=== PATIENT | female | born 1950 | race Caucasian/White ===

== ENCOUNTER 2023-12-24 12:03 | Outpatient (CLI) | payer MEDICARE, SELFPAY ==
[2023-12-24 13:25] LABS: Hematocrit 38.9 % (37.0-47.0); Hemoglobin 12.2 g/dL (12.0-15.0); Mean Corpuscular HGB Conc 31.4 g/dl (32-36); Mean Platelet Volume 11.1 fl (7.4-10.4); Platelet Count Result 235 k/mm3 (150-375); Red Blood Count 3.93 M/mm3 (4.2-5.4); Red Cell Distribution Width 16.2 % (11.5-14.5); White Blood Count 5.8 K/mm3 (4.5-10.0)
[2023-12-24 13:32] LABS: Alanine Aminotransferase 20 U/L (6-35); Alkaline Phosphatase 50 U/L (38-126); Anion Gap 10 mmol/L (8-16); Aspartate Amino Transferase 31 U/L (14-36); Bilirubin,Total 0.6 mg/dL (0.2-1.3); Blood Urea Nitrogen 25 mg/dL (7-17); Calcium 10.5 mg/dL (8.4-10.2); Carbon Dioxide 23 mmol/L (22-30); Chloride 104 mmol/L (98-107); Cholesterol 134 mg/dL (0-200); Estimated Glomerular Filt Rate 37; Glucose 93 mg/dL (65-110); HDL Direct 68 mg/dL; Potassium 3.9 mmol/L (3.4-5.0); Sodium 137 mmol/L (137-145); Triglycerides 74 mg/dL (<150)
[2023-12-24 13:43] LABS: LDL Cholesterol Direct 54 mg/dL
[2023-12-24 13:49] LABS: Free T4 Free Thyroxine 1.05 ng/mL (0.78-2.19)
== END 2023-12-24 12:04 | disposition home or self-care (01) ==
PROVIDERS: PCP Family Medicine; Visit Provider Physician Assistant
DX: R53.83 Other fatigue (principal); D64.9 Anemia, unspecified; Z13.1 Encounter for screening for diabetes mellitus; E11.9 Type 2 diabetes mellitus without complications; Z13.220 Encounter for screening for lipoid disorders
CPT/HCPCS: 36415; 80053; 80061; 83036; 84439; 84443; 85027

== ENCOUNTER 2024-01-02 12:37 | Outpatient (CLI) | payer MEDICARE, SELFPAY ==
--- NOTE | ~2024-01-02 | CT_ITS ---
EXAMINATION: CT brain wo con DATE: 01/02/2024 13:14 INDICATION: Headache TECHNIQUE: Computed tomography (CT) of the head was performed without intravenous contrast. Sagittal and coronal reconstructions were performed. The mA was adjusted according to patient size. Iterative reconstruction technique was employed. The dose-length product was 599.57 mGy-cm. COMPARISON: None FINDINGS: Small region of encephalomalacia consistent with chronic infarct at the anterosuperior aspect of the right insula and underlying periventricular white matter. No acute intracranial hemorrhage, acute inf arction or abnormal extra axial fluid collection. There is mild scattered white matter hypoattenuatio n consistent with chronic small vessel ischemic disease. Symmetric prominence of the sulci and and bell barachnoid spaces overlying the convexities consistent with mild age-appropriate diffuse cerebral vol ume loss. Ventricles are normal and symmetric. No mass/mass effect. Mild mucosal thickening the righ t maxillary, left sphenoid and bilateral ethmoid sinuses with posterior layering mucus in the left sp henoid sinus. The orbits and mastoid air cells are normal. Intracranial calcified cerebral atheroscle rosis is noted. IMPRESSION: 1. Small old infarct at the right insula and subinsular periventricular white matter. No acute intrac ranial process. 2. Age-related changes including mild diffuse volume loss and mild scattered white matter hypoattenua tion consistent with chronic small vessel ischemic disease. 3. Sinus disease with dependently layering mucus in the left sphenoid sinus. Correlate clinically for acute sinusitis. Reviewed, dictated and finalized at location L. IMPRESSION: 1. Small old infarct at the right insula and subinsular periventricular white m atter. No acute intracranial process. 2. Age-related changes including mild diffuse volume loss and mild scattered wh ite matter hypoattenuation consistent with chronic small vessel ischemic diseas e. 3. Sinus disease with dependently layering mucus in the left sphenoid sinus. Co rrelate clinically for acute sinusitis.
== END 2024-01-02 12:38 ==
PROVIDERS: PCP Physician Assistant; Visit Provider Physician Assistant
DX: R51.9 Headache, unspecified (principal); S09.90XA Unspecified injury of head, initial encounter; X58.XXXA Exposure to other specified factors, initial encounter
CPT/HCPCS: 70450

== ENCOUNTER 2024-07-06 12:23 | Outpatient (CLI) | payer MEDICARE, SELFPAY ==
--- NOTE | ~2024-07-06 | CT_ITS ---
EXAMINATION: CT diagnostic chest wo con DATE: 07/06/2024 14:12 INDICATION: R06.02 - Shortness of breath TECHNIQUE: Computed tomography (CT) of the chest was performed without intravenous contrast. Addition al 3D reconstructions utilizing coronal maximum intensity projection (MIP) were performed. Automated exposure control and iterative reconstruction technique were employed. The dose-length product was 18 9.19 mGy-cm. COMPARISON: None FINDINGS: Mildly decreased lung volumes with mosaic attenuation in both lungs which appears to result from atel ectasis related mild groundglass opacity with scattered subsegmental regions of more lucent air jasmin ing likely related to small airway disease. There is a concave contour to the posterior wall of the t rachea consistent with at least partially expiratory phase of imaging. Discoid atelectasis in the rig ht lower lobe. There are few small calcified right lower lobe nodules along with calcified right michel r and mediastinal lymph nodes and a single small hepatic calcification, all consistent with old granu lomatous disease. No pneumonia, septal line thickening to suggest pulmonary edema or pleural effusion . Cardiomegaly. Atherosclerotic coronary artery calcifications. No pericardial effusion. Thoracic aor ta is normal in caliber. No pathologically enlarged thoracic lymphadenopathy. 2-3 mm nonobstructing r ight renal stone. Cholecystectomy clips at the gallbladder fossa. Moderate thoracic spondylosis with chronic appearing mild anterior wedging of a few mid and lower thoracic vertebral bodies. IMPRESSION: 1. Small lung volumes with mosaic attenuation likely collecting atelectasis related to partially expi ratory phase of imaging with small regions of subsegmental air trapping related to small airway disea se. 2. Cardiomegaly. Reviewed, dictated and finalized at location B. IMPRESSION: 1. Small lung volumes with mosaic attenuation likely collecting atelectasis rel ated to partially expiratory phase of imaging with small regions of subsegmenta l air trapping related to small airway disease. 2. Cardiomegaly.
--- NOTE | 2024-07-07 09:23 | WPDPFTINT ---
PFT Procedure Performed PFT Procedure Performed Spirometry with Pre/Post Bronchodilator Plethysmography (Lung Vol) Diffusing Cap (DLCO) Flow Vol Loop PFT Interpretation Lung volumes were measured with the body plethysmography method. The diminished lung volumes are indicative of restrictive respiratory disease. Spirometry showed diminished expiratory flow rates and a normal FEV1 to FVC ratio 75%, also consistent with restrictive respiratory disease. Following administration of a bronchodilator there was significant increase in the FEV1. This significant improvement in expiratory flow rates after bronchodilators may suggest that there is an underlying obstructive airway disease that is being unmasked. Clinical correlation advised. Lung diffusion capacity is within the normal range at 83% predicted. The flow-volume loop is unremarkable. Impression: Mild restrictive respiratory disease. Significant response to bronchodilators may indicate underlying obstructive airway disease. Lung diffusion capacity within the normal range.
--- NOTE | 2024-07-07 09:29 | WPDSIXMINUTE ---
Six Minute Walk Procedure Procedure Performed Pulmonary Stress Test (6 min walk) Six Minute Walk Six Minute Walk: This 6 minute walk test was conducted with the patient breathing ambient air. The pre walk oxyhemoglobin saturation was 99%. The patient walked 152 m with no stops during testing. During the walk the oxyhemoglobin saturation remained in the range of 95% to 96%. Impression: No evidence of oxyhemoglobin desaturation on this testing.
== END 2024-07-06 12:24 | disposition home or self-care (01) ==
PROVIDERS: PCP Family Medicine; Visit Provider Physician Assistant
DX: R06.02 Shortness of breath (principal); R94.2 Abnormal results of pulmonary function studies; I51.7 Cardiomegaly
CPT/HCPCS: 71250; 94060; 94375; 94618; 94726; 94729

== ENCOUNTER 2024-07-19 12:12 | Outpatient (CLI) | payer MEDICARE, SELFPAY ==
--- NOTE | ~2024-07-19 | MR_ITS ---
MRI of the brain Clinical History: Mild cognitive impairment Technique: Axial and sagittal T1-weighted images were acquired. These were followed by axial T2-weigh geno, diffusion weighted, gradient, and FLAIR images. Findings: No acute infarct, intracranial hemorrhage or mass lesion. There is probable chronic infarct in the right frontal periventricular white matter. Probable small focal chronic infarct in the poste rior left temporal lobe. Ventricles and subarachnoid spaces are dilated. Orbits are unremarkable. Paranasal sinuses and mastoi d air cells are clear. Major flow voids are intact. Sagittal midline structures are intact. Probably empty sella syndrome. IMPRESSION: No definite acute abnormality. Chronic infarcts, as above. Probable empty sella syndrome. Reviewed, dictated and finalized at location .
== END 2024-07-19 12:13 | disposition home or self-care (01) ==
PROVIDERS: PCP Family Medicine; Visit Provider Psychiatry & Neurology Neurology
DX: G31.84 Mild cognitive impairment of uncertain or unknown etiology (principal); E11.9 Type 2 diabetes mellitus without complications; I10 Essential (primary) hypertension; G43.909 Migraine, unspecified, not intractable, without status migrainosus; G62.9 Polyneuropathy, unspecified; I48.0 Paroxysmal atrial fibrillation; Z87.828 Personal history of other (healed) physical injury and trauma
CPT/HCPCS: 70551

== ENCOUNTER 2024-08-18 09:08 | Outpatient (CLI) | payer MEDICARE, SELFPAY ==
--- NOTE | 2024-09-09 09:10 | WPDSLEEPSTUD ---
Sleep Study Date of Study: 08/18/24 Ordering Provider: NISHI Moy Interpreting Physician: Hien Sung DO Sleep Study Type: Polysomnogram Height: 1.57 m Weight: 77.111 kg Body Mass Index: 31.1 Neck Circumference (inches): 14 [place]: 7 Reason for Sleep Study Previously diagnosed DAYANNA but couldn't tolerate CPAP. Has difficulty falling and staying asleep. Sleep History The patient is a 74-year-old female that had a sleep study ordered by the pulmonary group for evaluation of sleep apnea. The patient denies awakening from sleep short of breath. She occasionally awakens at night with heartburn, belching or cough. She occasionally snores but it is never loud enough that others complain. She occasionally has trouble sleeping when she has a cold. She denies waking up gasping for air throughout the night. She denies having breathing problems at night observed by herself or others. She occasionally sweats excessively at night. She denies having heart palpitations or irregular heartbeats during the night. She frequently falls asleep during the day but never while driving. She denies sleep paralysis, cataplexy and hypnagogic / hypnopompic hallucinations. She denies having trouble at school or work due to sleepiness. She occasionally has nightmares. She occasionally remembers her dreams. She frequently has thoughts racing through her mind. She occasionally feels sad, depressed and anxious. She occasionally has muscular tension. She occasionally notices parts of her body jerk. She frequently kicks during the night. She frequently has crawling and aching feelings in her legs and occasionally has leg pain during the night. She denies grinding her teeth during sleep and denies awakening with morning jaw pain. She is frequently bothered by pain during the day and occasionally awakened by pain during the night. She frequently wakes up feeling stiff in the morning. She frequently wakes up with sore or achy muscles. She frequently wakes up with pain in the neck, spine or other joints. She goes to bed at 10:00 p.m. on weekdays and at 11:00 p.m. on the weekends. It takes her several hours to fall asleep. She wakes up twice throughout the night to urinate and is able to fall back asleep within 30 minutes. She wakes up at 10:00 a.m. on weekdays and between 1-2 p.m. on the weekends. She typically gets 8 hours of sleep per night. She will stay in bed for 30 minutes after waking up in the. She currently lives with her daughter and son-in-law. She denies consuming any caffeinated beverages within 2 hours of bedtime. She denies engaging in physical exercise before bedtime. She will read and watch television before falling asleep. She will take naps in the afternoon or the evening but they are not refreshing. She consumes 1 caffeinated beverage per day. She quit smoking cigarettes over 25 years ago. She denies alcohol and recreational drug use. [facility] Past Medical History Medical History Anxiety Arthritis Cerebral infarction Failed total left knee replacement HLD (hyperlipidemia) Hypertension Hypothyroidism Irritable bowel syndrome MCI (mild cognitive impairment) Migraine Mixed connective tissue disease Neuropathy PAF (paroxysmal atrial fibrillation) Polyarteritis nodosa Stroke (~2021) T2DM (type 2 diabetes mellitus) Surgical History Surgical History H/O decompression of ulnar nerve H/O: hysterectomy History of carpal tunnel surgery Hx of cholecystectomy Family History Family History Father Diabetes mellitus Hypertension Anxiety Depression Mother Depression Hypertension Anxiety Diabetes mellitus Sibling Alcoholism Cancer Cerebrovascular accident Daughter Breast cancer Hypertension Diabetes mellitus Social History Social History Smoking status: Former smoker Second hand tobacco smoke exposure: No Smoking end date: 10/21/98 Alcohol intake: never Substance use: never Substance use type: does not use Do You Feel Safe in your Home?: Yes Lack of Transportation: No Lack of Food: Never True Current Housing: I Have Housing Concerned About Future Housing: No Difficulty Paying Gas/Electric Bills: No Difficulty Paying for Meds: No Currently Unemployed: No Education: Bachelor's Degree Difficulty w/ Childcare or Family Care: No Occupation/Education: retired Gender identity (if verbalized by the patient): Female Sexual Orientation (if Verbalized by the Patient): Straight or Heterosexual Spiritual care concerns: No Agree to blood products: No Medications Home Medications Medication Instructions Recorded Confirmed Type atorvastatin 40 mg tablet 40 mg PO DAILY 12/24/23 07/16/24 History hydroxychloroquine 200 mg tablet 200 mg PO DAILY 12/24/23 07/16/24 History pentoxifylline 400 mg 400 mg PO TID 12/24/23 07/16/24 History tablet,extended release rivaroxaban 20 mg tablet (Xarelto) 20 mg PO QPM 12/24/23 07/16/24 History topiramate 25 mg capsule,extended 25 mg PO DAILY 12/24/23 07/16/24 History release 24 hr duloxetine 30 mg capsule,delayed 90 mg PO DAILY #270 caps 04/30/24 07/16/24 Rx release eszopiclone 1 mg tablet (Lunesta) 1 mg PO QHS #1 tablet 06/24/24 07/16/24 Rx krill oil 500 mg capsule mg PO DAILY 06/24/24 07/16/24 History loratadine 10 mg tablet (Allergy 10 mg PO DAILY 06/24/24 07/16/24 History Relief (loratadine)) qfmlwzoq-wgum-suls 8 mg-folic 400 1 tablet PO DAILY 06/24/24 07/16/24 History mcg-K 50 mcg-lutein 300 mcg tablet (Centrum Silver Women) fenofibrate 160 mg tablet 160 mg PO DAILY #90 tabs 06/28/24 07/16/24 Rx metoprolol succinate 50 mg 50 mg PO DAILY #90 tabs 06/28/24 07/16/24 Rx tablet,extended release 24 hr levothyroxine 50 mcg tablet 50 mcg PO DAILY #90 tabs 06/30/24 07/16/24 Rx albuterol sulfate 90 mcg/actuation 1 puff inhalation Q4H PRN 07/09/24 07/16/24 Rx aerosol inhaler shortness of breath or wheezing 90 days #3 device budesonide-formoterol HFA 160 2 puff inhalation Q12H 90 days #3 07/09/24 07/16/24 Rx mcg-4.5 mcg/actuation aerosol device inhaler (Symbicort) dicyclomine 20 mg tablet 20 mg PO BID #180 tabs 07/10/24 07/16/24 Rx ezetimibe 10 mg tablet (Zetia) 10 mg PO DAILY #90 tabs 08/06/24 Rx omeprazole 20 mg capsule,delayed 20 mg PO DAILY #90 caps 08/06/24 Rx release rimegepant 75 mg disintegrating 75 mg PO ONCE PRN migraine 08/11/24 Rx tablet (Nurtec ODT) headache #18 tabs gabapentin 300 mg capsule 300 mg PO TID #270 caps 08/23/24 Rx diltiazem HCl 240 mg 240 mg PO DAILY #90 caps 08/24/24 Rx capsule,extended release 24 hr Sleep Procedure A full night polysomnogram using the [employer]ia multi-channel system recorded the standard physiologic parameters including EEG, EOG, submentalis EMG, anterior tibialis EMG, EKG, body position, nasal and oral airflow using nasal pressure sensor and thermistor.? Respiratory parameters of chest and abdominal movements were recorded with Respiratory Inductance Plethysmography belts. Oxygen saturation was recorded by pulse oximetry. Video monitoring was also performed. Sleep stages, periodic limb movements, and EEG arousals were scored in 30 second epochs according to the criteria of the AASM Scoring Manual. The Apnea-Hypopnea Index was calculated using CMS guidelines for definition of hypopnea with 4% O2 desaturations while scoring respiratory events. Sleep Architecture The total recording time was 433.5 minutes.? The total sleep time was 149.0 minutes. Sleep latency was 61.7 minutes. REM sleep was not achieved during this study. Sleep efficiency was 34.4%. The patient had 25 awakenings for an awakening index of 10.1. Wake after sleep onset time was 223.0 minutes. The patient spent 36.5 minutes, 24.5% of total sleep time in Stage N1. The patient spent 96.0 minutes, 64.4% in Stage N2. The patient spent 16.5 minutes, 11.1% in Stage N3. The patient spent 0.0 minutes, 0.0% in Stage REM sleep. Respiratory Analysis The patient had 2 hypopneas, 17 obstructive apneas for an overall Apnea Hypopnea Index of 7.7. The REM Apnea Hypopnea Index was -. The NREM Apnea Hypopnea Index was 7.7. The patient had a Central Apnea Hypopnea Index of 0. There were 3 Respiratory Effort Related Arousals resulting in a RERA index of 1.2 events per hour. The Respiratory Disturbance Index is 8.9 events per hour. There was no evidence of Terrence-Antonio Respirations. Arousals There were 81 total arousals for an arousal index of 32.6. There were 54 spontaneous arousals for an index of 21.7. There were 5 arousals due to respiratory events for an index of 2.0. There were 16 arousals due to periodic limb movements for an index of 6.4.? There were 6 arousals due to isolated limb movements for an index of 2.4. Periodic Limb Movements The patient had 18 isolated limb movements with an index of 7.2. The patient had 78 periodic limb movements with an index of 31.4, which is elevated (normal < 15). Patient had a total of 96 limb movements with a total limb movement index of 38.7. Oximetry Data The patient had an average oxygen saturation of 97.0% in sleep with a minimum oxygen saturation of 91.0% and a maximum oxygen saturation of 100.0%. The patient had 8 oxygen desaturations that were 4% or greater resulting in an Oxygen Desaturation Index of 3.2.? The patient spent 0 minutes of total sleep time with an oxygen saturation below 88%. Snoring Profile Mild to moderate snoring was present throughout the study. Cardiac Profile The EKG showed atrial fibrillation. The patient had an average pulse rate of 75.8 bpm with a minimum pulse of rate of 55.0 bpm and a maximum pulse rate of 104.0 bpm.? EEG Profile No signs of seizure activity seen. Assessment and Plan Assessment and Plan (1) Obstructive sleep apnea: Code(s): G47.33 - Obstructive sleep apnea (adult) (pediatric) Status: Acute Assessment and Plan: The patient had an overall AHI of 7.7 with desaturation down to 91%. This is consistent with mild sleep apnea. Due to the patient's atrial fibrillation, she qualifies for treatment. I recommend that the patient have a CPAP titration study with the use of a hypnotic (Lunesta 3 mg or Ambien 10 mg) to ensure we obtain enough sleep data and find an optimal pressure. Despite the patient taking Lunesta 2 mg for this study, she took an hour to fall asleep and slept <40% of the night. The patient had a significant number of limb movements during the study with the majority being periodic in nature. The patient's sleep history is highly suggestive of Restless Leg Syndrome. I recommend that the patient have a serum ferritin drawn for evaluation of iron deficiency anemia. If the patient has a serum ferritin less than 75 ng/mL, I recommend starting a daily iron supplement and a Vitamin C supplement for better absorption. If the serum ferritin is greater than 75 ng/mL, I recommend starting a dopamine agonist and titrating the dose until symptoms resolve. There are nonpharmacological methods to treat limb movements including daily exercise, stretching calf muscles before bed, avoiding excessive amounts of caffeine and alcohol, vitamin B supplementation, magnesium lotion massaged into legs before bed, and use of a weighted blanket. Data The data obtained during this sleep study is adequate for interpretation. Certification This sleep study has been reviewed by a board certified sleep medicine physician.
[2024-09-14 14:35] VITALS: BMI 31.1
== END 2024-08-19 06:34 | disposition home or self-care (01) ==
LOC: ANHCSM 09:11
PROVIDERS: PCP Family Medicine; Visit Provider Physician Assistant
DX: G47.33 Obstructive sleep apnea (adult) (pediatric) (principal)
CPT/HCPCS: 95810

== ENCOUNTER 2024-09-26 09:26 | Outpatient (CLI) | payer MEDICARE, SELFPAY ==
--- NOTE | ~2024-09-26 | US_ITS ---
Procedure: Duplex Doppler examination of the bilateral carotids. Indication: Cerebral infarction Technique: Real time, color-flow and pulse wave Doppler examination of the bilateral carotids was performed. Findings: Medrano scale ultrasonography of the right neck demonstrated no significant plaque. There was demonstrat ion of normal color-flow and Doppler waveforms within the right common, internal and external carotid arteries. The peak systolic velocities in the right common, internal and external carotid arteries w ere demonstrated to be 70 cm/sec, 49 cm/sec and 37 cm/sec respectively. The right ICA/CCA ratio was 1 .0.The proximal right internal carotid artery demonstrates 0% stenosis relative to the normal distal artery lumen diameter. Medrano scale sonography of the left neck demonstrated no significant plaque. There was demonstration of normal color-flow and wave forms within the left common, internal and external carotid arteries. The peak systolic velocities in the left common, internal and external carotid arteries were demonstrate d to be 52cm/sec, 95 cm/sec and 81 cm/sec respectively. The left ICA/CCA ratio was 2.0. The proximal left internal carotid artery demonstrates 0% stenosis relative to the normal distal artery lumen diam eter. There was antegrade flow demonstrated in the bilateral vertebral arteries. Impression: No hemodynamically significant stenosis of the bilateral internal carotid arteries. Antegrade flow in the bilateral vertebral arteries. Note: The methodology used is an indirect measurement validated against a direct method (such as the NASCET criteria) that compares diameters at the stenosis to the distal ICA. Reviewed, dictated and finalized at [facility]. MOTOR OPERATOR Impression: No hemodynamically significant stenosis of the bilateral internal carotid arter ies. Antegrade flow in the bilateral vertebral arteries. Note: The methodology used is an indirect measurement validated against a direct meth od (such as the NASCET criteria) that compares diameters at the stenosis to the distal ICA.
== END 2024-09-26 09:27 | disposition home or self-care (01) ==
PROVIDERS: PCP Family Medicine; Visit Provider Psychiatry & Neurology Neurology
DX: I63.9 Cerebral infarction, unspecified (principal)
CPT/HCPCS: 93880

== ENCOUNTER 2024-09-26 09:46 | Observation (INO) | payer MEDICARE, SELFPAY ==
[2024-09-26] VITALS (33 sets, daily range): BP systolic 106–140; BP diastolic 47–89; PULSE 61–88; RESP 13–21; TEMP 36.3–36.9; O2SAT 83–100; BMI 34.9
--- NOTE | ~2024-09-26 | MR_ITS ---
MRI of the lumbar spine Clinical History: Pain, right lower extremity weakness Technique: Axial T2-weighted images, and sagittal T1-weighted, T2-weighted, and T2 fat-sat images wer e acquired. Findings: There is no fracture of the lumbar spine. There is 4 mm anterolisthesis of L4 over L5. No b one marrow signal abnormality seen. At L1-L2, there is no disc bulge or herniation. There is mild facet arthropathy. No central canal eladio nosis or neural foraminal narrowing. At L2-L3, there is no disc bulge or herniation. There is mild to moderate facet arthropathy. No centr al canal stenosis or neural foraminal narrowing. At L3-L4, there is no disc bulge or herniation. There is mild to moderate facet arthropathy. No centr al canal stenosis or neural foraminal narrowing. At L4-L5, there is minimal disc bulge and severe facet arthropathy. No central canal stenosis or neur al foraminal narrowing. At L5-S1, there is no disc bulge or herniation. There is moderate to advanced facet arthropathy. No s felicity canal stenosis or neural foraminal narrowing. Paravertebral soft tissues are unremarkable. There is a probable mild syrinx of the very distal spina l cord, the central spinal canal dilated to 2 mm. Impression: Facet arthropathy and lumbar spine, as above, but no spinal canal stenosis or neural foraminal narrow ing. No disc bulge or herniation. 4 mm anterolisthesis of L4 over L5. Mild syrinx of the distal thoracic spinal cord, as detailed above. Reviewed, dictated and finalized at location . ACCOUNTANT Impression: Facet arthropathy and lumbar spine, as above, but no spinal canal stenosis or n eural foraminal narrowing. No disc bulge or herniation. 4 mm anterolisthesis of L4 over L5. Mild syrinx of the distal thoracic spinal cord, as detailed above.
--- NOTE | ~2024-09-26 | CT_ITS ---
EXAMINATION: CTA brain carotid DATE: 09/26/2024 15:10 INDICATION: Right hemiparesis. TECHNIQUE: Computed tomographic angiography (CTA) of the head was performed with 100 mL Omnipaque-350 intravenous contrast. CTA of the neck was performed with intravenous contrast. Automated exposure co ntrol and iterative reconstruction technique were employed. The dose-length product was 996.03 mGy-cm . Maximum intensity projection and volume rendered 3D-reconstructions were created by the [employer] t on a separate workstation. COMPARISON: Head CT 09/26/2024 FINDINGS: HEAD CTA: There are old infarcts involving the left cerebellum, left occipital lobe, right insula, an d right frontal lobe. There is no intracranial hemorrhage, acute infarction, or abnormal intracranial mass lesion. The ventricles are normal in size. The orbits are normal. There is mucosal thickening i n the paranasal sinuses. There is a small right mastoid effusion. The vertebral arteries are codomina nt. There is associated stenosis of basilar artery or the posterior cerebral arteries. There is no si gnificant stenosis of the intracranial internal carotid arteries or anterior or middle cerebral arter ies. Anterior communicating artery is normal. The posterior communicating arteries are normal. NECK CTA: There are no pathologically enlarged lymph nodes. There is no significant stenosis of the v ertebral arteries. There is plaque in the proximal internal carotid arteries. 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 There is 0% stenosis of the proximal right int ernal carotid artery relative to normal distal artery lumen diameter (NASCET criteria). There is 38% stenosis of the proximal left internal carotid artery relative to normal distal artery lumen diameter . There is moderate cervical spondylosis. There is an old healed fracture of the sternum. There are o ld healed fractures of T1 and T6 vertebral bodies. IMPRESSION: 1. 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 2. No aneurysm or significant intracranial arterial stenosis. 3. 0% stenosis of the proximal right internal carotid artery relative to normal distal artery lumen d iameter (NASCET criteria). 4. 38% stenosis of the proximal left internal carotid artery relative to normal distal artery lumen d iameter. Reviewed, dictated and finalized at location A. LE APPLICATION ARCHITECT IMPRESSION: 1. 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 2. No aneurysm or significant intracranial arterial stenosis. 3. 0% stenosis of the proximal right internal carotid artery relative to normal distal artery lumen diameter (NASCET criteria). 4. 38% stenosis of the proximal left internal carotid artery relative to normal distal artery lumen diameter.
--- NOTE | ~2024-09-26 | XR_ITS ---
3 VIEWS LUMBAR SPINE Ordering provider: Jose Lisa MD History: . Spondylolisthesis . Comparison: None. FINDINGS: VERTEBRAL BODIES:Anterolisthesis at the level of L4-L5. No visible fracture or subluxation. DISK SPACES: Narrowing of the disc L2-L3 and L4-L5. SOFT TISSUES: Atherosclerotic changes of the aorta. IMPRESSION: No acute osseous abnormality lumbar spine. Anterolisthesis at the level of L4-L5. Reviewed, dictated and finalized at location A. T NURSE MANAGER
--- NOTE | ~2024-09-26 | MR_ITS ---
EXAMINATION: MR brain/brain stem wo con DATE: 09/27/2024 09:46 INDICATION: Right lower extremity weakness. TECHNIQUE: Magnetic resonance imaging (MRI) of the brain and brainstem was performed without intraven ous contrast. COMPARISON: Brain MRI 07/19/2024, CT 09/26/2024 FINDINGS: There is an old infarct in left occipital lobe. There is an old infarct involving right fro ntal lobe and right insula. There are small old infarcts in the cerebellum bilaterally There is no in tracranial hemorrhage, acute infarction, or abnormal intracranial mass lesion. The ventricles are nor mal in size. The orbits are normal. There is mild mucosal thickening in the paranasal sinuses. There is a small right mastoid effusion. IMPRESSION: 1. Old infarcts involving the cerebellum, left occipital lobe, right insula, and right frontal lobe. Reviewed, dictated and finalized at location A. LE SCHOOL SPANISH TEACHER IMPRESSION: 1. Old infarcts involving the cerebellum, left occipital lobe, right insula, an d right frontal lobe.
--- NOTE | ~2024-09-26 | CT_ITS ---
EXAMINATION: CT brain wo con DATE: 09/26/2024 10:51 INDICATION: Altered mental status. TECHNIQUE: Computed tomography (CT) of the head was performed without intravenous contrast. The mA wa s adjusted according to patient size. Iterative reconstruction technique was employed. The dose-lengt h product was 605.33 mGy-cm. COMPARISON: Head CT 01/02/2024, brain MRI 07/19/2024 FINDINGS: There is a small old infarct in left cerebellum. There is an old infarct involving the righ t insula and right frontal lobe. There is an old infarct in the left occipital lobe. There is no intr acranial hemorrhage, acute infarction, or abnormal intracranial mass lesion. The ventricles are genaro l in size. The orbits are normal. There is mucosal thickening in the paranasal sinuses. There is a sm all right mastoid effusion. The orbits are normal. IMPRESSION: 1. 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 Reviewed, dictated and finalized at location A. DIRECTOR IMPRESSION: 1. 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
--- NOTE | ~2024-09-26 | XR_ITS ---
EXAMINATION: XR chest 1V portable DATE: 09/26/2024 10:27 INDICATION: Altered mental status. TECHNIQUE: A single frontal view of the chest was obtained. COMPARISON: Chest CT 07/06/2024 FINDINGS: There is no pneumonia, pleural effusion, or pneumothorax. Cardiomegaly is noted. IMPRESSION: 1. Cardiomegaly. Reviewed, dictated and finalized at location A. OR MOBILE WEB DEVELOPER IMPRESSION: 1. Cardiomegaly.
--- NOTE | ~2024-09-26 | XR_ITS ---
EXAMINATION: XR lumbar spine 2-3V DATE: 09/27/2024 09:50 INDICATION: Low back pain. Right leg weakness. TECHNIQUE: 3 views of lumbar spine were obtained. COMPARISON: Chest CT 07/06/2024 FINDINGS: There is 3 mm anterolisthesis of L4 on L5. There is a chronic compression fracture of T11. There is mildly decreased disc height at L4-L5. There is multilevel facet joint osteoarthritis, sever e in lower lumbar spine. Surgical clips in the right upper quadrant are likely from cholecystectomy. IMPRESSION: 1. Mild lumbar spondylosis. Reviewed, dictated and finalized at location A. CONSULTANT IMPRESSION: 1. Mild lumbar spondylosis.
--- NOTE | 2024-09-26 09:49 | ECG_ITS ---
Test Date: 2024-09-26 10:01:40 Measurements Intervals [place] Rate: 83 P: 0 CA: 0 QRS: 58 QRSD: 97 T: 2 QT: 373 QTc: 439 Interpretive Statements ATRIAL FIBRILLATION LOW QRS VOLTAGE IN PRECORDIAL LEADS [QRS DEFLECTION < 1.0 mV IN CHEST LEADS] NONSPECIFIC T-WAVE ABNORMALITY ABNORMAL RHYTHM ECG No previous ECG available for comparison Electronically Signed On 09-26-2024 14:43:04 [employer] by Miguel Dietrich M.D.
[2024-09-26 10:25] LABS: Basophils Percent Auto 0.4 % (0.2-1.2); Eosinophils Absolute Auto 0.2 K/mm3 (0-0.3); Eosinophils Percent Auto 4.5 % (0-4.4); Hematocrit 39.3 % (37.0-47.0); Hemoglobin 12.9 g/dL (12.0-15.0); Immature Granulocyte Absolute 0.01 K/mm3 (0.00-0.031); Immature Granulocyte Percent A 0.2 % (0-0.5); Lymphocytes Absolute Auto 1.69 K/mm3 (0.9-3.2); Mean Corpuscular HGB Conc 32.8 g/dl (32-36); Mean Corpuscular Hemoglobin 32.7 pg (26-34); Mean Corpuscular Volume 99.7 fl (80-100); Mean Platelet Volume 11.1 fl (7.4-10.4); Monocytes Absolute Auto 0.4 K/mm3 (0.1-0.6); Monocytes Percent Auto 9.2 % (2.6-8.5); Neutrophils Absolute Auto 2.3 K/mm3 (1.3-6.7); Neutrophils Percent Auto 49.7 % (45.5-73.1); Platelet Count Result 203 k/mm3 (150-375); Red Blood Count 3.94 M/mm3 (4.2-5.4); Red Cell Distribution Width 15.1 % (11.5-14.5); White Blood Count 4.7 K/mm3 (4.5-10.0)
[2024-09-26 10:34] LABS: Alanine Aminotransferase 21 U/L (6-35); Albumin Level 3.9 g/dL (3.5-5.1); Alkaline Phosphatase 40 U/L (38-126); Anion Gap 4 mmol/L (4-12); Aspartate Amino Transferase 40 U/L (14-36); Bilirubin,Total 0.7 mg/dL (0.2-1.3); Blood Urea Nitrogen 29 mg/dL (7-17); Calcium 10.6 mg/dL (8.4-10.2); Carbon Dioxide 30 mmol/L (22-30); Chloride 106 mmol/L (98-107); Estimated CRCL calculation 39 ml/min; Estimated Glomerular Filt Rate 44; Glucose 79 mg/dL (65-110); Potassium 3.8 mmol/L (3.4-5.0); Sodium 140 mmol/L (137-145)
[2024-09-26 10:37] LABS: INR 1.7; Prothrombin Time 20.3 Seconds (11.1-14.7)
[2024-09-26 10:38] LABS: Partial Thromboplastin Time 37.8 Seconds (22.3-36.8)
[2024-09-26 10:46] LABS: Troponin I < 0.012 ng/mL (0.000-0.034)
--- NOTE | 2024-09-26 12:13 | ED_ITS ---
HPI - General Adult General Chief complaint: Unspecified Stated complaint: rapid response Time Seen by Provider: 09/26/24 11:01 History of Present Illness HPI narrative: 74-year-old female presenting with right-sided weakness and shakiness. She was getting an outpatient ultrasound performed when she was noted to be dragging her right leg after registration. A rapid response was called and she was brought to the ER. She states that she has had weakness in this leg before but it feels worse. She also feels shaky in her right leg and right arm which she says is new. Denies any new pain. Her daughter is at bedside and helps with the history. She is concerned that the patient has been increasingly depressed and has not been eating or drinking. She is also concerned about polypharmacy and the number medication she is on. Related Data Home Medications ?Medication ?Instructions ?Recorded ?Confirmed ?Last Taken ?Type hydroxychloroquine 200 mg tablet 200 mg PO DAILY 12/24/23 09/26/24 Unknown History pentoxifylline 400 mg 400 mg PO TID 12/24/23 09/26/24 Unknown History tablet,extended release rivaroxaban 20 mg tablet (Xarelto) 20 mg PO QPM 12/24/23 09/26/24 Unknown History krill oil 500 mg capsule 500 mg PO BID 06/24/24 09/26/24 Unknown History loratadine 10 mg tablet (Allergy 10 mg PO DAILY 06/24/24 09/26/24 Unknown History Relief (loratadine)) [id number] 8 mg-folic 400 1 tablet PO DAILY 06/24/24 09/26/24 Unknown History mcg-K 50 mcg-lutein 300 mcg tablet (Centrum Silver Women) atorvastatin 40 mg tablet 40 mg PO HS 09/26/24 09/26/24 Unknown History docusate sodium 100 mg capsule 100 mg PO QID 09/26/24 09/26/24 Unknown History (Colace) ezetimibe 10 mg tablet (Zetia) 10 mg PO HS 09/26/24 09/26/24 Unknown History gabapentin 300 mg capsule 300 mg PO QAM 09/26/24 09/26/24 Unknown History gabapentin 300 mg capsule 600 mg PO HS 09/26/24 09/26/24 Unknown History gabapentin 300 mg tablet 300 mg PO 1200 09/26/24 09/26/24 Unknown History topiramate 25 mg capsule,extended 25 mg PO QAM 09/26/24 09/26/24 Unknown History release 24 hr Allergies Allergy/AdvReac Type Severity Reaction Status Date / Time latex Allergy Severe Itching Verified 08/13/24 14:32 Sulfa (Sulfonamide Allergy Severe Rash Verified 08/13/24 14:32 Antibiotics) acetaminophen (From [place]) AdvReac Severe Hallucinati Verified 08/13/24 14:32 ng hydrocodone (From [place]) AdvReac Severe Hallucinati Verified 08/13/24 14:32 ng hydromorphone (From Dilaudid) AdvReac Severe Hallucinati Verified 08/13/24 14:32 ng kiwi Allergy Severe Swelling Uncoded 09/26/24 21:25 of Lip/Tongue/Throat Review of Systems 2 Review of Systems: All systems reviewed & are unremarkable except as noted in HPI and below PMFSH Past Medical History Medical History (Updated 10/03/24 @ 13:25 by Charissa Key MD) Bilateral occipital neuralgia Migraine syndrome TIA (transient ischemic attack) Cerebral infarction MCI (mild cognitive impairment) Failed total left knee replacement T2DM (type 2 diabetes mellitus) Neuropathy Hypothyroidism Mixed connective tissue disease Polyarteritis nodosa HLD (hyperlipidemia) Hypertension PAF (paroxysmal atrial fibrillation) Irritable bowel syndrome Stroke (~2021) Migraine Arthritis Anxiety Surgical History Surgical History History of carpal tunnel surgery H/O decompression of ulnar nerve Hx of cholecystectomy H/O: hysterectomy Family History Family History Father Diabetes mellitus Hypertension Anxiety Depression Mother Depression Hypertension Anxiety Diabetes mellitus Sibling Alcoholism Cancer Cerebrovascular accident Daughter Breast cancer Hypertension Diabetes mellitus Social History Social History Smoking status: Former smoker Second hand tobacco smoke exposure: No Smoking end date: 10/21/98 Alcohol intake: current Drinks per week: 1 Substance use: never Substance use type: does not use Do You Feel Safe in your Home?: Yes Lack of Transportation: No Lack of Food: Never True Current Housing: I Have Housing Concerned About Future Housing: No Difficulty Paying Gas/Electric Bills: No Difficulty Paying for Meds: No Currently Unemployed: No Education: Bachelor's Degree Difficulty w/ Childcare or Family Care: No Occupation/Education: retired Gender identity (if verbalized by the patient): Female Sexual Orientation (if Verbalized by the Patient): Straight or Heterosexual Spiritual care concerns: No Agree to blood products: No Exam 2 Narrative: GENERAL: Nontoxic, no acute distress, pleasant cooperative HEAD: Normocephalic, atraumatic. EYES: PERRLA and EOMI. ENT: Mucous membranes moist. NECK: Supple. CHEST: Clear to auscultation. No respiratory distress. HEART: Regular rate and rhythm ABDOMEN: Soft, nontender, nondistended EXTREMITIES: Normal range of motion. SKIN: Warm, dry, no rash. NEURO: Alert and oriented x3. 5/5 strength in all extremities though she is unable to lift her right leg as much as her left PSYCH: Normal mood and affect. Course Vital Signs Vital signs: Vital Signs Pulse Rate 68 09/26/24 09:49 Respiratory Rate 20 09/26/24 09:49 Blood Pressure 140/81 09/26/24 09:49 Temperature 98.8 F 09/29/24 14:00 Pulse Rate 89 09/29/24 14:00 Respiratory Rate 16 09/29/24 14:00 Blood Pressure 101/42 L 09/29/24 14:00 Pulse Oximetry 98 09/29/24 14:00 Oxygen Delivery Room Air 09/29/24 09:26 Fraction of Inspired Oxygen 21 09/28/24 08:58 Medical Decision Making [facility] Narrative Medical decision making narrative: 74-year-old female presenting with worsening right-sided weakness. Vitals are stable. EKG with atrial fibrillation with a ventricular rate in the 80s. Blood work without significant abnormalities. Chest x-ray without acute abnormalities. CT brain shows old infarcts. CTA was obtained which shows no large vessel occlusion. Patient is already anticoagulated. Will keep her for observation for TIA workup. She and her daughter are agreeable this plan. I spoke with the hospitalist who has accepted her for admission. I spoke with neurology will follow along. Differential Diagnosis Differential Diagnosis: Right-sided weakness, TIA, CVA Medical Records Medical records reviewed: Yes I reviewed the external patient's medical records. Vital Signs Vital Signs: Vital Signs Pulse Rate 68 09/26/24 09:49 Respiratory Rate 20 09/26/24 09:49 Blood Pressure 140/81 09/26/24 09:49 Temperature 98.8 F 09/29/24 14:00 Pulse Rate 89 09/29/24 14:00 Respiratory Rate 16 09/29/24 14:00 Blood Pressure 101/42 L 09/29/24 14:00 Pulse Oximetry 98 09/29/24 14:00 Oxygen Delivery Room Air 09/29/24 09:26 Fraction of Inspired Oxygen 21 09/28/24 08:58 Lab Data Lab results reviewed: Yes I reviewed the patient's lab results. 09/27/24 05:42 09/27/24 05:42 Labs: Lab Results 09/26/24 09/26/24 09/26/24 Range/Units 10:14 10:15 13:09 WBC 4.7 (4.5-10.0) K/mm3 RBC 3.94 L (4.2-5.4) M/mm3 Hgb 12.9 (12.0-15.0) g/dL Hct 39.3 (37.0-47.0) % MCV 99.7 (80-100) fl MCH 32.7 (26-34) pg MCHC 32.8 (32-36) g/dl RDW 15.1 H (11.5-14.5) % Plt Count 203 (150-375) k/mm3 MPV 11.1 H (7.4-10.4) fl Immature Gran % (Auto) 0.2 (0-0.5) % Neut % (Auto) 49.7 (45.5-73.1) % Lymph % (Auto) 36.0 (18.3-44.2) % [place] % (Auto) 9.2 H (2.6-8.5) % Eos % (Auto) 4.5 H (0-4.4) % Baso % (Auto) 0.4 (0.2-1.2) % Lymph # (Auto) 1.69 (0.9-3.2) K/mm3 [place] # (Auto) 0.4 (0.1-0.6) K/mm3 Eos # (Auto) 0.2 (0-0.3) K/mm3 Baso # (Auto) 0.0 (0.0-0.1) K/mm3 Abs Immat Gran (auto) 0.01 (0.00-0.031) K/mm3 Absolute Neuts (auto) 2.3 (1.3-6.7) K/mm3 Absolute Nucleated RBC 0.000 (0.0-0.012) K/mm3 Nucleated RBC % 0.0 (0.0-0.2) % PT 20.3 H (11.1-14.7) Seconds INR 1.7 APTT 37.8 H (22.3-36.8) Seconds Sodium 140 (137-145) mmol/L Potassium 3.8 (3.4-5.0) mmol/L Chloride 106 (98-107) mmol/L Carbon Dioxide 30 (22-30) mmol/L Anion Gap 4 (4-12) mmol/L BUN 29 H (7-17) mg/dL Creatinine 1.20 H (0.7-1.0) mg/dL Estim Creat Clear Calc 39 ml/min Estimated GFR 44 L (59 - ) Glucose 79 (65-110) mg/dL Calcium 10.6 H (8.4-10.2) mg/dL Total Bilirubin 0.7 (0.2-1.3) mg/dL AST 40 H (14-36) U/L ALT 21 (6-35) U/L Alkaline Phosphatase 40 (38-126) U/L Troponin I < 0.012 (0.000-0.034) ng/mL NT-Pro-B Natriuret Pep 2440 H (19.9-100) pg/mL Total Protein 7.0 (6.3-8.2) g/dL Albumin 3.9 (3.5-5.1) g/dL Urine Color Yellow (Yellow) Urine Appearance Turbid H (Clear) Urine pH 8.0 (5.0-9.0) Ur Specific [place] 1.022 (1.001-1.035) Urine Protein Trace (Negative) mg/dL Urine Glucose (UA) Negative (Negative) mg/dL Urine Ketones Negative (Negative) mg/dL Ur Blood (Man) Negative (Negative) Urine Nitrate Negative (Negative) Urine Bilirubin Negative (Negative) Urine Urobilinogen 1.0 (<2.0) mg/dL Leukocyte Esterase Rfl Trace H (Negative) NENA/UL Urine RBC 0-2 (0-2) /hpf Urine WBC 0-5 (0-3) /hpf Ur Squamous Epith Cells None seen (Few) /hpf Urine Bacteria None seen /hpf Urine Casts 3-5 Imaging Data Radiologist's impression: ITS Impressions Chest X-Ray 09/26/24 10:30 IMPRESSION: 1. Cardiomegaly. Head CT 09/26/24 10:55 IMPRESSION: 1. 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 Critical Care Time Critical Care Time Critical Care Time: No Discharge Plan Discharge Clinical Impression: TIA (transient ischemic attack), Right leg weakness Patient Disposition: Still a Patient Condition: Stable
--- NOTE | 2024-09-26 13:03 | PC.NURSE ---
pt to bathroom at this time- to provide a urine sample, will give medications when the patient returns to her room.
[2024-09-26] MEDS: KETOROLAC 15 MG/ML VIAL (*BKC) IV PUSH (13:09)
[2024-09-26] MEDS: SODIUM CHLORIDE 0.9% IV 1,000 ML 999 ML IV CONT (13:09)
[2024-09-26 13:22] LABS: Add Urine Microscopic? YES; Appearance Urine Turbid (Clear); Bacteria Urine None Seen /hpf; Bilirubin Urine Negative (Negative); Blood Urine Negative (Negative); Color Urine Yellow (Yellow); Glucose Urine UA Negative (Negative); Ketones Urine Negative (Negative); Leukocyte Esterase Ur Trace LEU/UL (Negative); Nitrate Urine Negative (Negative); Protein Urine Trace mg/dL (Negative); RBC Urine 0-2 /hpf (0-2); Specific Grav Ur 1.022 (1.001-1.035); Squamous Epithelial Cell Urine None Seen /hpf (Few); WBC Urine 0-5 /hpf (0-3)
--- NOTE | 2024-09-26 17:06 | PM.IMHP ---
H&P: HPI History of Present Illness Date/Time: 09/26/24 17:06 Chief Complaint: Right Lower Extremity Weakness Narrative: 74 y/o F presents here with right lower extremity weakness with PMH of CVA, hyperlipidemia, esophageal stricture (no diet modification, has to really chew food and drink a lot of fluids to manage and has previously had a esophageal dilation), hypertension, hypothyroidism, IBS, persistent AFib, sleep apnea (discontinued after laura loss, regained weight and told it is back but does not wear it due to issues with the mask fitting), and diabetes type 2 (resolved, not on medications in A1c 5.7% in July of 2024). The patient presented here via rapid response for further evaluation of right lower extremity weakness. The patient was here at [facility] for an ultrasound of her carotid arteries. After the patient was registered for this image the daughter noted that she was dragging her right lower extremity around 9:45-9:50 a.m. She has a history of weakness in this same extremity due to unknown reasons, has low back pain with hx of shooting pains in her right leg with last occurrence was Tuesday 09/25. States the pain was so excruciating that she felt like she would fall. Daughter also noted that the right leg and right arm had a tremor which she reports is new, discovered at same time as her change in gait. Last known well was around 9:20 a.m. She denies facial droop, dysphagia, dysarthria, right upper extremity weakness, vision changes, or dizziness. +mild headache when she arriver here for the US described as unilateral, behind her right eye, dull, poking sensation, and with later radiation into her posterior neck on the left and above her shoulder blades on the left. Patient also reported some transient tongue heaviness with some difficulty forming words (also felt swollen) and daughter also concerned about her left eye was slightly more droopy. Eyelid drooping not appreciated, tongue normal size and no numbness/heaviness present now. During her initial evaluation in the ED, daughter reported to the ED provider that she was concerned about polypharmacy as possible contributor, citing sleeping more (12+ hours per day, patient attributes this to depression) and she is concerned the patient is not spacing them out properly and taking them all at once. Example: if she wakes up at 3 a.m. she will take them at 4 a.m. and then may take her evening meds an hour or two later. Daughter has pills into days and also into AM and PM. Initial VS at presentation: 97.3? F, HR 68, RR 20, 140/81, and 95% on RA. ED workup showed: No leukocytosis, no anemia, INR 1.7, creatinine 1.2 and GFR 44 (previously 1.4 and GFR 40 on 08/03/2024), UA was turbid with trace leuks. CXR showed cardiomegaly. Head CT showed old infarcts involving the left cerebellum, left occipital lobe, right insula, and right frontal lobe. CTA of the head/neck read by stat reads, which showed no acute findings per ED provider. Review of Systems Review of Systems: All systems reviewed & are unremarkable except as noted in HPI and below PMFSH Past Medical History Medical History Anxiety Arthritis Cerebral infarction Failed total left knee replacement HLD (hyperlipidemia) Hypertension Hypothyroidism Irritable bowel syndrome MCI (mild cognitive impairment) Migraine Mixed connective tissue disease Neuropathy PAF (paroxysmal atrial fibrillation) Polyarteritis nodosa Stroke (~2021) T2DM (type 2 diabetes mellitus) Surgical History Surgical History H/O decompression of ulnar nerve H/O: hysterectomy History of carpal tunnel surgery Hx of cholecystectomy Family History Family History Father Diabetes mellitus Hypertension Anxiety Depression Mother Depression Hypertension Anxiety Diabetes mellitus Sibling Alcoholism Cancer Cerebrovascular accident Daughter Breast cancer Hypertension Diabetes mellitus Social History Social History Smoking status: Former smoker Second hand tobacco smoke exposure: No Smoking end date: 10/21/98 Alcohol intake: current Drinks per week: 1 Substance use: never Substance use type: does not use Do You Feel Safe in your Home?: Yes Lack of Transportation: No Lack of Food: Never True Current Housing: I Have Housing Concerned About Future Housing: No Difficulty Paying Gas/Electric Bills: No Difficulty Paying for Meds: No Currently Unemployed: No Education: Bachelor's Degree Difficulty w/ Childcare or Family Care: No Occupation/Education: retired Gender identity (if verbalized by the patient): Female Sexual Orientation (if Verbalized by the Patient): Straight or Heterosexual Spiritual care concerns: No Agree to blood products: No Meds Home Medications and Allergies Home Medications Medication Instructions Recorded Confirmed Type hydroxychloroquine 200 mg tablet 200 mg PO DAILY 12/24/23 09/26/24 History pentoxifylline 400 mg 400 mg PO TID 12/24/23 09/26/24 History tablet,extended release rivaroxaban 20 mg tablet (Xarelto) 20 mg PO QPM 12/24/23 09/26/24 History duloxetine 30 mg capsule,delayed 90 mg PO DAILY #270 caps 04/30/24 09/26/24 Rx release krill oil 500 mg capsule 500 mg PO BID 06/24/24 09/26/24 History loratadine 10 mg tablet (Allergy 10 mg PO DAILY 06/24/24 09/26/24 History Relief (loratadine)) lfvwtzfb-zhno-pidc 8 mg-folic 400 1 tablet PO DAILY 06/24/24 09/26/24 History mcg-K 50 mcg-lutein 300 mcg tablet (Centrum Silver Women) metoprolol succinate 50 mg 50 mg PO DAILY #90 tabs 06/28/24 09/26/24 Rx tablet,extended release 24 hr levothyroxine 50 mcg tablet 50 mcg PO DAILY #90 tabs 06/30/24 09/26/24 Rx albuterol sulfate 90 mcg/actuation 1 puff inhalation Q4H PRN 07/09/24 09/26/24 Rx aerosol inhaler shortness of breath or wheezing 90 days #3 device budesonide-formoterol HFA 160 2 puff inhalation Q12H 90 days #3 07/09/24 09/26/24 Rx mcg-4.5 mcg/actuation aerosol device inhaler (Symbicort) omeprazole 20 mg capsule,delayed 20 mg PO DAILY #90 caps 08/06/24 09/26/24 Rx release diltiazem HCl 240 mg 240 mg PO DAILY #90 caps 08/24/24 09/26/24 Rx capsule,extended release 24 hr aripiprazole 5 mg tablet (Abilify) 5 mg PO QHS #30 tabs 09/21/24 09/26/24 Rx dicyclomine 20 mg tablet 20 mg PO BID #180 tabs 09/24/24 09/26/24 Rx atorvastatin 40 mg tablet 40 mg PO HS 09/26/24 09/26/24 History docusate sodium 100 mg capsule 100 mg PO QID 09/26/24 09/26/24 History (Colace) ezetimibe 10 mg tablet (Zetia) 10 mg PO HS 09/26/24 09/26/24 History gabapentin 300 mg capsule 300 mg PO QAM 09/26/24 09/26/24 History gabapentin 300 mg capsule 600 mg PO HS 09/26/24 09/26/24 History gabapentin 300 mg tablet 300 mg PO 1200 09/26/24 09/26/24 History topiramate 25 mg capsule,extended 25 mg PO QAM 09/26/24 09/26/24 History release 24 hr topiramate 25 mg tablet 50 mg PO HS 09/26/24 09/26/24 History Allergies Allergy/AdvReac Type Severity Reaction Status Date / Time latex Allergy Severe Itching Verified 08/13/24 14:32 Sulfa (Sulfonamide Allergy Severe Rash Verified 08/13/24 14:32 Antibiotics) acetaminophen [From [place]] AdvReac Severe Hallucinati Verified 08/13/24 14:32 ng hydrocodone [From [place]] AdvReac Severe Hallucinati Verified 08/13/24 14:32 ng hydromorphone [From Dilaudid] AdvReac Severe Hallucinati Verified 08/13/24 14:32 ng kiwi Allergy Severe Swelling Uncoded 09/26/24 21:25 of Lip/Tongue/Throat Vital Signs Vital Signs - 24 hr 09/26/24 09:49 09/26/24 09:53 09/26/24 10:08 Temperature 97.4 F L Pulse Rate 68 61 78 Respiratory Rate 20 18 Blood Pressure 140/81 115/75 Pulse Oximetry 95 Oxygen Delivery Room Air 09/26/24 11:03 09/26/24 11:39 09/26/24 11:45 Temperature Pulse Rate 72 64 86 Respiratory Rate 15 16 17 Blood Pressure 112/64 Pulse Oximetry 98 100 Oxygen Delivery 09/26/24 11:46 09/26/24 12:00 09/26/24 12:02 Temperature Pulse Rate 70 77 85 Respiratory Rate 15 14 16 Blood Pressure 118/54 L 115/47 L Pulse Oximetry Oxygen Delivery 09/26/24 12:15 09/26/24 12:16 09/26/24 13:07 Temperature Pulse Rate 87 81 Respiratory Rate 18 16 Blood Pressure 106/89 Pulse Oximetry 98 90 83 L Oxygen Delivery 09/26/24 13:11 09/26/24 13:15 09/26/24 13:34 Temperature Pulse Rate 85 81 76 Respiratory Rate 15 21 H 18 Blood Pressure 130/69 Pulse Oximetry Oxygen Delivery 09/26/24 13:45 09/26/24 13:46 09/26/24 14:00 Temperature Pulse Rate 86 74 72 Respiratory Rate 17 15 13 Blood Pressure 110/64 Pulse Oximetry Oxygen Delivery 09/26/24 14:02 09/26/24 14:15 09/26/24 14:17 Temperature Pulse Rate 82 81 86 Respiratory Rate 18 17 15 Blood Pressure 122/61 108/77 Pulse Oximetry Oxygen Delivery 09/26/24 14:30 09/26/24 14:32 09/26/24 14:45 Temperature Pulse Rate 82 82 72 Respiratory Rate 18 16 15 Blood Pressure 124/68 Pulse Oximetry 100 Oxygen Delivery 09/26/24 14:47 09/26/24 15:10 09/26/24 15:15 Temperature Pulse Rate 76 79 78 Respiratory Rate 17 13 21 H Blood Pressure 111/63 Pulse Oximetry 100 Oxygen Delivery 09/26/24 15:30 09/26/24 15:45 09/26/24 16:00 Temperature Pulse Rate 79 88 78 Respiratory Rate 18 19 18 Blood Pressure Pulse Oximetry 98 Oxygen Delivery Exam Const: General: comfortable and no acute distress Other: , female, nontoxic appearance, elderly HENMT: Face/Nose/Sinus: Normal nares present Mouth: Yes moist mucous membranes Eyes: General: appearance normal, both eyes and all related structures Sclera: sclerae normal Pupils: Equal, round and reactive pupils present EOM: EOMs intact bilaterally Other: No nystagmus or gaze deviation noted. Resp: Effort & Inspection: normal respiratory effort Auscultation: clear to auscultation bilaterally Cardio: Rate: regular rate Rhythm: regular rhythm Other: S1-S2 present without murmur, rub, ectopy GI: Other: Abdomen soft, nondistended, nontender. Normoactive bowel sounds. Skin: General skin exam: normal color and no rashes or lesions noted Wounds: no wounds Neuro: Speech: normal speech Sensory Exam: normal sensation Other: No facial droop or dysarthria. No issues with extinction. No numbness. Pedal pushes equal and strong. Bilateral upper extremity orthodontic technician assistant equal and strong. No drift noted to the left lower extremity. Right leg weakness with lift some bouncing without hitting bed and fine tremor noted from exertion of holding up. A&O x4. Extrem: General: normal to inspection Psych: Mental Status: mental status grossly normal Affect: normal affect Other: Good insight and judgment, pleasant H&P: Results Labs Labs: Short CBC 09/26/24 Range/Units 10:15 WBC 4.7 (4.5-10.0) K/mm3 Hgb 12.9 (12.0-15.0) g/dL Hct 39.3 (37.0-47.0) % Plt Count 203 (150-375) k/mm3 BMP 09/26/24 10:15 Sodium 140 Potassium 3.8 Chloride 106 Carbon Dioxide 30 BUN 29 H Creatinine 1.20 H Glucose 79 Calcium 10.6 H Cardiac Enzymes 09/26/24 Range/Units 10:15 Troponin I < 0.012 (0.000-0.034) ng/mL Liver Function 09/26/24 Range/Units 10:15 Total Bilirubin 0.7 (0.2-1.3) mg/dL AST 40 H (14-36) U/L ALT 21 (6-35) U/L Alkaline Phosphatase 40 (38-126) U/L Albumin 3.9 (3.5-5.1) g/dL Urine 09/26/24 Range/Units 13:09 Urine Color Yellow (Yellow) Urine Appearance Turbid H (Clear) Urine pH 8.0 (5.0-9.0) Ur Specific [place] 1.022 (1.001-1.035) Urine Protein Trace (Negative) mg/dL Urine Glucose (UA) Negative (Negative) mg/dL Assessment and Plan Assessment and plan (1) Right leg weakness: Code(s): R29.898 - Other symptoms and signs involving the musculoskeletal system Status: Acute Assessment and Plan: New deficits of right lower extremity weakness starting discovered around 9:45 a.m. last known well at at 9:00 a.m. - admission for observation and telemetry - not candidate for thrombolytics, on Xarelto - not candidate for thrombectomy, no LVO seen on CTA - CXR: 1. Cardiomegaly - head CT: 1. 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 - CTA head/neck: 1. 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 2. No aneurysm or significant intracranial arterial stenosis. 3. 0% stenosis of the proximal right internal carotid artery relative to normal distal artery lumen diameter (NASCET criteria). 4. 38% stenosis of the proximal left internal carotid artery relative to normal distal artery lumen diameter. - neurology consulted, awaiting formal recs - brain MRI - echo w/Bubble ordered - adding XR lumbar spine to rule out ortho spine etiology for right lower extremity weakness - neuro checks Q4 - PT/OT to eval and treat - monitor daily labs - add lipid panel, A1C 5.7% on 08/03/2024 - fall precautions - continue Atorvastatin 40 mg PO - on Xarelto, continue - consider 30 day event monitoring at discharge - DDx: orthospine etiology vs CVA vs TIA (2) T2DM (type 2 diabetes mellitus): Qualifiers: Diabetes mellitus complication status: without complication Diabetes mellitus half-way insulin use: unspecified manager intermediate insulin use status Qualified Code(s): E11.9 - Type 2 diabetes mellitus without complications Code(s): E11.9 - Type 2 diabetes mellitus without complications Status: Resolved Assessment and Plan: - A1C 5.7% on 08/03/2024 (3) Hypothyroidism: Qualifiers: Hypothyroidism type: other Qualified Code(s): E03.8 - Other specified hypothyroidism Code(s): E03.9 - Hypothyroidism, unspecified Status: Chronic Assessment and Plan: - continue home medication: 50 mcg daily (4) Hypertension: Qualifiers: Hypertension type: unspecified Qualified Code(s): I10 - Essential (primary) hypertension Code(s): I10 - Essential (primary) hypertension Status: Chronic Assessment and Plan: - chronic, currently 111/63 - continue home medications: Metoprolol ER 50 mg daily - monitor (5) Obstructive sleep apnea: Code(s): G47.33 - Obstructive sleep apnea (adult) (pediatric) Status: Chronic Assessment and Plan: - continue home CPAP Plan Diet: Heart healthy GI Prophylaxis: Not currently indicated DVT Prophylaxis: Continue Xarelto Lines: Peripheral Code Status: DNR/DNI, no medications Quality VTE Prophylaxis VTE prophylaxis: pharmacologic ordered Hospitalist MIPS Advance Care Plan I have confirmed that the patient's Advanced Care Plan is present, code status is documented, or surrogate decision maker is listed in patient medical record.: Yes Medication Reconciliation I have utilized all available resources to obtain, update and review the patients current medications (includes all prescriptions, OTC, herbals, cannabis, and nutritional supplements).: Yes
[2024-09-26 17:31] LABS: NT Pro B Type Natriuretic Pept 2440 pg/mL (19.9-100)
[2024-09-26 19:35] LABS: Glucose Point of Care 82 mg/dl (65-105)
[2024-09-26 20:54] LABS: Glucose Point of Care 107 mg/dl (65-105)
[2024-09-27] VITALS (14 sets, daily range): BP systolic 94–136; BP diastolic 52–60; PULSE 71–98; RESP 16–97; TEMP 36.3–36.8; O2SAT 95–100
[2024-09-27] MEDS: LEVOTHYROXINE SODIUM 50 MCG TABLET PO (05:46)
[2024-09-27 06:07] LABS: Basophils Percent Auto 0.6 % (0.2-1.2); Eosinophils Absolute Auto 0.2 K/mm3 (0-0.3); Eosinophils Percent Auto 3.6 % (0-4.4); Hematocrit 38.5 % (37.0-47.0); Hemoglobin 12.3 g/dL (12.0-15.0); Immature Granulocyte Absolute 0.01 K/mm3 (0.00-0.031); Immature Granulocyte Percent A 0.2 % (0-0.5); Lymphocytes Absolute Auto 1.85 K/mm3 (0.9-3.2); Lymphocytes Percent Auto 36.8 % (18.3-44.2); Mean Corpuscular HGB Conc 31.9 g/dl (32-36); Mean Corpuscular Hemoglobin 32.5 pg (26-34); Mean Corpuscular Volume 101.6 fl (80-100); Mean Platelet Volume 10.9 fl (7.4-10.4); Monocytes Absolute Auto 0.4 K/mm3 (0.1-0.6); Neutrophils Absolute Auto 2.6 K/mm3 (1.3-6.7); Neutrophils Percent Auto 50.8 % (45.5-73.1); Platelet Count Result 175 k/mm3 (150-375); Red Blood Count 3.79 M/mm3 (4.2-5.4); Red Cell Distribution Width 15.2 % (11.5-14.5)
[2024-09-27 06:19] LABS: Anion Gap 5 mmol/L (4-12); Blood Urea Nitrogen 28 mg/dL (7-17); Calcium 10.1 mg/dL (8.4-10.2); Carbon Dioxide 28 mmol/L (22-30); Chloride 106 mmol/L (98-107); Cholesterol 126 mg/dL (0-200); Estimated CRCL calculation 36 ml/min; Estimated Glomerular Filt Rate 40; Glucose 88 mg/dL (65-110); HDL Direct 63 mg/dL; Potassium 4.1 mmol/L (3.4-5.0); Sodium 139 mmol/L (137-145); Triglycerides 83 mg/dL (<150)
[2024-09-27 06:29] LABS: LDL Cholesterol Direct 37 mg/dL
--- NOTE | 2024-09-27 08:09 | P.PNIM_ITS ---
Progress Note: A&P Assessment and Plan (1) Right leg weakness: Code(s): R29.898 - Other symptoms and signs involving the musculoskeletal system Status: Acute Assessment and Plan: New deficits of right lower extremity weakness starting discovered around 9:45 a.m. last known well at at 9:00 a.m. - admission for observation and telemetry - not candidate for thrombolytics, on Xarelto - not candidate for thrombectomy, no LVO seen on CTA - CXR: 1. Cardiomegaly - head CT: 1. 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 - CTA head/neck: 1. 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 2. No aneurysm or significant intracranial arterial stenosis. 3. 0% stenosis of the proximal right internal carotid artery relative to normal distal artery lumen diameter (NASCET criteria). 4. 38% stenosis of the proximal left internal carotid artery relative to normal distal artery lumen diameter. - neurology consulted, awaiting recs - brain MRI - echo w/Bubble ordered - adding XR lumbar spine to rule out ortho spine etiology for right lower e xtremity weakness - neuro checks Q4 - PT/OT to eval and treat - monitor daily labs - add lipid panel, A1C 5.7% on 08/03/2024 - fall precautions - continue Atorvastatin 40 mg PO - on Xarelto, continue - consider 30 day event monitoring at discharge - DDx: orthospine etiology vs CVA vs TIA (2) T2DM (type 2 diabetes mellitus): Qualifiers: Diabetes mellitus complication status: without complication Diabetes mellitus prison insulin use: unspecified prison insulin use status Qualified Code(s): E11.9 - Type 2 diabetes mellitus without complications Code(s): E11.9 - Type 2 diabetes mellitus without complications Status: Resolved Assessment and Plan: - A1C 5.7% on 08/03/2024 (3) Hypothyroidism: Qualifiers: Hypothyroidism type: other Qualified Code(s): E03.8 - Other specified hypothyroidism Code(s): E03.9 - Hypothyroidism, unspecified Status: Chronic Assessment and Plan: - continue home medication: 50 mcg daily (4) Hypertension: Qualifiers: Hypertension type: unspecified Qualified Code(s): I10 - Essential (primary) hypertension Code(s): I10 - Essential (primary) hypertension Status: Chronic Assessment and Plan: - chronic- reviewed and stable - continue home medications: Metoprolol ER 50 mg daily - monitor (5) Obstructive sleep apnea: Code(s): G47.33 - Obstructive sleep apnea (adult) (pediatric) Status: Chronic Assessment and Plan: - continue CPAP (6) Fall: Code(s): W19.XXXA - Unspecified fall, initial encounter Status: Acute Assessment and Plan: will add pt/ot (7) Compression fracture of T11 vertebra: Code(s): S22.080A - Wedge compression fracture of T11-T12 vertebra, initial encounter for closed fracture Status: Acute Assessment and Plan: per lumbar spine xray will consult ortho spine for further management lidocaine patch for now Plan Diet: Heart healthy GI Prophylaxis: Not currently indicated DVT Prophylaxis: Continue Xarelto Lines: Peripheral Code Status: DNR/DNI, no medications Time Spent With Patient Time with patient: Greater than 35 minutes Subjective Date/time seen: 09/27/24 08:09 Interval history: Rt lower extremity weakness 74 y/o F presents here with right lower extremity weakness with PMH of CVA, hyperlipidemia, esophageal stricture, hypertension, hypothyroidism, IBS, persistent AFib, sleep apnea (doesnot wear CPAP) and diabetes type 2 (resolved, not on medications in A1c 5.7% in July of 2024). The patient presented here via rapid response for further evaluation of right lower extremity weakness. The patient was here at [facility] for an ultrasound of her carotid arteries. Daughter noted that she was dragging her right lower extremity around 9:45-9:50 a.m. She has a history of weakness in this same extremity due to unknown reasons, has low back pain with hx of shooting pains in her right leg with last occurrence was Tuesday 09/25. States the pain was so excruciating that she felt like she would fall. Daughter also noted that the right leg and right arm had a tremor which she reports is new, discovered at same time as her change in gait. Last known well was around 9:20 a.m. She denies facial droop, dysphagia, dysarthria, right upper extremity weakness, vision changes, or dizziness. +mild headache when she arriver here for the US described as unilateral, behind her right eye, dull, poking sensation, and with later radiation into her posterior neck on the left and above her shoulder blades on the left. Patient also reported some transient tongue heaviness with some difficulty forming words (also felt swollen) and daughter also concerned about her left eye was slightly more droopy. Eyelid drooping not appreciated, tongue normal size and no numbness/heaviness present now. In ED: No leukocytosis, no anemia, INR 1.7, creatinine 1.2 and GFR 44 (previously 1.4 and GFR 40 on 08/03/2024), UA was turbid with trace leuks. CXR - cardiomegaly. Head CT - old infarcts involving the left cerebellum, left occipital lobe, right insula, and right frontal lobe. CTA of the head/neck read by stat reads, which showed no acute findings per ED provider. 09/27- MRI this am. pt reports moving here to stay with her daughter from [place] 1 year ago or so. She reports falling- had total of 5-6 falls in the last 6 months. Her back pain started around the times she was falling a lot. She was never evaluated or checked out with imaging after falls. Review of Systems Review of Systems: All systems reviewed & are unremarkable except as noted in HPI and below Exam Narrative: right leg weakness with lift some bouncing without hitting bed/tremor from exertion of holding up, pushes equal, no other deficits. heart and lungs fine. Const: General: comfortable and no acute distress Other: , female, nontoxic appearance, elderly HENMT: Face/Nose/Sinus: Normal nares present Mouth: Yes moist mucous membranes Eyes: General: appearance normal, both eyes and all related structures Sclera: sclerae normal Pupils: Equal, round and reactive pupils present EOM: EOMs intact bilaterally Other: No nystagmus or gaze deviation noted. Resp: Effort & Inspection: normal respiratory effort Auscultation: clear to auscultation bilaterally Cardio: Rate: regular rate Rhythm: regular rhythm Other: S1-S2 present without murmur, rub, ectopy GI: Other: Abdomen soft, nondistended, nontender. Normoactive bowel sounds. Skin: General skin exam: normal color and no rashes or lesions noted Wounds: no wounds Neuro: Cranial nerves: Yes Equal, round and reactive pupils present Speech: normal speech Sensory Exam: normal sensation Other: No facial droop or dysarthria. No issues with extinction. No numbness. Pedal pushes equal and strong. Bilateral upper extremity candle cutter equal and strong. No drift noted to the left lower extremity. Right leg weakness with lift some bouncing without hitting bed and fine tremor noted from exertion of holding up. A&O x4. Extrem: General: normal to inspection Psych: Mental Status: mental status grossly normal Affect: normal affect Other: Good insight and judgment, pleasant Objective Data Vital Signs Vital Signs: Vital Signs - 24 hr 09/26/24 09:49 09/26/24 09:53 09/26/24 10:08 Temperature 97.4 F L Pulse Rate 68 61 78 Respiratory Rate 20 18 Blood Pressure 140/81 115/75 Pulse Oximetry 95 Oxygen Delivery Room Air 09/26/24 11:03 09/26/24 11:39 09/26/24 11:45 Temperature Pulse Rate 72 64 86 Respiratory Rate 15 16 17 Blood Pressure 112/64 Pulse Oximetry 98 100 Oxygen Delivery 09/26/24 11:46 09/26/24 12:00 09/26/24 12:02 Temperature Pulse Rate 70 77 85 Respiratory Rate 15 14 16 Blood Pressure 118/54 L 115/47 L Pulse Oximetry Oxygen Delivery 09/26/24 12:15 09/26/24 12:16 09/26/24 13:07 Temperature Pulse Rate 87 81 Respiratory Rate 18 16 Blood Pressure 106/89 Pulse Oximetry 98 90 83 L Oxygen Delivery 09/26/24 13:11 09/26/24 13:15 09/26/24 13:34 Temperature Pulse Rate 85 81 76 Respiratory Rate 15 21 H 18 Blood Pressure 130/69 Pulse Oximetry Oxygen Delivery 09/26/24 13:45 09/26/24 13:46 09/26/24 14:00 Temperature Pulse Rate 86 74 72 Respiratory Rate 17 15 13 Blood Pressure 110/64 Pulse Oximetry Oxygen Delivery 09/26/24 14:02 09/26/24 14:15 09/26/24 14:17 Temperature Pulse Rate 82 81 86 Respiratory Rate 18 17 15 Blood Pressure 122/61 108/77 Pulse Oximetry Oxygen Delivery 09/26/24 14:30 09/26/24 14:32 09/26/24 14:45 Temperature Pulse Rate 82 82 72 Respiratory Rate 18 16 15 Blood Pressure 124/68 Pulse Oximetry 100 Oxygen Delivery 09/26/24 14:47 09/26/24 15:10 09/26/24 15:15 Temperature Pulse Rate 76 79 78 Respiratory Rate 17 13 21 H Blood Pressure 111/63 Pulse Oximetry 100 Oxygen Delivery 09/26/24 15:30 09/26/24 15:45 09/26/24 16:00 Temperature Pulse Rate 79 88 78 Respiratory Rate 18 19 18 Blood Pressure Pulse Oximetry 98 Oxygen Delivery 09/26/24 20:57 09/26/24 20:28 09/26/24 22:00 Temperature 98.4 F 98.1 F Pulse Rate 88 70 81 Respiratory Rate 18 16 Blood Pressure 116/58 L 114/60 Pulse Oximetry 100 96 Oxygen Delivery 09/27/24 00:00 09/27/24 04:00 09/27/24 06:00 Temperature 98.0 F Pulse Rate 71 82 79 Respiratory Rate 97 H Blood Pressure 118/59 L Pulse Oximetry 97 Oxygen Delivery Intake/Output Intake/Output: Intake & Output 09/24/24 09/25/24 09/26/24 09/27/24 23:59 23:59 23:59 23:59 Intake Total 1000 550 Balance 1000 550 Meds/Results Medications: Active Medications Generic Name Dose Route Start Last Admin Trade Name Freq PRN Reason Stop Dose Admin Albuterol 1 puff 09/26/24 22:40 Albuterol Sulfate (*Sp) Aerosol 1 Puff INHALATION Q4HRT PRN shortness of breath or wheezing Aripiprazole 5 mg 09/27/24 21:00 Aripiprazole 5 Mg Tablet PO QHS [facility] Atorvastatin Calcium 40 mg 09/27/24 21:00 Atorvastatin 40 Mg Tablet PO HS [facility] Dicyclomine HCl 20 mg 09/27/24 09:00 Dicyclomine Hcl 10 Mg Capsule PO BID [facility] Diltiazem HCl 240 mg 09/27/24 09:00 Diltiazem Hcl Cd 240 Mg Cap.24hr PO DAILY [facility] Docusate Sodium 100 mg 09/27/24 09:00 Docusate Sodium 100 Mg Capsule PO QID [facility] Duloxetine HCl 90 mg 09/27/24 09:00 Duloxetine Hcl 30 Mg Capsule.Dr PO DAILY [facility] Ezetimibe 10 mg 09/27/24 21:00 Ezetimibe 10 Mg Tablet PO HS [facility] Gabapentin 300 mg 09/27/24 12:00 Gabapentin 300 Mg Capsule PO DAILY@1200 [facility] Gabapentin 300 mg 09/27/24 09:00 Gabapentin 300 Mg Capsule PO QAM [facility] Gabapentin 600 mg 09/27/24 21:00 Gabapentin 300 Mg Capsule PO HS [facility] Hydroxychloroquine Sulfate 200 mg 09/27/24 09:00 Hydroxychloroquine Sulfate 200 Mg Tablet PO DAILY [facility] Levothyroxine Sodium 50 mcg 09/27/24 06:30 09/27/24 05:46 Levothyroxine Sodium 50 Mcg Tablet PO 50 mcg DAILY@0630 [facility] Administration Loratadine 10 mg 09/27/24 09:00 Loratadine 10 Mg Tablet PO DAILY [facility] Metoprolol Succinate 50 mg 09/27/24 09:00 Metoprolol Succinate Ext Rel 50 Mg Tabcr PO DAILY [facility] Miscellaneous Information 0 each 09/26/24 00:01 Topiramate 25mg Er Nonform Can Pt Bring From Home? XX 10/26/24 00:00 CLARIFY [facility] Multivitamins/Calcium 1 tablet 09/27/24 12:00 Therapeutic Multivitamins/Minerals Tab (*Bkc) PO DAILY@1200 [facility] Non-Formulary Medication 500 mg 09/27/24 09:00 Krill Oil PO 10/27/24 08:59 BID [facility] Non-Formulary Medication 25 mg 09/27/24 09:00 Topiramate PO 10/27/24 08:59 QAM [facility] Pantoprazole Sodium 40 mg 09/27/24 09:00 Pantoprazole 40 Mg Tablet PO QAM [facility] Pentoxifylline 400 mg 09/27/24 09:00 Pentoxifylline 400 Mg Tabcr PO TID [facility] Perflutren Lipid Microsphere 0 ml 09/26/24 17:16 Perflutren Lipid Microspheres 1.5 Ml Vial Diluted To 10 Ml Total Volume IV PUSH 09/29/24 17:16 ONCE PRN adequate visualization Protocol Rivaroxaban 20 mg 09/27/24 18:00 Rivaroxaban 20 Mg Tablet PO QPM [facility] Fluticasone/Salmeterol 2 puff 09/27/24 08:00 Fluticasone/Salmeterol 115-21 Mcg Inhaler 1 Puff INHALATION Q12HRT [facility] Topiramate 50 mg 09/27/24 21:00 Topiramate 25 Mg Tablet PO [facility] Radiology Results: ITS Impressions Chest X-Ray 09/26/24 10:30 IMPRESSION: 1. Cardiomegaly. Head CT 09/26/24 10:55 IMPRESSION: 1. 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 Head/Neck CTA 09/26/24 21:06 IMPRESSION: 1. 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 2. No aneurysm or significant intracranial arterial stenosis. 3. 0% stenosis of the proximal right internal carotid artery relative to normal distal artery lumen diameter (NASCET criteria). 4. 38% stenosis of the proximal left internal carotid artery relative to normal distal artery lumen diameter. Labs Labs: Laboratory Results - last 24 hr 09/26/24 09/26/24 09/26/24 10:14 10:15 13:09 WBC 4.7 RBC 3.94 L Hgb 12.9 Hct 39.3 MCV 99.7 MCH 32.7 MCHC 32.8 RDW 15.1 H Plt Count 203 MPV 11.1 H Immature Gran % (Auto) 0.2 Neut % (Auto) 49.7 Lymph % (Auto) 36.0 [place] % (Auto) 9.2 H Eos % (Auto) 4.5 H Baso % (Auto) 0.4 Lymph # (Auto) 1.69 [place] # (Auto) 0.4 Eos # (Auto) 0.2 Baso # (Auto) 0.0 Abs Immat Gran (auto) 0.01 Absolute Neuts (auto) 2.3 Absolute Nucleated RBC 0.000 Nucleated RBC % 0.0 PT 20.3 H INR 1.7 APTT 37.8 H Sodium 140 Potassium 3.8 Chloride 106 Carbon Dioxide 30 Anion Gap 4 BUN 29 H Creatinine 1.20 H Estim Creat Clear Calc 39 Estimated GFR 44 L Glucose 79 POC Capillary Glucose Calcium 10.6 H Total Bilirubin 0.7 AST 40 H ALT 21 Alkaline Phosphatase 40 Troponin I < 0.012 NT-Pro-B Natriuret Pep 2440 H Total Protein 7.0 Albumin 3.9 Triglycerides Cholesterol LDL Cholesterol Direct HDL Direct Urine Color Yellow Urine Appearance Turbid H Urine pH 8.0 Ur Specific [place] 1.022 Urine Protein Trace Urine Glucose (UA) Negative Urine Ketones Negative Ur Blood (Man) Negative Urine Nitrate Negative Urine Bilirubin Negative Urine Urobilinogen 1.0 Leukocyte Esterase Rfl Trace H Urine RBC 0-2 Urine WBC 0-5 Ur Squamous Epith Cells None seen Urine Bacteria None seen Urine Casts 3-5 09/26/24 09/26/24 09/27/24 19:28 20:42 05:42 WBC 5.0 RBC 3.79 L Hgb 12.3 Hct 38.5 MCV 101.6 H MCH 32.5 MCHC 31.9 L RDW 15.2 H Plt Count 175 MPV 10.9 H Immature Gran % (Auto) 0.2 Neut % (Auto) 50.8 Lymph % (Auto) 36.8 [place] % (Auto) 8.0 Eos % (Auto) 3.6 Baso % (Auto) 0.6 Lymph # (Auto) 1.85 [place] # (Auto) 0.4 Eos # (Auto) 0.2 Baso # (Auto) 0.0 Abs Immat Gran (auto) 0.01 Absolute Neuts (auto) 2.6 Absolute Nucleated RBC 0.000 Nucleated RBC % 0.0 PT INR APTT Sodium 139 Potassium 4.1 Chloride 106 Carbon Dioxide 28 Anion Gap 5 BUN 28 H Creatinine 1.30 H Estim Creat Clear Calc 36 Estimated GFR 40 L Glucose 88 POC Capillary Glucose 82 107 H Calcium 10.1 Total Bilirubin AST ALT Alkaline Phosphatase Troponin I NT-Pro-B Natriuret Pep Total Protein Albumin Triglycerides 83 Cholesterol 126 LDL Cholesterol Direct 37 HDL Direct 63 Urine Color Urine Appearance Urine pH Ur Specific [place] Urine Protein Urine Glucose (UA) Urine Ketones Ur Blood (Man) Urine Nitrate Urine Bilirubin Urine Urobilinogen Leukocyte Esterase Rfl Urine RBC Urine WBC Ur Squamous Epith Cells Urine Bacteria Urine Casts Quality VTE Prophylaxis VTE prophylaxis: pharmacologic ordered
[2024-09-27] MEDS: FLUTICASONE/SALMETEROL 115-21 MCG INHALER 1 PUFF 2 PUFF INHALATION ×2 (08:19→20:12)
[2024-09-27] MEDS: DICYCLOMINE HCL 10 MG CAPSULE 20 MG PO ×2 (09:04→17:33)
[2024-09-27] MEDS: GABAPENTIN 300 MG CAPSULE PO (09:05)
[2024-09-27] MEDS: METOPROLOL SUCCINATE EXT REL 50 MG TABCR PO (09:05)
[2024-09-27] MEDS: HYDROXYCHLOROQUINE SULFATE 200 MG TABLET PO (09:05)
[2024-09-27] MEDS: LORATADINE 10 MG TABLET PO (09:05)
[2024-09-27] MEDS: DOCUSATE SODIUM 100 MG CAPSULE PO ×4 (09:05→20:17)
[2024-09-27] MEDS: DULoxetine HCL 30 MG CAPSULE.DR 90 MG PO (09:06)
[2024-09-27] MEDS: dilTIAZem HCL CD 240 MG CAP.24HR PO (09:06)
[2024-09-27] MEDS: PANTOPRAZOLE 40 MG TABLET PO (09:06)
[2024-09-27] MEDS: PENTOXIFYLLINE 400 MG TABCR PO ×3 (09:06→17:33)
[2024-09-27] MEDS: THERAPEUTIC MULTIVITAMINS/MINERALS TAB (*BKC) 1 TABLET PO (12:32)
[2024-09-27] MEDS: LIDOCAINE 5% PATCH 1 PATCH TRANSDERM (14:51)
[2024-09-27] MEDS: TOPIRAMATE 25 MG TABLET PO (15:04)
--- NOTE | 2024-09-27 16:36 | WPDNEURCNPN ---
Assessment and Plan Assessment and plan (1) Right leg weakness: Code(s): R29.898 - Other symptoms and signs involving the musculoskeletal system Status: Acute (2) Cerebral infarction: Code(s): I63.9 - Cerebral infarction, unspecified Status: Acute (3) T2DM (type 2 diabetes mellitus): Qualifiers: Diabetes mellitus longterm insulin use: unspecified longterm insulin use status Diabetes mellitus complication status: without complication Qualified Code(s): E11.9 - Type 2 diabetes mellitus without complications Code(s): E11.9 - Type 2 diabetes mellitus without complications Status: Resolved (4) PAF (paroxysmal atrial fibrillation): Code(s): I48.0 - Paroxysmal atrial fibrillation Status: Acute Plan 1. Polypharmacy 2. Atrial fibrillation 3. Recurrent TIA and stroke 4. CTA compatible with the previous stroke 5. Echo study with bubble pending 6. Need the adjustment of the medications in addition to continuation of the Xarelto, cecal therapy, and ongoing treatment for diabetes mellitus hypertension. Consult date: 09/27/24 HPI: Roxana Nieto is a 74 year old female Admitted to the hospital through the emergency room the complaints of right-sided weakness along with shaking as per the information available she was getting an outpatient ultrasound performed when she was noted to be dragging her right lower extremity for registration a rapid response was called she was brought to the emergency room where she was noted to have weakness in this leg and she mentioned that she has had the weakness in the same leg before she was shaky in her right lower extremity and right upper extremity she was not complaining of any specific pain but she was concerned that she has been increasingly depressed and has not been eating or drinking. Her medication at the time of visit the ER included rivaroxaban 20mg daily, she has been allergic to multiple medication as outlined particularly involving the hydromorphone that is dilaudid and sulfa. She does have ongoing history of anxiety hypertension hypothyroidism irritable bowel syndrome mild cognitive impairment migraine neuropathy paroxysmal atrial fibrillation polyarthritisnodosa. She is never alcohol intake or substance user and is a former smoker by history. On initial exam in the emergency room she was found to be normal. Her vital signs were normal. CBC CBC was normal BMP with BUN of 29 and mastoids scan negative, chest x-ray with cardiomegaly, head CT scan positive for old infarcts involving the left cerebellum left occipital lobe right insula and right frontal lobe. Head and neck CTA again documenting the infarcts in addition 38% stenosis of the proximal left internal carotid artery relative to normal distal artery lumen. Brain MRI documented old infarcts involving cerebellum left occipital lobe right insula and right frontal lobe. As per the information available from the patient she is on rivaroxaban 20mg daily for the atrial fibrillation but in addition she is on multiple medication including topiramate 50mg at night, pentoxifylline ER 400mg t.i.d., hydroxychloroquine 200mg daily, gabapentin 1200mg daily, duloxetine 90mg daily ADP pressures all 5mg at night. [facility] Past Medical History Medical History Anxiety Arthritis Cerebral infarction Failed total left knee replacement HLD (hyperlipidemia) Hypertension Hypothyroidism Irritable bowel syndrome MCI (mild cognitive impairment) Migraine Mixed connective tissue disease Neuropathy PAF (paroxysmal atrial fibrillation) Polyarteritis nodosa Stroke (~2021) T2DM (type 2 diabetes mellitus) Surgical History Surgical History H/O decompression of ulnar nerve H/O: hysterectomy History of carpal tunnel surgery Hx of cholecystectomy Family History Family History Father Diabetes mellitus Hypertension Anxiety Depression Mother Depression Hypertension Anxiety Diabetes mellitus Sibling Alcoholism Cancer Cerebrovascular accident Daughter Breast cancer Hypertension Diabetes mellitus Social History Social History Smoking status: Former smoker Second hand tobacco smoke exposure: No Smoking end date: 10/21/98 Alcohol intake: current Drinks per week: 1 Substance use: never Substance use type: does not use Do You Feel Safe in your Home?: Yes Lack of Transportation: No Lack of Food: Never True Current Housing: I Have Housing Concerned About Future Housing: No Difficulty Paying Gas/Electric Bills: No Difficulty Paying for Meds: No Currently Unemployed: No Education: Bachelor's Degree Difficulty w/ Childcare or Family Care: No Occupation/Education: retired Gender identity (if verbalized by the patient): Female Sexual Orientation (if Verbalized by the Patient): Straight or Heterosexual Spiritual care concerns: No Agree to blood products: No Meds Home Medications and Allergies Home Medications Medication Instructions Recorded Confirmed Type hydroxychloroquine 200 mg tablet 200 mg PO DAILY 03/05/24 12/07/24 History pentoxifylline 400 mg 400 mg PO TID 12/24/23 09/26/24 History tablet,extended release rivaroxaban 20 mg tablet (Xarelto) 20 mg PO QPM 12/24/23 09/26/24 History duloxetine 30 mg capsule,delayed 90 mg PO DAILY #270 caps 04/30/24 09/26/24 Rx release krill oil 500 mg capsule 500 mg PO BID 06/24/24 09/26/24 History loratadine 10 mg tablet (Allergy 10 mg PO DAILY 06/24/24 09/26/24 History Relief (loratadine)) gyrylklb-wmcg-oeid 8 mg-folic 400 1 tablet PO DAILY 06/24/24 09/26/24 History mcg-K 50 mcg-lutein 300 mcg tablet (Centrum Silver Women) metoprolol succinate 50 mg 50 mg PO DAILY #90 tabs 06/28/24 09/26/24 Rx tablet,extended release 24 hr levothyroxine 50 mcg tablet 50 mcg PO DAILY #90 tabs 06/30/24 09/26/24 Rx albuterol sulfate 90 mcg/actuation 1 puff inhalation Q4H PRN 07/09/24 09/26/24 Rx aerosol inhaler shortness of breath or wheezing 90 days #3 device budesonide-formoterol HFA 160 2 puff inhalation Q12H 90 days #3 07/09/24 09/26/24 Rx mcg-4.5 mcg/actuation aerosol device inhaler (Symbicort) omeprazole 20 mg capsule,delayed 20 mg PO DAILY #90 caps 08/06/24 09/26/24 Rx release diltiazem HCl 240 mg 240 mg PO DAILY #90 caps 08/24/24 09/26/24 Rx capsule,extended release 24 hr aripiprazole 5 mg tablet (Abilify) 5 mg PO QHS #30 tabs 09/21/24 09/26/24 Rx dicyclomine 20 mg tablet 20 mg PO BID #180 tabs 09/24/24 09/26/24 Rx atorvastatin 40 mg tablet 40 mg PO HS 09/26/24 09/26/24 History docusate sodium 100 mg capsule 100 mg PO QID 09/26/24 09/26/24 History (Colace) ezetimibe 10 mg tablet (Zetia) 10 mg PO HS 09/26/24 09/26/24 History gabapentin 300 mg capsule 300 mg PO QAM 09/26/24 09/26/24 History gabapentin 300 mg capsule 600 mg PO HS 09/26/24 09/26/24 History gabapentin 300 mg tablet 300 mg PO 1200 09/26/24 09/26/24 History topiramate 25 mg capsule,extended 25 mg PO QAM 09/26/24 09/26/24 History release 24 hr topiramate 25 mg tablet 50 mg PO HS 09/26/24 09/26/24 History Allergies Allergy/AdvReac Type Severity Reaction Status Date / Time latex Allergy Severe Itching Verified 08/13/24 14:32 Sulfa (Sulfonamide Allergy Severe Rash Verified 08/13/24 14:32 Antibiotics) acetaminophen [From [place]] AdvReac Severe Hallucinati Verified 08/13/24 14:32 ng hydrocodone [From [place]] AdvReac Severe Hallucinati Verified 08/13/24 14:32 ng hydromorphone [From Dilaudid] AdvReac Severe Hallucinati Verified 08/13/24 14:32 ng kiwi Allergy Severe Swelling Uncoded 09/26/24 21:25 of Lip/Tongue/Throat Vital Signs Vital Signs - 24 hr 09/26/24 20:57 09/26/24 20:28 09/26/24 22:00 Temperature 36.9 C 36.7 C Pulse Rate 88 70 81 Respiratory Rate 18 16 Blood Pressure 116/58 L 114/60 Pulse Oximetry 100 96 Oxygen Delivery 09/27/24 00:00 09/27/24 04:00 09/27/24 06:00 Temperature 36.7 C Pulse Rate 71 82 79 Respiratory Rate 97 H Blood Pressure 118/59 L Pulse Oximetry 97 Oxygen Delivery 09/27/24 08:22 09/27/24 09:05 09/27/24 10:47 Temperature Pulse Rate 98 Respiratory Rate Blood Pressure Pulse Oximetry 97 Oxygen Delivery Room Air Room Air 09/27/24 11:19 09/27/24 09:00 09/27/24 14:00 Temperature 36.3 C L Pulse Rate 84 Respiratory Rate 16 Blood Pressure 136/52 L Pulse Oximetry 100 Oxygen Delivery Room Air Room Air Exam Narrative: Exam today revealed her to be awake alert cooperative in no obvious acute distress, head normocephalic with no bruit, ear nose throat examination normal, neck supple with no cervical bruit no thyromegaly no lymphadenopathy, heart is regular lungs clear to auscultation with no rhonchi or crepitations, abdomen soft nontender no organomegaly, neurological examination revealed her to be awake alert cooperative speech not dysphasic not dysarthric not dysphonic pupils round regular feels the vision full extraocular movements full face symmetrical tongue midline motor examination revealed her to have no focal motor deficit reflexes sluggish plantars questionably up no evidence of ataxia or dysmetria finger to nose to finger she had difficulties in performing heel to knee to [place] Results Labs 09/27/24 05:42 09/27/24 05:42 Labs: Short CBC 09/27/24 Range/Units 05:42 WBC 5.0 (4.5-10.0) K/mm3 Hgb 12.3 (12.0-15.0) g/dL Hct 38.5 (37.0-47.0) % Plt Count 175 (150-375) k/mm3 BMP 09/27/24 05:42 Sodium 139 Potassium 4.1 Chloride 106 Carbon Dioxide 28 BUN 28 H Creatinine 1.30 H Glucose 88 Calcium 10.1
[2024-09-27] MEDS: RIVAROXABAN 20 MG TABLET PO (17:33)
[2024-09-27] MEDS: TOPIRAMATE 25 MG TABLET 50 MG PO (20:17)
[2024-09-27] MEDS: GABAPENTIN 300 MG CAPSULE 600 MG PO (20:17)
[2024-09-27] MEDS: EZETIMIBE 10 MG TABLET PO (20:17)
[2024-09-27] MEDS: ARIPiprazole 5 MG TABLET PO (20:17)
[2024-09-27] MEDS: ATORVASTATIN 40 MG TABLET PO (20:17)
[2024-09-28] VITALS (13 sets, daily range): BP systolic 96–126; BP diastolic 49–68; PULSE 69–94; RESP 14–18; TEMP 36.5–36.8; O2SAT 95–98
--- NOTE | 2024-09-28 | ECHO_ITS ---
Patient Info Name: Roxana Nieto Age: 74 years : 1950 Gender: Female Ht: 62 in Wt: 190 lbs BSA: 1.98 m2 HR: 87 bpm BP: 126 / 67 mmHg Heart Rhythm: Sinus Rhythm Technical Quality: Fair Exam Date: 09/28/2024 1:11 PM Exam Location: Echo Lab Patient Status: Inpatient Admit Date: 09/26/2024 Staff Ordering Physician: Whit Goff APRN Director Of Catering: Marlene Bernal RDCS Attending Provider: Bernard Sevilla MD Referring Physician: Shell MOYER; Exam Type: CA echo dop bubble study w con Study Info Indications - c/f new cva Complete two-dimentional, color flow and Doppler transthoracic echocardiogram is performed with agitated saline and with contrast to opacify the left ventricle and to improve the delineation of the left ventricle endocardial borders. Contrast/Agitated Saline Contrast/Ag. Saline: Agitated Saline Amount: 20.00 ml Existing IV Access: Yes IV Access Condition: patent with no signs of infiltration Contrast/Ag. Saline: Definity Amount: 2.00 ml Administered By: Marlene Bernal RDCS Existing IV Access: Yes IV Access Condition: patent with no signs of infiltration Summary 1. Definity contrast administered improved wall motion interpretation. 2. Left ventricular chamber dimension is normal. 3. Left ventricular systolic function is normal, estimated at 60-65%. 4. The left ventricular diastolic function is normal. 5. Tissue doppler E/e' was not performed. 6. Left atrial chamber dimension is mildly enlarged. 7. There is mild aortic valve sclerosis. 8. There is trace aortic valve regurgitation. 9. There is mild mitral valve regurgitation. 10. There is mild to moderate tricuspid valve regurgitation. 11. Moderate pulmonary hypertension, estimated pulmonary arterial systolic pressure is 56 mmHg. 12. Dilated inferior vena cava with <50% collapse upon inspiration consistent with significantly elevated right atrial pressure, 15 mmHg. Left Ventricle Definity contrast administered improved wall motion interpretation. Tissue doppler E/e' was not performed. Left ventricular chamber dimension is normal. Left ventricular systolic function is normal, estimated at 60-65%. The left ventricular diastolic function is normal. Right Ventricle Right ventricular systolic function is normal and with normal TAPSE 2.1 cm. Right ventricular chamber dimension is normal. Left Atria Left atrial chamber dimension is mildly enlarged. Right Atria Right atrial chamber dimension is normal. Atrial Septum Agitated saline injection with and without valsalva maneuver opacified right side cardiac chambers without shunt to left side cardiac chambers. Intact interatrial septum visualized by 2D and agitated saline imaging. Aortic Valve The aortic valve is trileaflet. There is mild aortic valve sclerosis. There is no aortic valve stenosis. There is trace aortic valve regurgitation. Pulmonic Valve There is no pulmonic regurgitation. Mitral Valve There is no mitral valve stenosis. There is mild mitral valve regurgitation. Tricuspid Valve There is mild to moderate tricuspid valve regurgitation. Moderate pulmonary hypertension, estimated pulmonary arterial systolic pressure is 56 mmHg. Pericardium/Pleural There is no pericardial effusion. Inferior Vena Cava Dilated inferior vena cava with <50% collapse upon inspiration consistent with significantly elevated right atrial pressure, 15 mmHg. Aorta The aortic root size at the sinus of Valsalva is normal. Left Ventricular Outflow Tract Name Value Normal LVOT 2D LVOT Diameter 2.0 cm LVOT Doppler LVOT Peak Gradient 6 mmHg LVOT Mean Gradient 2 mmHg LVOT VTI 21 cm LVOT VTI/AV VTI Ratio 0.7 LVOT Stroke Volume 67 ml LVOT CO 5.3 l/min LVOT CI 2.7 l/min/m2 Pulmonic Valve Name Value Normal RVOT Doppler RVOT Peak Gradient 2 mmHg PV Doppler PV Peak Gradient 4 mmHg Mitral Valve Name Value Normal MV Doppler MV Peak Gradient 6 mmHg MV Mean Gradient 2 mmHg MV Area (Cont Eq VTI) 2.0 cm2 MV Regurgitation Doppler MR Peak Gradient 60 mmHg Tricuspid Valve Name Value Normal TV Regurgitation Doppler TR Peak Velocity 320 cm/s TR Peak Gradient 33 mmHg Estimated PAP/RSVP RA Pressure 15 mmHg <=5 PA Systolic Pressure 56 mmHg <36 RV Systolic Pressure 56 mmHg <36 Aorta Name Value Normal Ascending Aorta Ao Root Diameter (MM) 2.7 cm Ao Root Diam Index (MM) 1.4 cm/m2 Aortic Valve Name Value Normal AV Doppler AV Peak Velocity 163 cm/s AV Peak Gradient 11 mmHg AV Mean Gradient 5 mmHg AV VTI 29 cm AV Area (Cont Eq VTI) 2.3 cm2 >=3.0 AV Area (Cont Eq [place]) 2.5 cm2 AV Regurgitation 2D LVOT Area 3.3 cm2 AV Regurgitation Doppler AR Decel Time 1,596 ms AR Decel [place] 183 cm/s2 AR PHT 463 ms Ventricles Name Value Normal LV Dimensions 2D/MM IVS Diastolic Thickness (2D) 0.8 cm 0.6-1.0 LVID Diastole (2D) 4.7 cm 3.8-5.2 LVIW Diastolic Thickness (2D) 0.8 cm 0.6-0.9 LVID Systole (2D) 2.9 cm 2.2-3.5 LVOT Diameter 2.0 cm LV Mass (2D Cubed) 125.41 g 67.00-162.00 LV Mass Index (2D Cubed) 63 g/m2 43-95 Relative Wall Thickness (2D) 0.33 LV Fractional Shortening/Ejection Fraction 2D/MM LV Fractional Shortening (2D) 39 % 27-45 LV EF (2D Teicholz) 70 % 54-74 LV Diastolic Volume (4C MOD) 37 ml LV EF (4C MOD) 60 % LV Diastolic Volume (2C MOD) 45 ml LV EF (2C MOD) 74 % LV Diastolic Volume (BP MOD) 42 ml 46-106 LV Diastolic Volume Index (BP MOD) 21 ml/m2 29-61 LV Systolic Volume (BP MOD) 13 ml 14-42 LV Systolic Volume Index (BP MOD) 7 ml/m2 8-24 LV EF (BP MOD) 69 % 54-74 LV Diastolic Length (4C) 7.4 cm LV Systolic Length (4C) 5.6 cm LV Stroke Volume (4C MOD) 22 ml Atria Name Value Normal LA Dimensions LA Dimension (MM) 5.2 cm 2.7-3.8 LA Volume (4C A-L) 61 ml LA Volume (BP A-L) 61 ml RA Dimensions RA Area (4C) 18.7 cm2 <=18.0 Report Signatures
[2024-09-28] MEDS: LEVOTHYROXINE SODIUM 50 MCG TABLET PO (05:12)
[2024-09-28] MEDS: IBUPROFEN 400 MG TABLET PO (05:46)
[2024-09-28] MEDS: FLUTICASONE/SALMETEROL 115-21 MCG INHALER 1 PUFF 2 PUFF INHALATION ×2 (08:56→19:34)
[2024-09-28] MEDS: DICYCLOMINE HCL 10 MG CAPSULE 20 MG PO ×2 (09:01→17:16)
[2024-09-28] MEDS: PENTOXIFYLLINE 400 MG TABCR PO ×3 (09:01→17:16)
[2024-09-28] MEDS: PANTOPRAZOLE 40 MG TABLET PO (09:02)
[2024-09-28] MEDS: METOPROLOL SUCCINATE EXT REL 50 MG TABCR PO (09:02)
[2024-09-28] MEDS: TOPIRAMATE 25 MG TABLET PO (09:03)
[2024-09-28] MEDS: DOCUSATE SODIUM 100 MG CAPSULE PO ×4 (09:03→21:25)
[2024-09-28] MEDS: LORATADINE 10 MG TABLET PO (09:03)
[2024-09-28] MEDS: HYDROXYCHLOROQUINE SULFATE 200 MG TABLET PO (09:03)
[2024-09-28] MEDS: dilTIAZem HCL CD 240 MG CAP.24HR PO (09:03)
[2024-09-28] MEDS: GABAPENTIN 300 MG CAPSULE PO ×2 (09:03→11:15)
[2024-09-28] MEDS: DULoxetine HCL 30 MG CAPSULE.DR 90 MG PO (09:04)
[2024-09-28] MEDS: LIDOCAINE 5% PATCH 1 PATCH TRANSDERM (09:04)
[2024-09-28] MEDS: THERAPEUTIC MULTIVITAMINS/MINERALS TAB (*BKC) 1 TABLET PO (11:15)
[2024-09-28] MEDS: PERFLUTREN LIPID MICROSPHERES 1.5 ML VIAL DILUTED TO 10 ML TOTAL VOLUME IV PUSH (13:30)
--- NOTE | 2024-09-28 13:49 | PM.IMPN ---
Progress Note: A&P Assessment and Plan (1) Right leg weakness: Code(s): R29.898 - Other symptoms and signs involving the musculoskeletal system Status: Acute Assessment and Plan: New deficits of right lower extremity weakness starting discovered around 9:45 a.m. last known well at at 9:00 a.m. - admission for observation and telemetry - not candidate for thrombolytics, on Xarelto - not candidate for thrombectomy, no LVO seen on CTA - CXR: 1. Cardiomegaly - head CT: 1. 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 - CTA head/neck: 1. 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 2. No aneurysm or significant intracranial arterial stenosis. 3. 0% stenosis of the proximal right internal carotid artery relative to normal distal artery lumen diameter (NASCET criteria). 4. 38% stenosis of the proximal left internal carotid artery relative to normal distal artery lumen diameter. - neurology consulted, awaiting recs - brain MRI - echo w/Bubble ordered - XR lumbar spine to rule out ortho spine etiology for right lower extremity weakness - neuro checks Q4 - PT/OT to eval and treat - monitor daily labs - add lipid panel, A1C 5.7% on 08/03/2024 - fall precautions - continue Atorvastatin 40 mg PO - on Xarelto, continue - consider 30 day event monitoring at discharge - DDx: orthospine etiology vs CVA vs TIA (2) T2DM (type 2 diabetes mellitus): Qualifiers: Diabetes mellitus detention insulin use: unspecified supervisor intermediates insulin use status Diabetes mellitus complication status: without complication Qualified Code(s): E11.9 - Type 2 diabetes mellitus without complications Code(s): E11.9 - Type 2 diabetes mellitus without complications Status: Resolved Assessment and Plan: - A1C 5.7% on 08/03/2024 (3) Hypothyroidism: Qualifiers: Hypothyroidism type: other Qualified Code(s): E03.8 - Other specified hypothyroidism Code(s): E03.9 - Hypothyroidism, unspecified Status: Chronic Assessment and Plan: - continue home medication: 50 mcg daily (4) Hypertension: Qualifiers: Hypertension type: unspecified Qualified Code(s): I10 - Essential (primary) hypertension Code(s): I10 - Essential (primary) hypertension Status: Chronic Assessment and Plan: - chronic- reviewed and stable - continue home medications: Metoprolol ER 50 mg daily - monitor (5) Obstructive sleep apnea: Code(s): G47.33 - Obstructive sleep apnea (adult) (pediatric) Status: Chronic Assessment and Plan: - continue CPAP (6) Fall: Code(s): W19.XXXA - Unspecified fall, initial encounter Status: Acute Assessment and Plan: will add pt/ot (7) Compression fracture of T11 vertebra: Code(s): S22.080A - Wedge compression fracture of T11-T12 vertebra, initial encounter for closed fracture Status: Acute Assessment and Plan: per lumbar spine xray will consult ortho spine for further management lidocaine patch for now Plan Diet: Heart healthy GI Prophylaxis: Not currently indicated DVT Prophylaxis: Continue Xarelto Lines: Peripheral Code Status: DNR/DNI, no medications Subjective Date/time seen: 09/28/24 13:49 Interval history: Rt lower extremity weakness 74 y/o F presents here with right lower extremity weakness with PMH of CVA, hyperlipidemia, esophageal stricture, hypertension, hypothyroidism, IBS, persistent AFib, sleep apnea (doesnot wear CPAP) and diabetes type 2 (resolved, not on medications in A1c 5.7% in July of 2024). The patient presented here via rapid response for further evaluation of right lower extremity weakness. The patient was here at [facility] for an ultrasound of her carotid arteries. Daughter noted that she was dragging her right lower extremity around 9:45-9:50 a.m. She has a history of weakness in this same extremity due to unknown reasons, has low back pain with hx of shooting pains in her right leg with last occurrence was Tuesday 09/25. States the pain was so excruciating that she felt like she would fall. Daughter also noted that the right leg and right arm had a tremor which she reports is new, discovered at same time as her change in gait. Last known well was around 9:20 a.m. She denies facial droop, dysphagia, dysarthria, right upper extremity weakness, vision changes, or dizziness. +mild headache when she arriver here for the US described as unilateral, behind her right eye, dull, poking sensation, and with later radiation into her posterior neck on the left and above her shoulder blades on the left. Patient also reported some transient tongue heaviness with some difficulty forming words (also felt swollen) and daughter also concerned about her left eye was slightly more droopy. Eyelid drooping not appreciated, tongue normal size and no numbness/heaviness present now. In ED: No leukocytosis, no anemia, INR 1.7, creatinine 1.2 and GFR 44 (previously 1.4 and GFR 40 on 08/03/2024), UA was turbid with trace leuks. CXR - cardiomegaly. Head CT - old infarcts involving the left cerebellum, left occipital lobe, right insula, and right frontal lobe. CTA of the head/neck read by stat reads, which showed no acute findings per ED provider. 09/27- MRI this am. pt reports moving here to stay with her daughter from [place] 1 year ago or so. She reports falling- had total of 5-6 falls in the last 6 months. Her back pain started around the times she was falling a lot. She was never evaluated or checked out with imaging after falls. 09/28 seen and examined. feeling better today, pain is a little better controlled. had bm. eating and drinking ok Review of Systems Review of Systems: All systems reviewed & are unremarkable except as noted in HPI and below Exam Narrative: right leg weakness with lift some bouncing without hitting bed/tremor from exertion of holding up, pushes equal, no other deficits. heart and lungs fine. Const: General: comfortable and no acute distress Other: , female, nontoxic appearance, elderly HENMT: Face/Nose/Sinus: Normal nares present Mouth: Yes moist mucous membranes Eyes: General: appearance normal, both eyes and all related structures Sclera: sclerae normal Pupils: Equal, round and reactive pupils present EOM: EOMs intact bilaterally Other: No nystagmus or gaze deviation noted. Resp: Effort & Inspection: normal respiratory effort Auscultation: clear to auscultation bilaterally Cardio: Rate: regular rate Rhythm: regular rhythm Other: S1-S2 present without murmur, rub, ectopy GI: Other: Abdomen soft, nondistended, nontender. Normoactive bowel sounds. Skin: General skin exam: normal color and no rashes or lesions noted Wounds: no wounds Neuro: Cranial nerves: Yes Equal, round and reactive pupils present Speech: normal speech Sensory Exam: normal sensation Other: No facial droop or dysarthria. No issues with extinction. No numbness. Pedal pushes equal and strong. Bilateral upper extremity continuous improvement specialist equal and strong. No drift noted to the left lower extremity. Right leg weakness with lift some bouncing without hitting bed and fine tremor noted from exertion of holding up. A&O x4. Extrem: General: normal to inspection Psych: Mental Status: mental status grossly normal Affect: normal affect Other: Good insight and judgment, pleasant Objective Data Vital Signs Vital Signs: Vital Signs - 24 hr 09/27/24 14:00 09/27/24 16:00 09/27/24 20:13 Temperature 97.4 F L Pulse Rate 84 87 91 Respiratory Rate 16 18 Blood Pressure 136/52 L Pulse Oximetry 100 Oxygen Delivery Fraction of Inspired Oxygen 09/27/24 20:16 09/27/24 20:00 09/27/24 20:00 Temperature Pulse Rate 82 Respiratory Rate Blood Pressure Pulse Oximetry 96 Oxygen Delivery Room Air Room Air Fraction of Inspired Oxygen 09/27/24 19:40 09/27/24 22:02 09/28/24 00:00 Temperature 98.3 F 98.2 F Pulse Rate 89 90 83 Respiratory Rate 18 18 Blood Pressure 102/60 94/52 L Pulse Oximetry 97 95 Oxygen Delivery Fraction of Inspired Oxygen 09/28/24 04:00 09/28/24 06:00 09/28/24 09:02 Temperature 98.0 F Pulse Rate 86 87 94 Respiratory Rate 18 Blood Pressure 126/67 Pulse Oximetry 98 Oxygen Delivery Fraction of Inspired Oxygen 09/28/24 08:58 09/28/24 08:03 09/28/24 09:04 Temperature Pulse Rate 84 Respiratory Rate 18 Blood Pressure Pulse Oximetry 97 97 Oxygen Delivery Room Air Room Air Fraction of Inspired Oxygen 21 09/28/24 12:00 Temperature Pulse Rate 84 Respiratory Rate Blood Pressure Pulse Oximetry Oxygen Delivery Fraction of Inspired Oxygen Intake/Output Intake/Output: Intake & Output 09/25/24 09/26/24 09/27/24 09/28/24 23:59 23:59 23:59 23:59 Intake Total 1000 3210 840 Balance 1000 3210 840 Meds/Results Medications: Active Medications Generic Name Dose Route Start Last Admin Trade Name Freq PRN Reason Stop Dose Admin Albuterol 1 puff 09/26/24 22:40 Albuterol Sulfate (*Sp) Aerosol 1 Puff INHALATION Q4HRT PRN shortness of breath or wheezing Aripiprazole 5 mg 09/27/24 21:00 09/27/24 20:17 Aripiprazole 5 Mg Tablet PO 5 mg QHS SHARATH Administration Atorvastatin Calcium 40 mg 09/27/24 21:00 09/27/24 20:17 Atorvastatin 40 Mg Tablet PO 40 mg HS SHARATH Administration Dicyclomine HCl 20 mg 09/27/24 09:00 09/28/24 09:01 Dicyclomine Hcl 10 Mg Capsule PO 20 mg BID SHARATH Administration Diltiazem HCl 240 mg 09/27/24 09:00 09/28/24 09:03 Diltiazem Hcl Cd 240 Mg Cap.24hr PO 240 mg DAILY SHARATH Administration Docusate Sodium 100 mg 09/27/24 09:00 09/28/24 12:37 Docusate Sodium 100 Mg Capsule PO 100 mg QID SHARATH Administration Duloxetine HCl 90 mg 09/27/24 09:00 09/28/24 09:04 Duloxetine Hcl 30 Mg Capsule.Dr PO 90 mg DAILY SHARATH Administration Ezetimibe 10 mg 09/27/24 21:00 09/27/24 20:17 Ezetimibe 10 Mg Tablet PO 10 mg HS SHARATH Administration Gabapentin 300 mg 09/27/24 12:00 09/28/24 11:15 Gabapentin 300 Mg Capsule PO 300 mg DAILY@1200 SHARATH Administration Gabapentin 300 mg 09/27/24 09:00 09/28/24 09:03 Gabapentin 300 Mg Capsule PO 300 mg QAM SHARATH Administration Gabapentin 600 mg 09/27/24 21:00 09/27/24 20:17 Gabapentin 300 Mg Capsule PO 600 mg HS SHARATH Administration Hydroxychloroquine Sulfate 200 mg 09/27/24 09:00 09/28/24 09:03 Hydroxychloroquine Sulfate 200 Mg Tablet PO 200 mg DAILY SHARATH Administration Ibuprofen 400 mg 09/28/24 05:30 09/28/24 05:46 Ibuprofen 400 Mg Tablet PO 400 mg Q6H PRN Administration Pain Rated 1-3 Levothyroxine Sodium 50 mcg 09/27/24 06:30 09/28/24 05:12 Levothyroxine Sodium 50 Mcg Tablet PO 50 mcg DAILY@0630 SHARATH Administration Lidocaine 1 patch 09/27/24 14:10 09/28/24 09:04 Lidocaine 5% Patch TRANSDERM 1 patch DAILY SHARATH Administration Loratadine 10 mg 09/27/24 09:00 09/28/24 09:03 Loratadine 10 Mg Tablet PO 10 mg DAILY SHARATH Administration Metoprolol Succinate 50 mg 09/27/24 09:00 09/28/24 09:02 Metoprolol Succinate Ext Rel 50 Mg Tabcr PO 50 mg DAILY SHARATH Administration Multivitamins/Calcium 1 tablet 09/27/24 12:00 09/28/24 11:15 Therapeutic Multivitamins/Minerals Tab (*Bkc) PO 1 tablet DAILY@1200 SHARATH Administration Non-Formulary Medication 500 mg 09/27/24 09:00 Krill Oil PO 10/27/24 08:59 BID SHARATH Pantoprazole Sodium 40 mg 09/27/24 09:00 09/28/24 09:02 Pantoprazole 40 Mg Tablet PO 40 mg QAM SHARATH Administration Pentoxifylline 400 mg 09/27/24 09:00 09/28/24 12:37 Pentoxifylline 400 Mg Tabcr PO 400 mg TID SHARATH Administration Perflutren Lipid Microsphere 0 ml 09/26/24 17:16 Perflutren Lipid Microspheres 1.5 Ml Vial Diluted To 10 Ml Total Volume IV PUSH 09/29/24 17:16 ONCE PRN adequate visualization Protocol Rivaroxaban 20 mg 09/27/24 18:00 09/27/24 17:33 Rivaroxaban 20 Mg Tablet PO 20 mg QPM SHARATH Administration Fluticasone/Salmeterol 2 puff 09/27/24 08:00 09/28/24 08:56 Fluticasone/Salmeterol 115-21 Mcg Inhaler 1 Puff INHALATION 2 puff Q12HRT SHARATH Administration Topiramate 25 mg 09/27/24 13:35 09/28/24 09:03 Topiramate 25 Mg Tablet PO 25 mg QAM SHARATH Administration Topiramate 50 mg 09/27/24 21:00 09/27/24 20:17 Topiramate 25 Mg Tablet PO 50 mg HS SHARATH Administration Radiology Results: ITS Impressions Chest X-Ray 09/26/24 10:30 IMPRESSION: 1. Cardiomegaly. Head CT 09/26/24 10:55 IMPRESSION: 1. 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 Head/Neck CTA 09/26/24 21:06 IMPRESSION: 1. 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 2. No aneurysm or significant intracranial arterial stenosis. 3. 0% stenosis of the proximal right internal carotid artery relative to normal distal artery lumen diameter (NASCET criteria). 4. 38% stenosis of the proximal left internal carotid artery relative to normal distal artery lumen diameter. Brain MRI 09/27/24 11:03 IMPRESSION: 1. Old infarcts involving the cerebellum, left occipital lobe, right insula, and right frontal lobe. Lumbar Spine X-Ray 09/27/24 11:12 IMPRESSION: 1. Mild lumbar spondylosis. Lumbar Spine MRI 09/28/24 06:44 Impression: Facet arthropathy and lumbar spine, as above, but no spinal canal stenosis or neural foraminal narrowing. No disc bulge or herniation. 4 mm anterolisthesis of L4 over L5. Mild syrinx of the distal thoracic spinal cord, as detailed above. Quality VTE Prophylaxis VTE prophylaxis: pharmacologic ordered
--- NOTE | 2024-09-28 15:06 | IVDEFINITY ---
Prior to administration of IV Definity the patient was educated on the risks and benefits of the imaging enhancing agent including potential adverse side effects. The patient verbalized understanding. Allergies were verified. No exclusion criteria were identified and at least one of the following inclusion criteria were met: 1) physician request, 2) patient technically difficult to image (per the [place] [employer] guidelines of two or more segments not discernable within the apical view), or 3) questionable left ventricular function. ?
[2024-09-28] MEDS: RIVAROXABAN 20 MG TABLET PO (17:16)
--- NOTE | 2024-09-28 17:32 | WPDNEUROPN ---
Progress Note: A&P Assessment and Plan (1) TIA (transient ischemic attack): Code(s): G45.9 - Transient cerebral ischemic attack, unspecified Status: Acute (2) PAF (paroxysmal atrial fibrillation): Code(s): I48.0 - Paroxysmal atrial fibrillation Status: Acute (3) T2DM (type 2 diabetes mellitus): Qualifiers: Diabetes mellitus skilled nursing insulin use: unspecified supervisor long goods insulin use status Diabetes mellitus complication status: without complication Qualified Code(s): E11.9 - Type 2 diabetes mellitus without complications Code(s): E11.9 - Type 2 diabetes mellitus without complications Status: Resolved (4) Migraine syndrome: Code(s): G43.909 - Migraine, unspecified, not intractable, without status migrainosus Status: Acute (5) Bilateral occipital neuralgia: Code(s): M54.81 - Occipital neuralgia Status: Acute Plan Patient had some weakness in the right lower limb at the time of her admission which has now improved. She does have multiple risk factors for the condition. Left internal carotid artery shows 30% narrowing but none on the right side. In addition she has old infarcts noted on the MRI of the brain. Her other risk factors include diabetes mellitus and atrial fibrillation. She is currently on oral anticoagulation and atorvastatin 40 mg a day. Last LDL was 37 to continue with this treatment. With regard to the headache this of course is a longstanding problem and maybe have referred her for Botox injections. She could be considered for occipital nerve block however since he is on anticoagulation this could be a problem. A course of physical therapy could be and another option. I shall be glad to coordinate care for her upon discharge as an outpatient. Subjective Date/time seen: 09/28/24 17:32 Interval history: Patient presented with a weakness in the right lower limb. However the symptoms have improved to some extent. She also complains of frequent headaches for which she has seen me in my office. Various treatments have failed to improve her condition. She also suffers from chronic lower back pain and is under pain management. She has history of diabetes mellitus. History of atrial fibrillation and is currently on Xarelto. CT angiogram of the head and neck was shows a 38% narrowing of the left internal carotid artery. MRI of the brain shows old infarct however no new infarcts were seen. She was seen by Dr. Esqueda on the day prior to this examination. He denies any other additional new symptoms. No symptoms in the upper limbs. Review of Systems Review of Systems: She continues to be more concerned about the headaches than anything else however she has been referred for Botox therapy and she told me that she has been trying to reach out to the office of Dr. Zurita but cannot get any appointment All systems reviewed & are unremarkable except as noted in HPI and below Exam Narrative: fully conscious alert oriented to self time place and person. Speech is fluent and articulate. Memory appears intact. No aphasia or dysarthria. There is significant tenderness over the greater occipital nerve on both sides. No nuchal rigidity. No tenderness over the temporal arteries. Able to open and close her jaw normally. Cranial nerves injury testing intact. Motor system normal power and tone in both upper and lower limbs. Deep tendon reflexes were generally decreased but no asymmetry. Since he was in grossly intact. Objective Data Vital Signs Vital Signs: Vital Signs - 24 hr 09/27/24 20:13 09/27/24 20:16 09/27/24 20:00 Temperature Pulse Rate 91 Respiratory Rate 18 Blood Pressure Pulse Oximetry 96 Oxygen Delivery Room Air Room Air Fraction of Inspired Oxygen 09/27/24 20:00 09/27/24 19:40 09/27/24 22:02 Temperature 98.3 F 98.2 F Pulse Rate 82 89 90 Respiratory Rate 18 18 Blood Pressure 102/60 94/52 L Pulse Oximetry 97 95 Oxygen Delivery Fraction of Inspired Oxygen 09/28/24 00:00 09/28/24 04:00 09/28/24 06:00 Temperature 98.0 F Pulse Rate 83 86 87 Respiratory Rate 18 Blood Pressure 126/67 Pulse Oximetry 98 Oxygen Delivery Fraction of Inspired Oxygen 09/28/24 09:02 09/28/24 08:58 09/28/24 08:03 Temperature Pulse Rate 94 84 Respiratory Rate Blood Pressure Pulse Oximetry 97 Oxygen Delivery Room Air Fraction of Inspired Oxygen 21 09/28/24 09:04 09/28/24 12:00 09/28/24 14:00 Temperature 97.7 F Pulse Rate 84 82 Respiratory Rate 18 14 Blood Pressure 123/68 Pulse Oximetry 97 97 Oxygen Delivery Room Air Fraction of Inspired Oxygen 09/28/24 16:04 Temperature Pulse Rate 69 Respiratory Rate Blood Pressure Pulse Oximetry Oxygen Delivery Fraction of Inspired Oxygen Intake/Output Intake/Output: Intake & Output 12/04/1309/26/24 09/27/24 09/28/24 23:59 23:59 23:59 23:59 Intake Total 1000 3210 2320 Balance 1000 3210 2320 Meds/Results Medications: Active Medications Generic Name Dose Route Start Last Admin Trade Name Freq PRN Reason Stop Dose Admin Albuterol 1 puff 09/26/24 22:40 Albuterol Sulfate (*Sp) Aerosol 1 Puff INHALATION Q4HRT PRN shortness of breath or wheezing Aripiprazole 5 mg 09/27/24 21:00 09/27/24 20:17 Aripiprazole 5 Mg Tablet PO 5 mg QHS SHARATH Administration Atorvastatin Calcium 40 mg 09/27/24 21:00 09/27/24 20:17 Atorvastatin 40 Mg Tablet PO 40 mg HS SHARATH Administration Dicyclomine HCl 20 mg 09/27/24 09:00 09/28/24 17:16 Dicyclomine Hcl 10 Mg Capsule PO 20 mg BID SHARATH Administration Diltiazem HCl 240 mg 09/27/24 09:00 09/28/24 09:03 Diltiazem Hcl Cd 240 Mg Cap.24hr PO 240 mg DAILY SHARATH Administration Docusate Sodium 100 mg 09/27/24 09:00 09/28/24 17:16 Docusate Sodium 100 Mg Capsule PO 100 mg QID SHARATH Administration Duloxetine HCl 90 mg 09/27/24 09:00 09/28/24 09:04 Duloxetine Hcl 30 Mg Capsule.Dr PO 90 mg DAILY SHARATH Administration Ezetimibe 10 mg 09/27/24 21:00 09/27/24 20:17 Ezetimibe 10 Mg Tablet PO 10 mg HS SHARATH Administration Gabapentin 300 mg 09/27/24 12:00 09/28/24 11:15 Gabapentin 300 Mg Capsule PO 300 mg DAILY@1200 SHARATH Administration Gabapentin 300 mg 09/27/24 09:00 09/28/24 09:03 Gabapentin 300 Mg Capsule PO 300 mg QAM SHARATH Administration Gabapentin 600 mg 09/27/24 21:00 09/27/24 20:17 Gabapentin 300 Mg Capsule PO 600 mg HS SHARATH Administration Hydroxychloroquine Sulfate 200 mg 09/27/24 09:00 09/28/24 09:03 Hydroxychloroquine Sulfate 200 Mg Tablet PO 200 mg DAILY SHARATH Administration Ibuprofen 400 mg 09/28/24 05:30 09/28/24 05:46 Ibuprofen 400 Mg Tablet PO 400 mg Q6H PRN Administration Pain Rated 1-3 Levothyroxine Sodium 50 mcg 09/27/24 06:30 09/28/24 05:12 Levothyroxine Sodium 50 Mcg Tablet PO 50 mcg DAILY@0630 SHARATH Administration Lidocaine 1 patch 09/27/24 14:10 09/28/24 09:04 Lidocaine 5% Patch TRANSDERM 1 patch DAILY SHARATH Administration Loratadine 10 mg 09/27/24 09:00 09/28/24 09:03 Loratadine 10 Mg Tablet PO 10 mg DAILY SHARATH Administration Metoprolol Succinate 50 mg 09/27/24 09:00 09/28/24 09:02 Metoprolol Succinate Ext Rel 50 Mg Tabcr PO 50 mg DAILY SHARATH Administration Multivitamins/Calcium 1 tablet 09/27/24 12:00 09/28/24 11:15 Therapeutic Multivitamins/Minerals Tab (*Bkc) PO 1 tablet DAILY@1200 SHARATH Administration Non-Formulary Medication 500 mg 09/27/24 09:00 Krill Oil PO 10/27/24 08:59 BID [facility] Pantoprazole Sodium 40 mg 09/27/24 09:00 09/28/24 09:02 Pantoprazole 40 Mg Tablet PO 40 mg QAM SHARATH Administration Pentoxifylline 400 mg 09/27/24 09:00 09/28/24 17:16 Pentoxifylline 400 Mg Tabcr PO 400 mg TID SHARATH Administration Rivaroxaban 20 mg 09/27/24 18:00 09/28/24 17:16 Rivaroxaban 20 Mg Tablet PO 20 mg QPM SHARATH Administration Fluticasone/Salmeterol 2 puff 09/27/24 08:00 09/28/24 08:56 Fluticasone/Salmeterol 115-21 Mcg Inhaler 1 Puff INHALATION 2 puff Q12HRT SHARATH Administration Topiramate 25 mg 09/27/24 13:35 09/28/24 09:03 Topiramate 25 Mg Tablet PO 25 mg QAM SHARATH Administration Topiramate 50 mg 09/27/24 21:00 09/27/24 20:17 Topiramate 25 Mg Tablet PO 50 mg HS SHARATH Administration Radiology Results: ITS Impressions Chest X-Ray 09/26/24 10:30 IMPRESSION: 1. Cardiomegaly. Head CT 09/26/24 10:55 IMPRESSION: 1. 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 Head/Neck CTA 09/26/24 21:06 IMPRESSION: 1. 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 2. No aneurysm or significant intracranial arterial stenosis. 3. 0% stenosis of the proximal right internal carotid artery relative to normal distal artery lumen diameter (NASCET criteria). 4. 38% stenosis of the proximal left internal carotid artery relative to normal distal artery lumen diameter. Brain MRI 09/27/24 11:03 IMPRESSION: 1. Old infarcts involving the cerebellum, left occipital lobe, right insula, and right frontal lobe. Lumbar Spine X-Ray 09/27/24 11:12 IMPRESSION: 1. Mild lumbar spondylosis. Lumbar Spine MRI 09/28/24 06:44 Impression: Facet arthropathy and lumbar spine, as above, but no spinal canal stenosis or neural foraminal narrowing. No disc bulge or herniation. 4 mm anterolisthesis of L4 over L5. Mild syrinx of the distal thoracic spinal cord, as detailed above.
[2024-09-28] MEDS: ARIPiprazole 5 MG TABLET PO (21:24)
[2024-09-28] MEDS: GABAPENTIN 300 MG CAPSULE 600 MG PO (21:24)
[2024-09-28] MEDS: TOPIRAMATE 25 MG TABLET 50 MG PO (21:25)
[2024-09-28] MEDS: EZETIMIBE 10 MG TABLET PO (21:25)
[2024-09-28] MEDS: ATORVASTATIN 40 MG TABLET PO (21:25)
[2024-09-29] VITALS (8 sets, daily range): BP systolic 101–111; BP diastolic 42–59; PULSE 68–827; RESP 16–18; TEMP 36.8–37.1; O2SAT 98
[2024-09-29] MEDS: LEVOTHYROXINE SODIUM 50 MCG TABLET PO (05:00)
[2024-09-29] MEDS: IBUPROFEN 400 MG TABLET PO ×2 (05:00→11:52)
[2024-09-29] MEDS: FLUTICASONE/SALMETEROL 115-21 MCG INHALER 1 PUFF 2 PUFF INHALATION (09:11)
[2024-09-29] MEDS: DULoxetine HCL 30 MG CAPSULE.DR 90 MG PO (09:22)
[2024-09-29] MEDS: TOPIRAMATE 25 MG TABLET PO (09:23)
[2024-09-29] MEDS: DOCUSATE SODIUM 100 MG CAPSULE PO ×2 (09:23→12:32)
[2024-09-29] MEDS: dilTIAZem HCL CD 240 MG CAP.24HR PO (09:23)
[2024-09-29] MEDS: PENTOXIFYLLINE 400 MG TABCR PO ×2 (09:23→12:32)
[2024-09-29] MEDS: METOPROLOL SUCCINATE EXT REL 50 MG TABCR PO (09:23)
[2024-09-29] MEDS: LORATADINE 10 MG TABLET PO (09:23)
[2024-09-29] MEDS: GABAPENTIN 300 MG CAPSULE PO ×2 (09:23→11:53)
[2024-09-29] MEDS: DICYCLOMINE HCL 10 MG CAPSULE 20 MG PO (09:23)
[2024-09-29] MEDS: LIDOCAINE 5% PATCH 1 PATCH TRANSDERM (09:24)
[2024-09-29] MEDS: HYDROXYCHLOROQUINE SULFATE 200 MG TABLET PO (09:24)
[2024-09-29] MEDS: PANTOPRAZOLE 40 MG TABLET PO (09:24)
--- NOTE | 2024-09-29 10:36 | WPDNEUROSGCN ---
Assessment and Plan Assessment and plan (1) Lumbar spondylosis: Code(s): M47.816 - Spondylosis without myelopathy or radiculopathy, lumbar region Status: Acute (2) Spondylolisthesis, lumbar region: Code(s): M43.16 - Spondylolisthesis, lumbar region Status: Acute (3) Syrinx of spinal cord: Code(s): G95.0 - Syringomyelia and syringobulbia Status: Acute Assessment and Plan: Roxana is a 74-year-old female with right-sided weakness and right lower extremity and back pain which is episodic. Her MRI is reassuring, for the most part. The significance of the syrinx is unknown but it is not a large syrinx. She does not report bowel or bladder difficulty that is new. I do not believe she has tethered cord given the terminus of spinal cord the the normal position and the presence of right upper extremity symptoms. I see no neurologic compression in the lumbar spine. The spondylolisthesis could be investigated further with flexion and extension views of the lumbar spine which I will order. If there is a dynamic component to the listhesis then perhaps that could cause episodic back pain which is positional or activity related. Otherwise I have no surgical intervention to offer at this point. Consult date: 09/29/24 Reason for consult: Right-sided weakness, back pain, leg pain HPI: Roxana Nieto is a 74 year old female was admitted to the hospital after a rapid response was called while she was getting an ultrasound because she developed right-sided weakness. This seems to involve mainly the leg but perhaps the arm as well, at least by report. She states that she has had weakness in that leg in the past in an episodic way. She notes about a 6 month history of pain in her back with occasional radiation into the right lower extremity. This seems to be episodic and activity or position related. The discomfort extends all the way down to her toes. She states that she currently has tingling in the toes except the big toe. She has been ambulatory since these events. She does not report new bowel or bladder difficulty. At my request an MRI of the lumbar spine was performed which is available for my review. She notes shaking of the right lower extremity when she tries to lift it or use it. She notes generalized but not specific muscle group weakness. Review of Systems Review of Systems: Patient denies shortness of breath, cough, fever, chills, nausea, vomiting, weight loss, weight gain, chest pain, dysuria. She has back and leg pain and weakness as described above. Review of systems otherwise negative on 12 systems except as noted elsewhere in this report. [facility] Past Medical History Medical History (Updated 09/29/24 @ 10:43 by Jose Lisa MD) Bilateral occipital neuralgia Migraine syndrome TIA (transient ischemic attack) Cerebral infarction MCI (mild cognitive impairment) Failed total left knee replacement T2DM (type 2 diabetes mellitus) Neuropathy Hypothyroidism Mixed connective tissue disease Polyarteritis nodosa HLD (hyperlipidemia) Hypertension PAF (paroxysmal atrial fibrillation) Irritable bowel syndrome Stroke (~2021) Migraine Arthritis Anxiety Surgical History Surgical History History of carpal tunnel surgery H/O decompression of ulnar nerve Hx of cholecystectomy H/O: hysterectomy Family History Family History Father Diabetes mellitus Hypertension Anxiety Depression Mother Depression Hypertension Anxiety Diabetes mellitus Sibling Alcoholism Cancer Cerebrovascular accident Daughter Breast cancer Hypertension Diabetes mellitus Social History Social History Smoking status: Former smoker Second hand tobacco smoke exposure: No Smoking end date: 10/21/98 Alcohol intake: current Drinks per week: 1 Substance use: never Substance use type: does not use Do You Feel Safe in your Home?: Yes Lack of Transportation: No Lack of Food: Never True Current Housing: I Have Housing Concerned About Future Housing: No Difficulty Paying Gas/Electric Bills: No Difficulty Paying for Meds: No Currently Unemployed: No Education: Bachelor's Degree Difficulty w/ Childcare or Family Care: No Occupation/Education: retired Gender identity (if verbalized by the patient): Female Sexual Orientation (if Verbalized by the Patient): Straight or Heterosexual Spiritual care concerns: No Agree to blood products: No Meds Home Medications and Allergies Home Medications ?Medication ?Instructions ?Recorded ?Confirmed ?Type hydroxychloroquine 200 mg tablet 200 mg PO DAILY 12/24/23 09/26/24 History pentoxifylline 400 mg 400 mg PO TID 12/24/23 09/26/24 History tablet,extended release rivaroxaban 20 mg tablet (Xarelto) 20 mg PO QPM 12/24/23 09/26/24 History duloxetine 30 mg capsule,delayed 90 mg (3 x 30 mg) PO DAILY #270 04/30/24 09/26/24 Rx release caps krill oil 500 mg capsule 500 mg PO BID 06/24/24 09/26/24 History loratadine 10 mg tablet (Allergy 10 mg PO DAILY 06/24/24 09/26/24 History Relief (loratadine)) [id number] 8 mg-folic 400 1 tablet PO DAILY 06/24/24 09/26/24 History mcg-K 50 mcg-lutein 300 mcg tablet (Centrum Silver Women) metoprolol succinate 50 mg 50 mg PO DAILY #90 tabs 06/28/24 09/26/24 Rx tablet,extended release 24 hr levothyroxine 50 mcg tablet 50 mcg PO DAILY #90 tabs 06/30/24 09/26/24 Rx albuterol sulfate 90 mcg/actuation 1 puff inhalation Q4H PRN 07/09/24 09/26/24 Rx aerosol inhaler shortness of breath or wheezing 90 days #3 device budesonide-formoterol HFA 160 2 puff inhalation Q12H 90 days #3 07/09/24 09/26/24 Rx mcg-4.5 mcg/actuation aerosol device inhaler (Symbicort) omeprazole 20 mg capsule,delayed 20 mg PO DAILY #90 caps 08/06/24 09/26/24 Rx release diltiazem HCl 240 mg 240 mg PO DAILY #90 caps 08/24/24 09/26/24 Rx capsule,extended release 24 hr aripiprazole 5 mg tablet (Abilify) 5 mg PO QHS #30 tabs 09/21/24 09/26/24 Rx dicyclomine 20 mg tablet 20 mg PO BID #180 tabs 09/24/24 09/26/24 Rx atorvastatin 40 mg tablet 40 mg PO HS 09/26/24 09/26/24 History docusate sodium 100 mg capsule 100 mg PO QID 09/26/24 09/26/24 History (Colace) ezetimibe 10 mg tablet (Zetia) 10 mg PO HS 09/26/24 09/26/24 History gabapentin 300 mg capsule 300 mg PO QAM 09/26/24 09/26/24 History gabapentin 300 mg capsule 600 mg PO HS 09/26/24 09/26/24 History gabapentin 300 mg tablet 300 mg PO 1200 09/26/24 09/26/24 History topiramate 25 mg capsule,extended 25 mg PO QAM 09/26/24 09/26/24 History release 24 hr topiramate 25 mg tablet 50 mg PO HS 09/26/24 09/26/24 History Allergies Allergy/AdvReac Type Severity Reaction Status Date / Time latex Allergy Severe Itching Verified 08/13/24 14:32 Sulfa (Sulfonamide Allergy Severe Rash Verified 08/13/24 14:32 Antibiotics) acetaminophen (From [facility]) AdvReac Severe Hallucinati Verified 08/13/24 14:32 ng hydrocodone (From [facility]) AdvReac Severe Hallucinati Verified 08/13/24 14:32 ng hydromorphone (From Dilaud[facility]) AdvReac Severe Hallucinati Verified 08/13/24 14:32 ng kiwi Allergy Severe Swelling Uncoded 09/26/24 21:25 of Lip/Tongue/Throat Vital Signs Vital Signs - 24 hr 09/28/24 12:00 09/28/24 14:00 09/28/24 16:04 Temperature 97.7 F Pulse Rate 84 82 69 Respiratory Rate 14 Blood Pressure 123/68 Pulse Oximetry 97 Oxygen Delivery 09/28/24 19:36 09/28/24 19:36 09/28/24 20:00 Temperature Pulse Rate 77 Respiratory Rate 18 Blood Pressure Pulse Oximetry 95 Oxygen Delivery Room Air Room Air 09/28/24 20:00 09/28/24 20:59 09/29/24 00:00 Temperature 98.3 F Pulse Rate 80 75 82 Respiratory Rate 18 Blood Pressure 96/49 L Pulse Oximetry 95 Oxygen Delivery 09/29/24 04:00 09/29/24 06:00 09/29/24 08:03 Temperature 98.3 F Pulse Rate 827 H 68 75 Respiratory Rate 18 Blood Pressure 111/59 L Pulse Oximetry 98 Oxygen Delivery 09/29/24 09:23 09/29/24 09:26 Temperature Pulse Rate 83 Respiratory Rate 18 Blood Pressure Pulse Oximetry 98 Oxygen Delivery Room Air Exam Narrative: Patient is a normal-appearing, normally developed elderly female supine in the hospital bed in no acute distress. She is awake, alert, oriented, with good fund of knowledge, recall events and fluent speech. Her face is symmetrical, tongue is midline, pupils are equal reactive to light, extraocular movements are intact, her palate elevates symmetrically, her hearing is grossly intact bilaterally. There is no drift, dysmetria or dyspraxia the upper extremities. Abdomen is nondistended Regular rate and rhythm Breathing is nonlabored Skin turgor and color normal. . Gait, Station and transfers were not tested. Strength appeared to be normal the bilateral lower extremities to direct confrontation. However, she did not lift her right leg straight at the hip in the supine position as vigorously she did on the right and there was shaking of the leg when she did so. Otherwise, strength in the knee extensors and flexors, and the dorsiflexors and plantar flexors appeared to be symmetrical and strong. Sensation is intact to light touch in the lower extremities throughout. Deep tendon reflexes were difficult to elicit at the knees or ankles bilaterally. There was no clonus. There was no Trejo's. Review of studies: MRI of the lumbar spine was personally reviewed by me and demonstrates a syrinx of the distal spinal cord without edema or mass is noted in this noncontrast study. The conus seems to terminate at or above L1-2. There is very slight listhesis at L4-5. There is no central canal or neural foraminal narrowing or neurologic compression noted at any level. Results Labs 09/27/24 05:42 09/27/24 05:42
[2024-09-29] MEDS: THERAPEUTIC MULTIVITAMINS/MINERALS TAB (*BKC) 1 TABLET PO (11:53)
--- NOTE | 2024-09-29 13:18 | PM.DS ---
DS: Admitting Diagnosis Discharge Date 09/29 Admitting Diagnosis numbness/leg pain DS: Discharge Diagnosis Discharge Diagnosis (1) Right leg weakness: Code(s): R29.898 - Other symptoms and signs involving the musculoskeletal system Status: Acute (2) T2DM (type 2 diabetes mellitus): Qualifiers: Diabetes mellitus penitentiary insulin use: unspecified exterminator helper termite insulin use status Diabetes mellitus complication status: without complication Qualified Code(s): E11.9 - Type 2 diabetes mellitus without complications Code(s): E11.9 - Type 2 diabetes mellitus without complications Status: Resolved (3) Hypothyroidism: Qualifiers: Hypothyroidism type: other Qualified Code(s): E03.8 - Other specified hypothyroidism Code(s): E03.9 - Hypothyroidism, unspecified Status: Chronic (4) Hypertension: Qualifiers: Hypertension type: unspecified Qualified Code(s): I10 - Essential (primary) hypertension Code(s): I10 - Essential (primary) hypertension Status: Chronic (5) Obstructive sleep apnea: Code(s): G47.33 - Obstructive sleep apnea (adult) (pediatric) Status: Chronic (6) Fall: Code(s): W19.XXXA - Unspecified fall, initial encounter Status: Acute (7) Compression fracture of T11 vertebra: Code(s): S22.080A - Wedge compression fracture of T11-T12 vertebra, initial encounter for closed fracture Status: Acute DS: Summary Hospital Course Hospital Course: Rt lower extremity weakness 74 y/o F presents here with right lower extremity weakness with PMH of CVA, hyperlipidemia, esophageal stricture, hypertension, hypothyroidism, IBS, persistent AFib, sleep apnea (doesnot wear CPAP) and diabetes type 2 (resolved, not on medications in A1c 5.7% in July of 2024). The patient presented here via rapid response for further evaluation of right lower extremity weakness. The patient was here at [facility] for an ultrasound of her carotid arteries. Daughter noted that she was dragging her right lower extremity around 9:45-9:50 a.m. She has a history of weakness in this same extremity due to unknown reasons, has low back pain with hx of shooting pains in her right leg with last occurrence was Tuesday 09/25. States the pain was so excruciating that she felt like she would fall. Daughter also noted that the right leg and right arm had a tremor which she reports is new, discovered at same time as her change in gait. Last known well was around 9:20 a.m. She denies facial droop, dysphagia, dysarthria, right upper extremity weakness, vision changes, or dizziness. +mild headache when she arriver here for the US described as unilateral, behind her right eye, dull, poking sensation, and with later radiation into her posterior neck on the left and above her shoulder blades on the left. Patient also reported some transient tongue heaviness with some difficulty forming words (also felt swollen) and daughter also concerned about her left eye was slightly more droopy. Eyelid drooping not appreciated, tongue normal size and no numbness/heaviness present now. In ED: No leukocytosis, no anemia, INR 1.7, creatinine 1.2 and GFR 44 (previously 1.4 and GFR 40 on 08/03/2024), UA was turbid with trace leuks. CXR - cardiomegaly. Head CT - old infarcts involving the left cerebellum, left occipital lobe, right insula, and right frontal lobe. CTA of the head/neck read by stat reads, which showed no acute findings per ED provider. 09/27- MRI this am. pt reports moving here to stay with her daughter from [place] 1 year ago or so. She reports falling- had total of 5-6 falls in the last 6 months. Her back pain started around the times she was falling a lot. She was never evaluated or checked out with imaging after falls. Several issues were addressed: # Rt leg weakness New deficits of right lower extremity weakness starting discovered around 9:45 a.m. - not candidate for thrombolytics, on Xarelto - not candidate for thrombectomy, no LVO seen on CTA - CXR: 1. Cardiomegaly - head CT: 1. 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 - CTA head/neck: 1. 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 2. No aneurysm or significant intracranial arterial stenosis. 3. 0% stenosis of the proximal right internal carotid artery relative to normal distal artery lumen diameter (NASCET criteria). 4. 38% stenosis of the proximal left internal carotid artery relative to normal distal artery lumen diameter. - neurology consulted- no acute interventions - brain MRI - echo w/Bubble ordered - XR lumbar spine to rule out ortho spine etiology for right lower extremity weakness- - neuro checks Q4 - PT/OT to eval and treat - add lipid panel, A1C 5.7% on 08/03/2024 - fall precautions - continue Atorvastatin 40 mg PO - on Xarelto, continue - DDx: orthospine etiology vs CVA vs TIA Orthospine saw her: Roxana is a 74-year-old female with right-sided weakness and right lower extremity and back pain which is episodic. Her MRI is reassuring, for the most part. The significance of the syrinx is unknown but it is not a large syrinx. She does not report bowel or bladder difficulty that is new. I do not believe she has tethered cord given the terminus of spinal cord the the normal position and the presence of right upper extremity symptoms. I see no neurologic compression in the lumbar spine. The spondylolisthesis could be investigated further with flexion and extension views of the lumbar spine which I will order. If there is a dynamic component to the listhesis then perhaps that could cause episodic back pain which is positional or activity related. Otherwise I have no surgical intervention to offer at this point. Lumbar spine xray completed: No acute osseous abnormality lumbar spine. Anterolisthesis at the level of L4-L5. She can f/u with neurosurgery as outpt for further workup if needed- that can be arranged per her PCP. Status at Discharge Functional status at discharge: uses cane/walker Overall status at discharge: patient is progressing back to baseline Time Spent with Patient Time attestation: Total time spent providing and/or coordinating discharge services: Time spent: Greater than 30 minutes Exam Narrative: right leg weakness with lift some bouncing without hitting bed/tremor from exertion of holding up, pushes equal, no other deficits. heart and lungs fine. Const: General: comfortable and no acute distress Other: , female, nontoxic appearance, elderly HENMT: Face/Nose/Sinus: Normal nares present Mouth: Yes moist mucous membranes Eyes: General: appearance normal, both eyes and all related structures Sclera: sclerae normal Pupils: Equal, round and reactive pupils present EOM: EOMs intact bilaterally Other: No nystagmus or gaze deviation noted. Resp: Effort & Inspection: normal respiratory effort Auscultation: clear to auscultation bilaterally Cardio: Rate: regular rate Rhythm: regular rhythm Other: S1-S2 present without murmur, rub, ectopy GI: Other: Abdomen soft, nondistended, nontender. Normoactive bowel sounds. Skin: General skin exam: normal color and no rashes or lesions noted Wounds: no wounds Neuro: Cranial nerves: Yes Equal, round and reactive pupils present Speech: normal speech Sensory Exam: normal sensation Other: No facial droop or dysarthria. No issues with extinction. No numbness. Pedal pushes equal and strong. Bilateral upper extremity collateral specialist equal and strong. No drift noted to the left lower extremity. Right leg weakness with lift some bouncing without hitting bed and fine tremor noted from exertion of holding up. A&O x4. Extrem: General: normal to inspection Psych: Mental Status: mental status grossly normal Affect: normal affect Other: Good insight and judgment, pleasant DS: Data Data Completed and Pending Completed studies during hospitalization: carotid doppler, lumbar xrY, BRAIN MRI Discharge Plan Discharge Attending physician on discharge: Gordon Fields Consulting providers: Tushar Del Valle; Jose Lisa Discharging Clinician: Corinne Vega Activity: may shower Diet: as tolerated and heart healthy Discharge Instructions: Neurosurgery saw you and ordered lumbar xray which showed: No acute osseous abnormality lumbar spine. Mild lumbar spondylosis. YOu do have osteoarthritis which you are aware. There is a chronic compression fracture of T11. Neurosurgery didnot think any interventions were needed- it can be treated with supportive measures: rest, gentle exercises, stretching, if needed physical therapy. Participate in exercises that doensot cause a lot of pain- like water aerobics. You can f/u with neurology as an outpt for possible Botox injections for your headaches. Patient Instructions: Safe Use of Anticoagulants (GEN) Patient Language: Montenegrin Discharge Medications: Continued duloxetine 30 mg capsule,delayed release(DR/EC) 90 mg PO DAILY Qty: 270 1RF loratadine [Allergy Relief (loratadine)] 10 mg tablet 10 mg PO DAILY krill oil 500 mg capsule 500 mg PO BID Rx Instructions: morning and noon Centrum Silver Women 8 mg iron-400 mcg-50 mcg tablet 1 tablet PO DAILY pentoxifylline 400 mg tablet extended release 400 mg PO TID Rx Instructions: must administer with a meal/food Xarelto 20 mg tablet 20 mg PO QPM Rx Instructions: must administer with evening meal hydroxychloroquine 200 mg tablet 200 mg PO DAILY budesonide-formoterol [Symbicort] 160-4.5 mcg/actuation HFA aerosol inhaler 2 puff inhalation Q12H 90 Days Qty: 3 1RF albuterol sulfate 90 mcg/actuation HFA aerosol inhaler 1 puff inhalation Q4H PRN (Reason: shortness of breath or wheezing) 90 Days Qty: 3 1RF topiramate 25 mg tablet 50 mg PO HS docusate sodium [Colace] 100 mg Capsule 100 mg PO QID gabapentin 300 mg capsule 600 mg PO HS gabapentin 300 mg Tablet 300 mg PO 1200 atorvastatin 40 mg tablet 40 mg PO HS gabapentin 300 mg capsule 300 mg PO QAM ezetimibe [Zetia] 10 mg tablet 10 mg PO HS topiramate 25 mg capsule,extended release 24hr 25 mg PO QAM metoprolol succinate 50 mg tablet extended release 24 hr 50 mg PO DAILY Qty: 90 1RF levothyroxine 50 mcg tablet 50 mcg PO DAILY Qty: 90 3RF omeprazole 20 mg capsule,delayed release(DR/EC) 20 mg PO DAILY Qty: 90 3RF diltiazem HCl 240 mg capsule,extended release 24hr 240 mg PO DAILY Qty: 90 3RF aripiprazole [Abilify] 5 mg tablet 5 mg PO QHS Qty: 30 2RF dicyclomine 20 mg tablet 20 mg PO BID Qty: 180 0RF Date of admission: 09/26/24 16:49 Primary Care Provider: Angelica Rodriguez Admitting Provider: Bernard Sevilla Attending physician on admission: Bernard Sevilla Condition: Stable Quality VTE Prophylaxis VTE prophylaxis: pharmacologic ordered Hospitalist MIPS Heart Failure (Exclusion) Patient has history of Heart Transplant or Left Ventricular Assistive Device?: No IF YES, STOP HERE Heart Failure (Qualifier) Patient has current or prior documentation of LVEF less than or equal to 40%, or mod/servere depressed LVSF?: No IF NO, STOP HERE
[2024-09-29] MEDS: INFLUENZA VACCINE HIGH DOSE (>64) 180 MCG/0.5 ML SYRINGE IM (14:24)
== END 2024-09-29 15:40 | disposition home or self-care (01) ==
LOC: ANHED 11:07 → ANH2MED 19:23
PROVIDERS: Student in an Organized Health Care Education/Training Program; Admitting Provider General Practice; Emergency Provider Emergency Medicine; PCP Family Medicine; Visit Provider Internal Medicine
DX: S22.080A Wedge compression fracture of T11-T12 vertebra, initial encounter for closed fracture (principal); M47.816 Spondylosis without myelopathy or radiculopathy, lumbar region; M43.16 Spondylolisthesis, lumbar region; G95.0 Syringomyelia and syringobulbia; W19.XXXA Unspecified fall, initial encounter; R53.1 Weakness; M54.81 Occipital neuralgia; I10 Essential (primary) hypertension; G47.33 Obstructive sleep apnea (adult) (pediatric); I48.19 Other persistent atrial fibrillation; E78.5 Hyperlipidemia, unspecified; E03.9 Hypothyroidism, unspecified; F41.9 Anxiety disorder, unspecified; Z86.73 Personal history of transient ischemic attack (TIA), and cerebral infarction without residual deficits; Z87.891 Personal history of nicotine dependence; Z79.51 Long term (current) use of inhaled steroids; Z23 Encounter for immunization; Z79.01 Long term (current) use of anticoagulants
CPT/HCPCS: 36415; 70450; 70496; 70498; 70551; 71045; 72100; 72120; 72148; 80048; 80053; 80061; 81001; 82948; 83880; 84484; 85025; 85610; 85730; 90471; 90662; 93005; 93880; 94640; 96361; 96374; 96375; 97161; 97165; 99285; A9270; C8929; G0008; G0378; J1885; J7030; Q9957; Q9967

== ENCOUNTER 2024-10-17 12:41 | Outpatient (CLI) | payer MEDICARE, SELFPAY ==
--- NOTE | ~2024-10-17 | XR_ITS ---
XR knee RT min 4V Ordering provider: Angelica Rodriguez MD History: . M25.561 - Pain in right knee NON INJ POPPING INSTABILITY . Comparison: None. FINDINGS: BONES: No acute fracture or dislocation. JOINT SPACES: Severe narrowing of the lateral compartment. Moderate narrowing of the medial compartme nt. Marginal osteophytes in the patella with narrowing of the patellofemoral joint. SOFT TISSUES: Normal. IMPRESSION: No acute osseous abnormality right knee. Severe osteoarthritic changes. Reviewed, dictated and finalized at location A. ER INSTALLER
== END 2024-10-17 12:42 | disposition home or self-care (01) ==
PROVIDERS: PCP Family Medicine; Visit Provider Family Medicine
DX: M17.11 Unilateral primary osteoarthritis, right knee (principal)
CPT/HCPCS: 73564

== ENCOUNTER 2024-10-22 08:47 | Outpatient (CLI) | payer MEDICARE, SELFPAY ==
[2024-10-22 09:38] LABS: Alanine Aminotransferase 48 U/L (6-35); Alkaline Phosphatase 67 U/L (38-126); Anion Gap 1 mmol/L (4-12); Aspartate Amino Transferase 55 U/L (14-36); Bilirubin,Total 0.6 mg/dL (0.2-1.3); Blood Urea Nitrogen 28 mg/dL (7-17); Calcium 10.8 mg/dL (8.4-10.2); Carbon Dioxide 32 mmol/L (22-30); Chloride 105 mmol/L (98-107); Estimated Glomerular Filt Rate 44; Glucose 122 mg/dL (65-110); Potassium 4.1 mmol/L (3.4-5.0); Sodium 138 mmol/L (137-145)
== END 2024-10-22 08:48 | disposition home or self-care (01) ==
PROVIDERS: PCP Family Medicine; Visit Provider Family Medicine
DX: I10 Essential (primary) hypertension (principal); E11.9 Type 2 diabetes mellitus without complications
CPT/HCPCS: 36415; 80053

== ENCOUNTER 2025-01-20 08:07 | Outpatient (CLI) | payer MEDICARE, SELFPAY ==
--- NOTE | ~2025-01-20 | XR_ITS ---
MODIFIED ESOPHAGRAM HISTORY: Dysphagia. TECHNIQUE: Modified barium esophagram was performed on 01/20/2025. I administered fluoroscopy and perfo rmed the exam with speech pathologist. Patient was seated for lateral fluoroscopic imaging for inges tion of thin liquids, pudding, solids and quantified amounts, followed by thin liquids in uncontrolle d amounts. This was recorded on tape. A single fluoroscopic spot image was also recorded. The DAP for this procedure was 1.1 Gycm2. The amount of fluoroscopy time used during this procedure was 2.0 gurjit vicki. FINDINGS: Oral stage: Adequate function. Pharyngeal stage: There is flash laryngeal penetration without aspiration. After the swallow there is delayed relaxation of the pharyngeal contraction including delayed return of epiglottic inversion. Cervical/esophageal stage: Adequate function. IMPRESSION: Pharyngeal dysphagia with flash laryngeal penetration without aspiration and delayed rela xation differential contraction and return of epiglottic inversion after the swallow. Please correlat e with speech pathologist findings and specific feeding recommendations. Reviewed, dictated and finalized at location A. IMPRESSION: Pharyngeal dysphagia with flash laryngeal penetration without aspir ation and delayed relaxation differential contraction and return of epiglottic inversion after the swallow. Please correlate with speech pathologist findings and specific feeding recommendations.
--- OUTSIDE RECORDS SUMMARY | 2025-01-20 08:16 | XMS_ITS | Patient Health Record ---
Author Organization [facility] Address [address] [facility] [address] [place], [place] [id number] Reason For Referral No Information Plan Of Treatment No Information
--- OUTSIDE RECORDS SUMMARY | 2025-01-20 08:16 | XMS_ITS ---
[facility] Address [address] [place], [place] [id number] Care Team Providers Care Isotope Technician Name Role Phone ENOCH MATHEWS Unavailable [phone] REASON FOR VISIT *General care Encounters Encounter Location Date Provider Diagnosis [facility] [address] [place], [place] [id number] 11/20/2023 ENOCH MATHEWS Plan Of Treatment No Information Progress Notes * Roxana NIETODOB:1950 (74 yo F)Acc No.[id number]:11/20/2023 Progress Notes Patient: Roxana JHA Provider: Noel Mathews DPM :1950 A ge:73 Y S ex:Female Date:11/20/2023 Address:[address] [place] [id number] Subjective: * Chief Complaints: * 1 . *General care. * Medical History: Objective: * Vitals: Assessment: Plan: * Treatment: * Billing Information: * Visit Code: * Procedure Codes: * Electronic signature of ENOCH MATHEWS DPM on 01/20/2025 at 08:15 AM CDT Sign off status: Pending * Provider: Noel Mathews DPM Date: 0 11/20/2023 Generated for Jodi carney/Nav/Wendy on: 0 01/20/2025 08:15 AM CDT
--- NOTE | 2025-01-20 09:40 | REHSTMBS ---
Assessment and note entered by Cheryle Gusman, GENERAL EXPEDITOR Modified Barium Swallow Evaluation Feeding Type Recommended Oral Food Consistency Regular, Level 7 Liquid Consistency Thin (0) ST Clinical Summary The above pt was seen for an OP modified barium swallow evaluation due to complaints of food getting caught in her throat and occasional choking. Pt stated she has to masticate solids into a paste before swallowing otherwise she will choke. Duration for dysphagia per pt is for years . Pt appeared to have a slight decline in memory re her medical history, but was Ox4. Oral musculature was found to be intact; vocal quality was clear, and speech intelligibility 100% clear. The pt was seated for a lateral view and presented with 5cc thin liquids via a spoon, pudding consistency barium via a spoon, & crackers coated with barium pudding in controlled amounts via a spoon; she was also tested with thin liquids in uncontrolled amounts via a cup and a straw. The oral stages were within normal limits with no leakage, pocketing or residue. During the pharyngeal stage, flash penetration occurred with the thin liquids when via a cup and straw but it was shallow and quickly cleared without aspiration . After the swallow it appeared as though the pharynx was held briefly contracted for an extra second or two then released. During this time the epiglottis remained briefly inverted as well. This occurrence was essentially without effect on swallowing ability but may possibly be contributing to her symptoms. No residual, blockage, or aspiration was exhibited. Impression: functional swallow ability as described above Recommendation: regular diet with regular liquids; Questionable need for and an ENT consult.
== END 2025-01-20 08:08 | disposition home or self-care (01) ==
PROVIDERS: PCP Family Medicine; Visit Provider Nurse Practitioner Family
DX: R13.10 Dysphagia, unspecified (principal)
CPT/HCPCS: 92611

== ENCOUNTER 2025-02-15 09:48 | Outpatient (CLI) | payer MEDICARE, SELFPAY ==
[2025-02-15 10:42] LABS: Basophils Percent Auto 0.4 % (0.2-1.2); Eosinophils Absolute Auto 0.1 K/mm3 (0-0.3); Eosinophils Percent Auto 1.8 % (0-4.4); Hematocrit 37.3 % (37.0-47.0); Hemoglobin 11.4 g/dL (12.0-15.0); Immature Granulocyte Absolute 0.01 K/mm3 (0.00-0.031); Immature Granulocyte Percent A 0.2 % (0-0.5); Lymphocytes Absolute Auto 1.03 K/mm3 (0.9-3.2); Lymphocytes Percent Auto 22.8 % (18.3-44.2); Mean Corpuscular HGB Conc 30.6 g/dl (32-36); Mean Corpuscular Hemoglobin 28.1 pg (26-34); Mean Corpuscular Volume 91.9 fl (80-100); Mean Platelet Volume 10.7 fl (7.4-10.4); Monocytes Absolute Auto 0.2 K/mm3 (0.1-0.6); Monocytes Percent Auto 5.3 % (2.6-8.5); Neutrophils Absolute Auto 3.1 K/mm3 (1.3-6.7); Neutrophils Percent Auto 69.5 % (45.5-73.1); Platelet Count Result 191 k/mm3 (150-375); Red Blood Count 4.06 M/mm3 (4.2-5.4); Red Cell Distribution Width 14.9 % (11.5-14.5); White Blood Count 4.5 K/mm3 (4.5-10.0)
[2025-02-15 11:05] LABS: Alanine Aminotransferase 24 U/L (6-35); Albumin Level 3.8 g/dL (3.5-5.1); Alkaline Phosphatase 98 U/L (38-126); Anion Gap 7 mmol/L (4-12); Aspartate Amino Transferase 28 U/L (14-36); Bilirubin,Total 0.5 mg/dL (0.2-1.3); Blood Urea Nitrogen 23 mg/dL (7-17); Calcium 9.9 mg/dL (8.4-10.2); Carbon Dioxide 24 mmol/L (22-30); Chloride 103 mmol/L (98-107); Estimated Glomerular Filt Rate 59; Glucose 138 mg/dL (65-110); Potassium 3.7 mmol/L (3.4-5.0); Sodium 134 mmol/L (137-145)
[2025-02-15 11:24] LABS: Vitamin D 25 Hydroxy 44.9 ng/mL
== END 2025-02-15 09:49 | disposition home or self-care (01) ==
LOC: ANHLAB 09:49
PROVIDERS: PCP Family Medicine; Visit Provider Family Medicine
DX: E11.9 Type 2 diabetes mellitus without complications (principal); E03.9 Hypothyroidism, unspecified; E55.9 Vitamin D deficiency, unspecified; R53.83 Other fatigue
CPT/HCPCS: 36415; 80053; 82306; 83036; 83970; 84443; 85025

== ENCOUNTER 2025-04-14 13:21 | Outpatient (RCR) | payer MEDICARE, SELFPAY ==
--- NOTE | 2025-04-14 14:25 | OPREHPOC ---
Outpatient Therapy Plan of Care This is a Multidisciplinary Plan of Care that may contain components documented by all disciplines (PT, OT, and ST.)
--- NOTE | 2025-04-14 14:26 | STOPEVAL1 ---
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 The patient recently had a MBS study January 20, 2025 with results indicating a swallow function within normal limits. The patient reports a fairly persistent sticking sensation with meals She states she spends extra time masticating her food and that a frequent drinks seems to help. She further reports these symptoms began approximately 15 years ago. At that time they completed esophageal dilation in February of 2022 and that did appear to help. When asked if her present symptoms are similar to those experienced previously she stated yes and that they have just gradually become worse over the past few months. She has a new consult with a GI specialist in May 2025. Following her recent ENT consult she adjusted her omeprazole 20 mg from taking in the am to pm per the physician's suggestion and she states it has seemed to help with her heartburn. Per her recollection she has been on the same does of omeprazole for approximately 3-4 years since first taking the medication. Reported Pain Level Pain Score 0: Self Report Assessment ST Clinical Summary The patient is a 74 yr old female referred for a swallow evaluation. The patient recently had a MBS study January 20, 2025 with results indicating a swallow function within normal limits. The patient reports a fairly persistent sticking sensation with meals She states she spends extra time masticating her food and that a frequent drinks seems to help. She further reports these symptoms began approximately 15 years ago. At that time they completed esophageal dilation in February of 2022 and that did appear to help. When asked if her present symptoms are similar to those experienced previously she stated yes and that they have just gradually become worse over the past few months. She has a new consult with a GI specialist in May 2025. Following her recent ENT consult she adjusted her omeprazole 20 mg from taking in the am to pm per the physician's suggestion and she states it has seemed to help with her heartburn. Per her recollection she has been on the same does of omeprazole for approximately 3-4 years since first taking the medication. The patient was seen following a physician referral for a swallow evaluation. The patient was presented trials of thin liquid via a straw and solids (Diced peaches and cracker). Oral Stage: timely oral preparation and transit of the bolus without oral residual. Within normal limits. Pharyngeal stage: Swallow initiation was timely with good laryngeal elevation for all consistencies. No observed clinical signs of aspiration such as vocal quality change, coughing, or choking. No current history of pneumonia and most recent MBS viewed a relatively normal swallow . Recommendations: No speech services recommended at this time. However, may consider adjusting omeprazole dose. Patient reports some improvement with change in time of day it's taken and has been on the same dosage 1x daily (20mg) for sometime.) . Agree with GI consult consider it improved her symptoms previously and these reported symptoms are comparable. Plan of Care ST Services Indicated No Treatment Frequency and Evaluation only Duration These treatments will address the objective and functional deficits as defined above. The patient will be advanced safely and appropriately in order for the patient to progress towards his/her prior level of function. Additional exercises will be introduced and as well as a comprehensive home exercise program upon discharge, if needed, ?to ensure carryover of functional gains achieved in the clinic. This treatment plan has been reviewed and agreement upon by the patient.
== END 2025-07-13 23:59 | disposition home or self-care (01) ==
LOC: ANHST 13:21
PROVIDERS: PCP Family Medicine; Visit Provider Otolaryngology
DX: R13.14 Dysphagia, pharyngoesophageal phase (principal)
CPT/HCPCS: 92610

== ENCOUNTER 2025-04-17 11:13 | Outpatient (CLI) | payer MEDICARE, SELFPAY ==
--- NOTE | ~2025-04-17 | MM_ITS ---
EXAMINATION: MM screening deven BI w venus HISTORY: Screening mammogram, family history of breast cancer in her daughter. TECHNIQUE: Craniocaudal and mediolateral oblique 3-D tomosynthesis images were obtained and synthetic 2-D images were generated. CAD analysis was submitted and interpreted. COMPARISON: No prior mammogram is available for comparison at this institution. BREAST PARENCHYMAL COMPOSITION:Not Dense. There are scattered areas of fibroglandular density. FINDINGS: No suspicious mass, calcification, or architectural distortion are identified in either tali ast to suggest malignancy. There has been no suspicious interval change. IMPRESSION: No mammographic evidence of malignancy. Recommend routine screening mammography in one year. BI-RADS Category 1: Negative Reviewed, dictated and finalized at location .
== END 2025-04-17 11:14 | disposition home or self-care (01) ==
PROVIDERS: PCP Family Medicine; Visit Provider Family Medicine
DX: Z12.31 Encounter for screening mammogram for malignant neoplasm of breast (principal)
CPT/HCPCS: 77063; 77067

== ENCOUNTER 2025-07-02 13:30 | Emergency (ER) | payer MEDICARE, SELFPAY ==
[2025-07-02] VITALS (13 sets, daily range): BP systolic 104–138; BP diastolic 59–96; PULSE 66–107; RESP 11–20; TEMP 36.4–37.1; O2SAT 98–100
--- NOTE | ~2025-07-02 | CT_ITS ---
EXAMINATION: CT brain wo con DATE: 07/02/2025 15:45 INDICATION: Headaches. Weakness. TECHNIQUE: Computed tomography (CT) of the head was performed without intravenous contrast. Sagittal and coronal reconstructions were performed. The mA was adjusted according to patient size. Iterative reconstruction technique was employed. The dose-length product was 681.00 mGy-cm. COMPARISON: head CT dated 09/26/2024 FINDINGS: Unchanged small old infarcts in the right frontal lobe periventricular white matter, at the right insula and left occipital lobe. One of several small old bilateral cerebellar infarcts evident on prior MRI can be seen in the left cerebellar hemisphere, the remainder likely too small to be seen. No acute intracranial hemorrhage, acute infarction or abnormal extra axial fluid collection. Symmetric prominence of the sulci consistent with mild age- appropriate diffuse cerebral volume loss. Ventricles are normal and symmetric. No mass/mass effect. The orbits, paranasal sinuses and mastoid air cells are no rmal. IMPRESSION: 1. Unchanged small old infarcts in the cerebellum, left occipital lobe, right insula and right frontal lobe. No acute intracranial process. Reviewed, dictated and finalized at location A. IMPRESSION: 1. Unchanged small old infarcts in the cerebellum, left occipital lobe, right i nsula and right frontal lobe. No acute intracranial process.
--- NOTE | ~2025-07-02 | CT_ITS ---
Exam: CT abdomen and pelvis with contrast Clinical History: [Abdominal pain. Nausea. Diarrhea. Weakness. ] Comparison: [ None available] Technique: Multiple axial CT images of the abdomen and pelvis were obtained with IV contrast. Sagittal and coronal reformatted images were obtained. FINDINGS: Lung bases: [There are a few opacities in the lower lungs. ] Liver: [ No mass.] [ No intrahepatic biliary duct dilatation.] Gallbladder: Surgically absent. Common bile duct: [ Normal caliber.] [ No stones.] Spleen: [ Within normal limits.] Pancreas: [ No mass. No pancreatic fluid collection.] Adrenals: [ No masses.] Kidneys: [ No masses. No hydronephrosis.][ ] Lymph nodes: [ No adenopathy in the abdomen or pelvis.] Stomach, small bowel and colon: Thickening of the garcia of the cardia and body of the stomach. Thickening of the garcia of a few small bowel loops in the left abdomen. Peritoneum cavity: [ No mesenteric fat stranding or fluid.] Bladder: Concentric thickening of the garcia of the mildly distended bladder. Differential includes incomplete bladder wall distention or cystitis. Osseous structures: [ No acute fracture or destructive lesion.] [ Multilevel degenerative change in the visualized spine.] Bones appear osteopenic. Grade 1 anterolisthesis of L4 on L5. Abdominal aorta: [ No aneurysm.] Additional findings: [ None of significance.] IMPRESSION: 1. Thickening of the garcia of the cardia and body of the stomach. Differential includes incomplete stomach wall distention or gastritis. Other etiologies are possible. If of concern, consider an upper GI examination. 2. Concentric thickening of the garcia of the mildly distended bladder. Differential includes incomplete bladder wall distention or cystitis. 3. Thickening of the garcia of a few small bowel loops in the left abdomen. Differential includes incomplete bowel wall distention versus enteritis. Reviewed, dictated and finalized at location Q. IMPRESSION: 1. Thickening of the garcia of the cardia and body of the stomach. Differential includes incomplete stomach wall distention or gastritis. Other etiologies are possible. If of concern, consider an upper GI examination. 2. Concentric thickening of the garcia of the mildly distended bladder. Differen tial includes incomplete bladder wall distention or cystitis. 3. Thickening of the garcia of a few small bowel loops in the left abdomen. Diff erential includes incomplete bowel wall distention versus enteritis.
--- OUTSIDE RECORDS SUMMARY | 2025-07-02 12:20 | XMS_ITS | Encounter Summary ---
Author Organization [facility] Address [address] [place] [address] Phone Care Team Providers Care Page Technician Name Role Phone Provider, Unknown Primary Care Provider Unavaila ble Reason for Visit * Reason Comments Nausea Encounter Details Date Type Department Care Team (Latest Contact Info) Description 07/02/2025 12:20 PM CDT Urgent Care Visit [facility] [place] [address] [place] [address] Michelle Rubi APRN, OVEN PRESS TENDER [address] [place] [address] Dizziness (Primary Dx); Nausea and vomiting, unspecified vomiting type; Weakness Discharge Disposition: Discharged to home or Selfcare Social History Tobacco Use Types Packs/Day Years Used Date Smoking Tobacco: Former Cigarettes Smokeless Tobacco: Never Comments No Sex and Gender Information Value Date Recorded Sex Assigned at Not on file Legal Sex Female 12:04 PM CDT Gender Identity Not on file Sexual Orientation Not on file documented as of this encounter Last Filed Vital Signs Vital Sign Reading Time Taken Comments Blood Pressure 94/62 07/02/2025 12:30 PM CDT Pulse 72 07/02/2025 12:30 PM CDT Temperature 36.4 C (97.5 F) 07/02/2025 12:30 PM CDT Respiratory Rate 16 07/02/2025 12:30 PM CDT Oxygen Saturation 98% 07/02/2025 12:30 PM CDT Inhaled Oxygen Concentration - - Weight - - Height - - Body Mass Index - - documented in this encounter Patient Instructions * Patient Instructions* Michelle Rubi APRN, OVEN PRESS TENDER - 07/02/2025 12:20 PM CDT Go to the ER for further evaluation of your symptoms documented in this encounter Progress Notes * Judy Israel RN - 07/02/2025 12:20 PM CDT Roxana Nieto complains of 2 week history of intermittent headache, dizziness, nausea and decreased appetite She was vomiting but this symptom resolved this past Saturday. She did stated she has been worried about he results of her husbands biopsy. Nausea This is a new problem. The current episode started 1 to 4 weeks ago. The problem occurs intermittently. The problem has been unchanged. Associated symptoms include fatigue, headaches, nausea and weakness. Today's Review of Systems Constitutional: Positive for fatigue and malaise/fatigue. Gastrointestinal: Positive for nausea. Neurological: Positive for dizziness, weakness and headaches. * Michelle Rubi APRN, CNP - 07/02/2025 12:20 PM CDT HPI: Roxana Nieto is a 75 y.o. female in the prompt care today for nausea, vomiting, and diarrhea. She states she has one diarrheal stool a day. She has not vomited since Saturday. She states she has not been able to take her medications since last Saturday. She states that she gags when she tries take them. She reports a poor appetite. She reports fatigue. Her normal systolic blood is high 110's. Symptoms started 2 weeks ago Severity of symptoms is mild Symptoms have Not changed Patient is currently taking over the counter aleve for the symptoms. Smoker: No No pertinent Past, family, or social history was noted Problem List[1] ROS: Review of Systems Constitutional: Positive for chills. Negative for fever. HENT: Negative for congestion, ear pain, rhinorrhea, sinus pressure, sinus pain and sore throat. Respiratory: Negative for cough, shortness of breath and wheezing. Gastrointestinal: Positive for abdominal pain, diarrhea, nausea and vomiting. Genitourinary: Negative for dysuria, frequency and urgency. Musculoskeletal: Negative for myalgias. Neurological: Positive for dizziness and headaches. PE: BP 94/62 (BP Location: Right Arm, BP Position: Sitting, BP Cuff Size: Large) Pulse 72 Temp 97.5??F (36.4 ??C) (Temporal) Resp 16 SpO2 98% Physical Exam Vitals and nursing note reviewed. Constitutional: Appearance: She is normal weight. She is ill-appearing. HENT: Right Ear: Tympanic membrane, ear canal and external ear normal. Left Ear: Tympanic membrane, ear canal and external ear normal. Nose: Nose normal. Mouth/Throat: Mouth: Mucous membranes are dry. Pharynx: Oropharynx is clear. Eyes: Conjunctiva/sclera: Conjunctivae normal. Cardiovascular: Rate and Rhythm: Normal rate and regular rhythm. Pulses: Normal pulses. Heart sounds: Normal heart sounds. Pulmonary: Effort: Pulmonary effort is normal. No respiratory distress. Breath sounds: Normal breath sounds. Abdominal: General: Abdomen is flat. Bowel sounds are normal. There is no distension. Palpations: Abdomen is soft. Tenderness: There is no abdominal tenderness. There is no guarding. Musculoskeletal: Cervical back: Neck supple. Lymphadenopathy: Cervical: No cervical adenopathy. Skin: General: Skin is warm and dry. Comments: Poor turgor Neurological: Mental Status: She is alert. ASSESSMENT/PLAN: Diagnoses and all orders for this visit: Dizziness Nausea and vomiting, unspecified vomiting type Weakness Other orders - Xarelto 20 MG Tablet - topiramate (TOPAMAX) 25 MG Tablet - metoprolol Succinate (TOPROL-XL) 50 MG TABLET SR 24 HR - pentoxifylline (TRENtal) 400 MG Tablet Controlled Release - hydroxychloroquine (PLAQUENIL) 200 MG Tablet - ezetimibe (ZETIA) 10 MG Tablet - atorvastatin (LIPITOR) 40 MG Tablet - dilTIAZem (CARDIZEM CD) 120 MG CAPSULE SR 24 HR - gabapentin (NEURONTIN) 300 MG Capsule - omeprazole (PriLOSEC) 20 MG CAPSULE DELAYED RELEASE - DULoxetine (CYMBALTA) [address] Particles - levothyroxine (SYNTHROID) 50 MCG Tablet - potassium chloride (MICRO-K) 10 MEQ Capsule CR - furosemide (LASIX) 20 MG Tablet - lubiprostone (AMITIZA) 24 MCG Capsule - Ozempic, 0.25 or 0.5 MG/DOSE, 2 MG/3ML Solution Pen-injector - ARIPiprazole (ABILIFY) 5 MG Tablet; Take 5 mg by mouth daily. Patient Instructions Go to the ER for further evaluation of your symptoms Chief complaint and all history documented by ancillary staff were reviewed and verified, with additions or corrections, as appropriate. [1] There is no problem list on file for this patient. documented in this encounter Plan of Treatment Not on file documented as of this encounter Visit Diagnoses Diagnosis Dizziness- Primary Dizziness and giddiness Nausea and vomiting, unspecified vomiting type Weakness Other malaise and fatigue documented in this encounter Care Teams Page Technician Relationship Specialty Start Date End Date Provider, Unknown UNKNOWN PCP - General 07/02/25 documented as of this encounter
--- OUTSIDE RECORDS SUMMARY | 2025-07-02 12:20 | XMS_ITS | Encounter Summary ---
Author Organization [facility] Address [address] [place] [address] Phone Care Team Providers Care Pillow Filler Name Role Phone Provider, Unknown Primary Care Provider Unavaila ble Reason for Visit * Reason Comments Nausea Encounter Details Date Type Department Care Team (Latest Contact Info) Description 07/02/2025 12:20 PM CDT Urgent Care Visit [facility] [place] [address] [place] [address] Michelle Rubi APRN, CARPET REPAIRER [address] [place] [address] Dizziness (Primary Dx); Nausea and [...] Instructions * Patient Instructions* Michelle Rubi APRN, CARPET REPAIRER - 07/02/2025 12:20 PM CDT Go to [...] fatigue documented in this encounter Care Teams Pillow Filler Relationship Specialty Start Date End Date Provider, Unknown UNKNOWN PCP - General 07/02/25 documented as of this encounter
--- NOTE | 2025-07-02 13:57 | ECG_ITS ---
Test Date: 2025-07-02 14:18:23 Measurements Intervals [place] Rate: 92 P: 0 ID: 0 QRS: 49 QRSD: 77 T: 15 QT: 355 QTc: 439 Interpretive Statements ATRIAL FIBRILLATION LOW QRS VOLTAGE IN PRECORDIAL LEADS [QRS DEFLECTION < 1.0 mV IN CHEST LEADS] NONSPECIFIC T-WAVE ABNORMALITIES ABNORMAL RHYTHM ECG Compared to ECG 09/26/2024 10:01:40 NO SIGNIFICANT CHANGES Electronically Signed On 07-02-2025 15:47:37 CDT by Juan Manuel Reyez M.D.
--- OUTSIDE RECORDS SUMMARY | 2025-07-02 14:19 | XMS_ITS | Clinical Summary ---
Author Organization [facility] Address [address] [place] [phone] Phone Care Team Providers Care Impregnating Helper Name Role Phone Provider, Unknown Primary Care Provider Unavaila ble Allergies Active Allergy Reactions Criticality Noted Date Comments Hydromorphone Hallucinations 07/02/2025 Kiwi Extract Anaphylaxis 07/02/2025 Latex Itching 07/02/2025 Hydrocodone-Acetaminophen Hallucinations 2024 Sulfa Antibiotics Anaphylaxis 07/02/2025 Medications Xarelto 20 MG Tablet 05/13/2025 Active topiramate (TOPAMAX) 25 MG Tablet 06/07/2025 Active metoprolol Succinate (TOPROL-XL) 50 MG TABLET SR 24 HR 05/13/2025 Active pentoxifylline (TRENtal) 400 MG Tablet Controlled Release 05/13/2025 Active hydroxychloroqui ne (PLAQUENIL) 200 MG Tablet 05/13/2025 Activ e ezetimibe (ZETIA) 10 MG Tablet 05/13/2025 Active atorvastatin (LIPITOR) 40 MG Tablet 05/13/2025 Active dilTIAZem (CARDIZEM CD) 120 MG CAPSULE SR 24 HR 06/07/2025 Active gabapentin (NEURONTIN) 300 MG Capsule 03/30/2025 Active omeprazole (PriLOSEC) 20 MG CAPSULE DELAYED RELEASE 05/13/2025 Active DULoxetine (CYMBALTA) [address] Particles 04/04/2025 Active levothyroxine (SYNTHROID) 50 MCG Tablet 06/07/2025 Active potassium chloride (MICRO-K) 10 MEQ Capsule CR 05/13/2025 Active furosemide (LASIX) 20 MG Tablet 06/01/2025 Active lubiprostone (AMITIZA) 24 MCG Capsule 06/07/2025 Active Ozempic, 0.25 or 0.5 MG/DOSE, 2 MG/3ML Solution Pen-injector 06/07/2025 Active ARIPiprazole (ABILIFY) 5 MG Tablet Take 5 mg by mouth daily. Active Encounters Date Type Department Care Team Description 07/02/2025 12:20 PM CDT [facility] [address] [place] [address] Michelle Rubi, YELITZA, HOT STICK WORKER Dizziness (Primary Dx); Nausea and vomiting, unspecified vomiting type; Weakness Discharge Disposition: Discharged to home or Selfcare 07/02/2025 Travel from Last 3 Months Social History Tobacco Use Types Packs/Day Years Used Date Smoking Tobacco: Former Cigarettes Smokeless Tobacco: Never Comments No Sex and Gender Information Value Date Recorded Sex Assigned at Not on file Legal Sex Female 12:04 PM CDT Gender Identity Not on file Sexual Orientation Not on file Last Filed Vital Signs Vital Sign Reading Time Taken Comments Blood Pressure 94/62 07/02/2025 12:30 PM CDT Pulse 72 07/02/2025 12:30 PM CDT Temperature 36.4 C (97.5 F) 07/02/2025 12:30 PM CDT Respiratory Rate 16 07/02/2025 12:30 PM CDT Oxygen Saturation 98% 07/02/2025 12:30 PM CDT Inhaled Oxygen Concentration - - Weight - - Height - - Body Mass Index - - Plan of Treatment Health Maintenance Due Date Last Done Comments DEXA Bone Density 1950 Hepatitis C Virus (HCV) Screening 1950 Mammogram 1950 TdaP Immunization 1950 Cologuard 1997 Colonoscopy 1997 Colorectal Cancer Screening 1997 Immunochemical Fecal Occult Blood 1997 Pneumococcal Immunization (5 0+ years) (1 of 1 - PCV) 2002 Zoster Immunization (1 of 2) 2002 Influenza Immunization (#1) 2025 09/29/2024 SARS-COV-2 Immunization ( - 2024-25 season) 2025 Respiratory Syncytial Virus (RSV) Immunization (Adult) (1 - 1-dose 75+ series) 2027 Hepatitis B Immunization Aged Out No longer eligible based on patient's age to complete this topic Human Papillomavirus (HPV) Immunization Aged Out No longer eligible b ased on patient's age to complete this topic Meningococcal Immunization (ACWY) Aged Out No longer eligible based on patient's age to complete this topic Rotavirus Immunization Aged Out No lo nger eligible based on patient's age to complete this topic Insurance [facility] Care Teams Impregnating Helper Relationship Specialty Start Date End Date Provider, Unknown UNKNOWN PCP - General 07/02/25
--- OUTSIDE RECORDS SUMMARY | 2025-07-02 14:19 | XMS_ITS | Encounter Summary ---
Author Organization [employer] Care Team Providers Care Manager Personnel Selection Name Role Phone Provider, Unknown Primary Care Provider Unavaila ble Encounter Details Date Type Department Care Team (Latest Contact Info) Description 07/02/2025 Travel Social History Tobacco Use Types Packs/Day Years Used Date Smoking Tobacco: Former Cigarettes Smokeless Tobacco: Never Comments No Sex and Gender Information Value Date Recorded Sex Assigned at Not on file Legal Sex Female 12:04 PM CDT Gender Identity Not on file Sexual Orientation Not on file documented as of this encounter Plan of Treatment Not on file documented as of this encounter Visit Diagnoses Not on filedocumented in this encounter Care Teams Manager Personnel Selection Relationship Specialty Start Date End Date Provider, Unknown UNKNOWN PCP - General 07/02/25 documented as of this encounter
[2025-07-02 14:36] LABS: Hematocrit 46.6 % (37.0-47.0); Hemoglobin 14.6 g/dL (12.0-15.0); Immature Granulocyte Percent A 0.1 % (0-0.5); Lymphocytes Absolute Auto 1.71 K/mm3 (0.9-3.2); Mean Corpuscular HGB Conc 31.3 g/dl (32-36); Mean Corpuscular Hemoglobin 29.0 pg (26-34); Mean Corpuscular Volume 92.6 fl (80-100); Nucleated Red Blood Cells Absolute Auto 0.000 K/mm3 (0.0-0.012); Nucleated Red Blood Cells Perc 0.0 % (0.0-0.2); Platelet Count Result 174 k/mm3 (150-375); Red Blood Count 5.03 M/mm3 (4.2-5.4); White Blood Count 6.7 K/mm3 (4.5-10.0)
[2025-07-02 14:37] LABS: Alanine Aminotransferase 44 U/L (6-35); Albumin Level 4.1 g/dL (3.5-5.1); Alkaline Phosphatase 77 U/L (38-126); Anion Gap 12 mmol/L (4-12); Aspartate Amino Transferase 52 U/L (14-36); Bilirubin,Total 0.8 mg/dL (0.2-1.3); Blood Urea Nitrogen 16 mg/dL (7-17); Calcium 10.0 mg/dL (8.4-10.2); Carbon Dioxide 22 mmol/L (22-30); Chloride 103 mmol/L (98-107); Estimated CRCL calculation 47 ml/min; Estimated Glomerular Filt Rate 59; Glucose 100 mg/dL (65-110); Magnesium 1.0 mg/dL (1.6-2.3); Potassium 3.9 mmol/L (3.4-5.0); Sodium 137 mmol/L (137-145); Total Protein 7.5 g/dL (6.3-8.2)
--- OUTSIDE RECORDS SUMMARY | 2025-07-02 14:45 | XMS_ITS | Clinical Summary ---
Author Organization [facility] Address [address] [place] [phone] Phone Care Team Providers Care Campground Hand Name Role Phone Provider, Unknown Primary Care [...] 07/02/2025 12:20 PM CDT [facility] [address] [place] [address] Michelle Rubi, YELITZA, CAMPAIGN DIRECTOR Dizziness (Primary Dx); Nausea and vomiting, unspecified [...] to complete this topic [facility] Care Teams Campground Hand Relationship Specialty Start Date End Date Provider, Unknown UNKNOWN PCP - General 07/02/25
--- OUTSIDE RECORDS SUMMARY | 2025-07-02 14:45 | XMS_ITS | Encounter Summary ---
Author Organization [employer] Care Team Providers Care Chef Teacher Name Role Phone Provider, Unknown Primary Care [...] on filedocumented in this encounter Care Teams Chef Teacher Relationship Specialty Start Date End Date Provider, Unknown UNKNOWN PCP - General 07/02/25 documented as of this encounter
[2025-07-02 14:47] LABS: Influenza A QL RT-PCR Negative (Negative); Influenza B QL RT-PCR Negative (Negative); RSV RNA, RT-PCR Negative (Negative); SARS-CoV-2 RNA PCR Negative (Negative)
--- NOTE | 2025-07-02 15:39 | ED.RECABL ---
HPI - Recheck/Abnormal Lab/Rx General Chief Complaint: Recheck/Abnormal Lab/Rx Stated Complaint: sent from PCP office I'm dehydrated Time Seen by Provider: 07/02/25 13:56 Source: patient Mode of arrival: ambulatory Limitations: no limitations History of Present Illness HPI narrative: Patient is a 75-year-old female, with PMH of AFIB on xarelto, DM, HTN, who presents the ED with report of dehydration. Patient reports she has not been feeling well for the past 2 weeks. Has been feeling weak, fatigued. Also reports having intermittent headaches, nausea, diarrhea, intermittent lower abdominal discomfort, decreased p.o. intake, lightheadedness. Did have vomiting, last episode was on Saturday. She states she went to an urgent care and was told she was dehydrated to come to the ED for further evaluation. Denies fevers, chest pain, shortness of breath, significant URI symptoms Related Data Home Medications ?Medication ?Instructions ?Recorded ?Confirmed ?Last Taken ?Type [id number] 8 mg-folic 400 1 tablet PO DAILY 06/24/24 05/17/25 Unknown History mcg-K 50 mcg-lutein 300 mcg tablet (Centrum Silver Women) Allergies Allergy/AdvReac Type Severity Reaction Status Date / Time latex Allergy Severe Itching Verified 05/17/25 08:59 Sulfa (Sulfonamide Allergy Severe Rash Verified 05/17/25 08:59 Antibiotics) acetaminophen (From [place]) AdvReac Severe Hallucinati Verified 05/17/25 08:59 ng hydrocodone (From [place]) AdvReac Severe Hallucinati Verified 05/17/25 08:59 ng hydromorphone (From Dilaudid) AdvReac Severe Hallucinati Verified 05/17/25 08:59 ng kiwi Allergy Severe Swelling Uncoded 04/13/25 15:37 of Lip/Tongue/Throat Review of Systems Review of Systems: All systems reviewed & are unremarkable except as noted in HPI. All systems reviewed & are unremarkable except as noted in HPI and below PMFSH Past Medical History Medical History Bilateral occipital neuralgia Migraine syndrome TIA (transient ischemic attack) Cerebral infarction MCI (mild cognitive impairment) Failed total left knee replacement T2DM (type 2 diabetes mellitus) Neuropathy Hypothyroidism Mixed connective tissue disease Polyarteritis nodosa HLD (hyperlipidemia) Hypertension PAF (paroxysmal atrial fibrillation) Irritable bowel syndrome Stroke (~2021) Migraine Arthritis Anxiety Surgical History Surgical History History of carpal tunnel surgery H/O decompression of ulnar nerve Hx of cholecystectomy H/O: hysterectomy Family History Family History Father Diabetes mellitus Hypertension Anxiety Depression Mother Depression Hypertension Anxiety Diabetes mellitus Sibling Alcoholism Cancer Cerebrovascular accident Daughter Breast cancer Hypertension Diabetes mellitus Social History Social History Smoking status: Former smoker Second hand tobacco smoke exposure: No Smoking end date: 10/21/98 Alcohol intake: current Drinks per week: 1 Substance use: never Substance use type: does not use Do You Feel Safe in your Home?: Yes Lack of Transportation: No Lack of Food: Never True Current Housing: I Have Housing Concerned About Future Housing: No Difficulty Paying Gas/Electric Bills: No Difficulty Paying for Meds: No Currently Unemployed: No Education: Bachelor's Degree Difficulty w/ Childcare or Family Care: No Occupation/Education: retired Gender identity (if verbalized by the patient): Female Sexual Orientation (if Verbalized by the Patient): Straight or Heterosexual Spiritual care concerns: No Agree to blood products: No Exam Narrative: GENERAL: Elderly, obese with BMI of 32.9 non-toxic, in no acute distress. HEAD: Normocephalic, atraumatic. RESPIRATORY: Airway patent, respirations nonlabored. Clear to auscultation bilaterally, no rales, rhonchi, wheezing. CARDIOVASCULAR: Regular rate and rhythm without murmurs, rubs, or gallops. ABDOMINAL: Soft, mild diffuse tenderness in lower abdomen, nondistended. Normoactive BS. MUSCULOSKELETAL: Moves all extremities. No gross deformities. SKIN: Warm, dry, normal color. NEURO: A&O X3. Speech clear. Cranial nerves II-XII grossly intact. Steady gait. No ataxic movements. No focal deficits. PSYCHIATRIC: Appropriate mood and affect. Normal interaction. Course Vital Signs Vital signs: Vital Signs Temperature 97.6 F 07/02/25 13:32 Pulse Rate 66 07/02/25 13:32 Respiratory Rate 18 07/02/25 13:32 Blood Pressure 107/62 07/02/25 13:32 Pulse Oximetry 98 07/02/25 13:32 Oxygen Delivery Room Air 07/02/25 13:32 Temperature 98.7 F 07/02/25 17:31 Pulse Rate 107 H 07/02/25 17:31 Respiratory Rate 14 07/02/25 17:31 Blood Pressure 136/96 H 07/02/25 17:31 Pulse Oximetry 99 07/02/25 17:31 Oxygen Delivery Room Air 07/02/25 13:32 MDM - Recheck/Abnormal Lab/Rx MDM Narrative Medical decision making narrative: Patient presented to ED with generalized weakness, fatigue, nausea, diarrhea, headaches, dehydration. Vital signs are stable upon arrival. Blood pressure in the low 100s. Fluids initiated. Neurologically intact. No focal deficits. Laboratory studies without leukocytosis or anemia. Kidney function is stable. Lactic acid within normal range at 1.8. Magnesium was low at 1.0. Given 2G IV replacement. Minimal transaminitis. UA with 1+ ketones, consistent with infection as well. Sent for culture. Given dose of Rocephin in the ED. Viral swabs are negative. CT brain without acute findings. CT abd/pelvis with evidence of cystitis, possible gastritis, possible enteritis. No other concerning features. Discussed lab and imaging findings with patient. She is feeling improved after fluids. Asking for something to eat. She does admit that she has not taken her normal medications in the last several days and typically does take a magnesium supplementation. Discussed importance of taking normal home medications as prescribed. Will prescribe Mag supplement for the next 1 week. Will also prescribe Zofran for home, Keflex for UTI. Discussed discharge home. Patient is in agreement with this. She feels comfortable going home. Would prefer to go home. Advised close follow-up with PCP. She states she has an appointment on Saturday. Advised patient to stay well hydrated at home, given strict return precautions. She is in agreement with plan. Discharged in stable condition. Medical Records Attestation: I reviewed the patient's medical records. Lab Data Attestation: I reviewed the patient's lab results. 07/02/25 14:20 07/02/25 14:20 Labs: Lab Results 07/02/25 07/02/25 Range/Units 14:07 14:20 WBC 6.7 (4.5-10.0) K/mm3 RBC 5.03 (4.2-5.4) M/mm3 Hgb 14.6 D (12.0-15.0) g/dL Hct 46.6 (37.0-47.0) % MCV 92.6 (80-100) fl MCH 29.0 (26-34) pg MCHC 31.3 L (32-36) g/dl RDW 16.5 H (11.5-14.5) % Plt Count 174 (150-375) k/mm3 MPV 10.7 H (7.4-10.4) fl Immature Gran % (Auto) 0.1 (0-0.5) % Neut % (Auto) 65.5 (45.5-73.1) % Lymph % (Auto) 25.4 (18.3-44.2) % Porter % (Auto) 6.8 (2.6-8.5) % Eos % (Auto) 1.9 (0-4.4) % Baso % (Auto) 0.3 (0.2-1.2) % Lymph # (Auto) 1.71 (0.9-3.2) K/mm3 Porter # (Auto) 0.5 (0.1-0.6) K/mm3 Eos # (Auto) 0.1 (0-0.3) K/mm3 Baso # (Auto) 0.0 (0.0-0.1) K/mm3 Abs Immat Gran (auto) 0.01 (0.00-0.031) K/mm3 Absolute Neuts (auto) 4.4 (1.3-6.7) K/mm3 Absolute Nucleated RBC 0.000 (0.0-0.012) K/mm3 Nucleated RBC % 0.0 (0.0-0.2) % Sodium 137 (137-145) mmol/L Potassium 3.9 (3.4-5.0) mmol/L Chloride 103 (98-107) mmol/L Carbon Dioxide 22 (22-30) mmol/L Anion Gap 12 (4-12) mmol/L BUN 16 (7-17) mg/dL Creatinine 0.93 (0.7-1.0) mg/dL Estim Creat Clear Calc 47 ml/min Estimated GFR 59 (59 - ) Glucose 100 (65-110) mg/dL Lactic Acid 1.8 (0.7-2.0) mmol/L Calcium 10.0 (8.4-10.2) mg/dL Magnesium 1.0 L (1.6-2.3) mg/dL Total Bilirubin 0.8 (0.2-1.3) mg/dL AST 52 H (14-36) U/L ALT 44 H (6-35) U/L Alkaline Phosphatase 77 (38-126) U/L Total Creatine Kinase 35 (30-135) U/L Total Protein 7.5 (6.3-8.2) g/dL Albumin 4.1 (3.5-5.1) g/dL Urine Color Dark yellow (Yellow) Urine Appearance Cloudy H (Clear) Urine pH 5.0 (5.0-9.0) Ur Specific [place] 1.028 (1.001-1.035) Urine Protein 1+ H (Negative) mg/dL Urine Glucose (UA) Negative (Negative) mg/dL Urine Ketones 1+ H (Negative) mg/dL Ur Blood (Man) Negative (Negative) Urine Nitrate Negative (Negative) Urine Bilirubin 2+ H (Negative) Urine Urobilinogen 1.0 (<2.0) mg/dL Add Ur Microanalysis Reviewed Leukocyte Esterase Rfl 2+ H (Negative) NENA/UL Urine RBC 6-10 H (0-2) /hpf Urine WBC >100 H (0-3) /hpf Ur Squamous Epith Cells Occasional (Few) /hpf Urine Bacteria 4+ H /hpf Urine Casts >20 Influenza A (RT-PCR) Negative (Negative) Influenza B (RT-PCR) Negative (Negative) RSV (RT-PCR) Negative (Negative) SARS-CoV-2 RNA (RT-PCR) Negative (Negative) Imaging Data Attestation: I personally reviewed and interpreted this imaging study as follows: Radiologist's impression: ITS Impressions Head CT 07/02/25 15:51 IMPRESSION: 1. Unchanged small old infarcts in the cerebellum, left occipital lobe, right insula and right frontal lobe. No acute intracranial process. Abdomen/Pelvis CT 07/02/25 15:52 IMPRESSION: 1. Thickening of the garcia of the cardia and body of the stomach. Differential includes incomplete stomach wall distention or gastritis. Other etiologies are possible. If of concern, consider an upper GI examination. 2. Concentric thickening of the garcia of the mildly distended bladder. Differential includes incomplete bladder wall distention or cystitis. 3. Thickening of the garcia of a few small bowel loops in the left abdomen. Differential includes incomplete bowel wall distention versus enteritis. ECG Data EKG #1: Attestation: I personally reviewed and interpreted this ECG as follows: ECG completion date: 07/02/25 ECG completion time: 14:18 EKG Interpretation: normal rate (92), atrial fibrillation and non-specific ST changes Discharge Plan Discharge Clinical Impression: Generalized weakness, Hypomagnesemia UTI (urinary tract infection) Qualifiers: Urinary tract infection type: acute cystitis Hematuria presence: with hematuria Qualified Code(s): N30.01 - Acute cystitis with hematuria Patient Disposition: Home Condition: Stable Instructions: Antibiotic Form, Urinary Tract Infection in Women (ED), Weakness (ED), Hypomagnesemia (ED) Additional Instructions: Take antibiotics as prescribed for urinary tract infection. Take your home medications as prescribed. It is important you do not miss doses. Take magnesium supplement as prescribed for the next 1 week. Stay very well hydrated. Utilize Zofran as needed for nausea. Follow-up closely with your primary care doctor for further evaluation. Return to the ED if you experience worsening or severe symptoms, numbness or weakness of arm or leg, unable to keep down food or drink, severe pain, persistent fevers, chest pain, difficulty breathing, or any other symptoms of concern. Patient Language: Greenlandic Prescriptions: New magnesium oxide 400 mg magnesium capsule 400 mg PO DAILY 7 Days Qty: 7 0RF cephalexin 500 mg capsule 500 mg PO Q6H 7 Days Qty: 28 0RF ondansetron 4 mg tablet,disintegrating 4 mg PO Q8H PRN (Reason: nausea and vomiting) Qty: 15 0RF No Action Centrum Silver Women 8 mg iron-400 mcg-50 mcg tablet 1 tablet PO DAILY duloxetine 30 mg capsule,delayed release(DR/EC) 60 mg PO DAILY Qty: 300 1RF gabapentin 300 mg capsule 600 mg PO .HS Qty: 300 1RF topiramate 25 mg capsule,extended release 24hr 50 mg PO QHS Qty: 180 0RF albuterol sulfate 90 mcg/actuation HFA aerosol inhaler 1 puff inhalation Q4H PRN (Reason: shortness of breath or wheezing) 90 Days Qty: 3 1RF aripiprazole [Abilify] 5 mg tablet 5 mg PO QHS Qty: 90 2RF budesonide-formoterol [Symbicort] 160-4.5 mcg/actuation HFA aerosol inhaler 2 puff inhalation Q12H 90 Days Qty: 3 1RF docusate sodium [Colace] 100 mg capsule 100 mg PO QID Qty: 360 0RF krill oil 500 mg capsule 500 mg PO BID Qty: 180 1RF Rx Instructions: morning and noon levothyroxine 50 mcg tablet 50 mcg PO DAILY Qty: 90 3RF loratadine [Allergy Relief (loratadine)] 10 mg tablet 10 mg PO DAILY Qty: 90 1RF omeprazole 20 mg capsule,delayed release(DR/EC) 20 mg PO DAILY Qty: 90 3RF pentoxifylline 400 mg tablet extended release 400 mg PO TID Qty: 270 3RF Rx Instructions: must administer with a meal/food furosemide 20 mg tablet 20 mg PO QAM Qty: 90 2RF potassium chloride 10 mEq capsule, extended release 10 meq PO .TWICE WEEKLY Qty: 90 0RF Rx Instructions: when taking Furosemide ezetimibe [Zetia] 10 mg tablet 10 mg PO HS Qty: 100 2RF metoprolol succinate 50 mg tablet extended release 24 hr 50 mg PO DAILY Qty: 100 2RF atorvastatin 40 mg tablet 40 mg PO HS Qty: 90 3RF diltiazem HCl [Cardizem CD] 120 mg capsule,extended release 24hr 120 mg PO DAILY Qty: 90 2RF Ozempic 0.25 mg or 0.5 mg (2 mg/3 mL) pen injector 0.25 mg subcut WEEKLY Qty: 9 3RF Xarelto 20 mg tablet 20 mg PO QPM Qty: 90 3RF Rx Instructions: must administer with evening meal lubiprostone 24 mcg capsule See Rx Instructions .ROUTE .COMPLEX Qty: 200 2RF Dose Instruction: TAKE 1 CAPSULE BY MOUTH TWICE DAILY Rx Instructions: TAKE 1 CAPSULE BY MOUTH TWICE DAILY hydroxychloroquine 200 mg tablet 200 mg PO DAILY Qty: 100 1RF Follow-up/Referrals: Angelica Rodriguez MD [Primary Care Provider, Family Practice] Time of Disposition: 17:17
[2025-07-02] MEDS: SODIUM CHLORIDE 0.9% IV 1,000 ML 999 ML IV CONT (15:47)
[2025-07-02] MEDS: MAGNESIUM SULF 2 GM/WATER 50ML 2 GM/50 ML BAG IVPB (15:50)
[2025-07-02 15:52] LABS: Add Urine Microscopic? YES; Appearance Urine Cloudy (Clear); Glucose Urine UA Negative (Negative); Leukocyte Esterase Ur 2+ LEU/UL (Negative); Need Manual Microscopic Reviewed; Nitrate Urine Negative (Negative); Non Pathogenic Casts >20; Specific Grav Ur 1.028 (1.001-1.035)
[2025-07-02 16:31] LABS: Creatine Kinase 35 U/L (30-135)
[2025-07-02] MEDS: cefTRIAXone 1 GM in SODIUM CHLORIDE 0.9% IV 50 ML 100 ML IVPB (17:07)
== END 2025-07-02 17:42 | disposition home or self-care (01) ==
PROVIDERS: Emergency Provider Physician Assistant; PCP Family Medicine
DX: N30.01 Acute cystitis with hematuria (principal); R53.1 Weakness; E83.42 Hypomagnesemia; I48.91 Unspecified atrial fibrillation; E11.9 Type 2 diabetes mellitus without complications; I10 Essential (primary) hypertension; E03.9 Hypothyroidism, unspecified; E78.5 Hyperlipidemia, unspecified; I48.0 Paroxysmal atrial fibrillation; Z79.01 Long term (current) use of anticoagulants; Z86.73 Personal history of transient ischemic attack (TIA), and cerebral infarction without residual deficits; Z87.891 Personal history of nicotine dependence; Z20.822 Contact with and (suspected) exposure to COVID-19
CPT/HCPCS: 36415; 70450; 74177; 80053; 81001; 82550; 83605; 83735; 85025; 87086; 87186; 87637; 93005; 96365; 96367; 99284; J0696; J3475; J7030; Q9967

== ENCOUNTER 2025-07-16 10:12 | Outpatient (CLI) | payer MEDICARE, SELFPAY ==
--- OUTSIDE RECORDS SUMMARY | 2025-07-16 10:18 | XMS_ITS | Clinical Summary ---
Author Organization [facility] Address [address] [place] [id number] Phone Care Team Providers Care Wire Frame Maker Name Role Phone Provider, Unknown Primary Care [...] 07/02/2025 12:20 PM CDT [facility] [address] [place] [address] Michelle Rubi, YELITZA, ADVOCACY DIRECTOR Dizziness (Primary Dx); Nausea and vomiting, [...] to complete this topic Insurance [facility] Wire Frame Maker Relationship Specialty Start Date End Date Provider, Unknown UNKNOWN PCP - General 07/02/25
[2025-07-16 11:03] LABS: Alanine Aminotransferase 25 U/L (6-35); Albumin Level 3.8 g/dL (3.5-5.1); Alkaline Phosphatase 75 U/L (38-126); Anion Gap 6 mmol/L (4-12); Aspartate Amino Transferase 32 U/L (14-36); Bilirubin,Total 0.3 mg/dL (0.2-1.3); Blood Urea Nitrogen 21 mg/dL (7-17); Calcium 10.2 mg/dL (8.4-10.2); Carbon Dioxide 28 mmol/L (22-30); Chloride 101 mmol/L (98-107); Estimated Glomerular Filt Rate 55; Glucose 115 mg/dL (65-110); Magnesium 1.6 mg/dL (1.6-2.3); Potassium 4.3 mmol/L (3.4-5.0); Sodium 135 mmol/L (137-145); Total Protein 6.9 g/dL (6.3-8.2)
== END 2025-07-16 10:13 | disposition home or self-care (01) ==
PROVIDERS: PCP Family Medicine; Visit Provider Student in an Organized Health Care Education/Training Program
DX: E83.42 Hypomagnesemia (principal)
CPT/HCPCS: 36415; 80053; 83735

== ENCOUNTER 2025-09-27 09:11 | Outpatient (CLI) | payer MEDICARE, SELFPAY ==
--- NOTE | ~2025-09-27 | NM_ITS ---
EXAMINATION: NM arley stress w perfusion DATE: 09/27/2025 12:19 INDICATION: Preprocedural cardiovascular examination TECHNIQUE: Rest images were obtained following intravenous administration of 8.6 mCi Tc99m tetrofosmin (Myoview). The patient was infused intravenously with Lexiscan (Regadenoson). Then, 28.5 mCi Tc99m tetrofosmin (Myoview) was administered intravenously, and stress images were obtained. Data was recon structed into short axis and horizontal and vertical long axis SPECT images. Gated SPECT images were also obtained. COMPARISON: None. FINDINGS: There is no definite reversible or fixed perfusion abnormality to suggest ischemia or infarction. There is normal left ventricular chamber size, wall motion and ejection fraction. Left ventricular ejection fraction measures >70%. IMPRESSION: 1. Normal myocardial perfusion at rest and during stress. 2. Left ventricular ejection fraction measuring >70%. Reviewed, dictated and finalized at location A. [employer] PROGRAM SPECIALIST
--- NOTE | 2025-09-27 09:41 | EST_ITS ---
Patient Info Name: Roxana Mathews Age: 75 years : 1950 Gender: Female Ht: 62 in Wt: 185 lbs BSA: 1.95 m2 HR: 83 bpm BP: 139 / 62 mmHg Exam Date: 09/27/2025 9:41 AM Patient Status: O Admit Date: 09/27/2025 Exam Type: CA stress arley w NM A regadenoson stress test was performed. Staff Referring Physician: Pravin Rivera DO Attending Provider: Pravin Rivera DO Exercise Technologist: Marlene Bernal Exercise Physician: Pravin Rivera DO Summary 1. 1. Negative lexiscan stress test for ischemic ST changes by ECG criteria. 2. 2. Stable hemodynamics throughout the test. 3. 3. Nuclear scan to follow and will be reported separately. Please correlate with it. 4. 4. Patient informed of the above results. Protocol: Lexiscan Stress ECG Details Stage: REST Duration (min): 1 min : 19 sec HR (bpm): 80 SBP (mmHg): 139 DBP (mmHg): 62 Stage: REST Duration (min): 6 min : 31 sec HR (bpm): 88 SBP (mmHg): 139 DBP (mmHg): 62 Stage: STAGE 1 Duration (min): 0 min : 59 sec HR (bpm): 93 SBP (mmHg): 139 DBP (mmHg): 62 Stage: RECOVERY Duration (min): 1 min : 0 sec HR (bpm): 96 SBP (mmHg): 139 DBP (mmHg): 62 Stage: RECOVERY Duration (min): 2 min : 0 sec HR (bpm): 91 SBP (mmHg): 111 DBP (mmHg): 52 Stage: RECOVERY Duration (min): 3 min : 0 sec HR (bpm): 84 SBP (mmHg): 111 DBP (mmHg): 52 Stage: RECOVERY Duration (min): 3 min : 23 sec HR (bpm): 104 SBP (mmHg): 111 DBP (mmHg): 52 Rest HR: 88 bpm Peak HR: 104 bpm Rest Sys BP: 139 mmHg Peak Sys BP: 111 mmHg Max Pred HR: 147 bpm % Max Pred HR: 71 % Target HR: 125 bpm Max RPP: 11,544 bpm*mmHg Termination Reason: Completed protocol Cardiac Symptoms: Shortness of breath Total Time: 1 min : 0 sec Rest Strat[place] BP: 62 mmHg Peak [place] BP: 52 mmHg Total Dose: 0.4 mg Resting ECG Atrial fibrillation. Stress ECG No ST changes. Arrhythmias None. Report Signatures
== END 2025-09-27 09:12 | disposition home or self-care (01) ==
LOC: ANHCARD 09:12
PROVIDERS: PCP Family Medicine; Visit Provider Internal Medicine Cardiovascular Disease
DX: Z01.810 Encounter for preprocedural cardiovascular examination (principal); E78.5 Hyperlipidemia, unspecified; E11.9 Type 2 diabetes mellitus without complications; I10 Essential (primary) hypertension; I48.0 Paroxysmal atrial fibrillation; E03.8 Other specified hypothyroidism; K21.9 Gastro-esophageal reflux disease without esophagitis; K59.09 Other constipation; M30.0 Polyarteritis nodosa; G43.909 Migraine, unspecified, not intractable, without status migrainosus; G62.9 Polyneuropathy, unspecified; G47.33 Obstructive sleep apnea (adult) (pediatric)
CPT/HCPCS: 78452; 93017; A9502; J2785

== ENCOUNTER 2025-10-04 12:30 | Outpatient (RCR) | payer MEDICARE, SELFPAY ==
--- NOTE | 2025-08-13 12:07 | OTOPEVAL1 ---
Assessment and note entered by Susanne Myrick OT Evaluation Information Assessment Status Evaluation Diagnosis Lymphedema ICD-10 Condition Codes (OT) Lymphedema I89.0 Onset 5- 6 Subjective Information Pt. presents with spouse, without use of mobility device. 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 Pt. states The swelling will get so bad that it' gets tight in my pants and leaves indentations in my skin. My skin is dry and flakey , and it will start to hurt. Pt. states L > R in terms of swelling and pain, going from ankles to below knee, and often in feet. Pt. reports she has attempted off the shelf compression socks which do not fit her properly and become too tight. Pt. reports she has an adjustable bed, which she often elevates her legs with, but his intermittent success with reduced swelling with elevation Reported Pain Level Pain Score 5: Self Report Assessment OT Clinical Summary Pt. is active 75 year old F, presenting with symptoms consistent with Stage 1 Lymphedema, with including bilateral LE swelling L > R, with occasional foot and ankle swelling, negative stemmer sign, and redness in L calf. Pt. reports swelling is painful and often can feel like burning limiting comfort in clothing and tolerance for standing activity. Pt. will benefit from skilled OT services for complete decongestive treatment including manual lymph drainage, use of vasoneumatic compression pump, and short stretch compression bandaging to reduce limb volume, pain, and symptoms, with education for eventual maintenance of condition. Plan of Care Interventions Therapeutic Exercise,Manual Therapy,Therapeutic Activities,Other Other Interventions vasopneumatic compression OT Services Indicated Yes Treatment Frequency and 3 x/wk for 10 visits Duration These treatments will address the objective and functional deficits as defined above. The patient will be advanced safely and appropriately in order for the patient to progress towards his/her prior level of function. Additional exercises will be introduced and as well as a comprehensive home exercise program upon discharge, if needed, ?to ensure carryover of functional gains achieved in the clinic. This treatment plan has been reviewed and agreement upon by the patient.
--- NOTE | 2025-08-13 12:07 | OPREHPOC ---
Outpatient Therapy Plan of Care This is a Multidisciplinary Plan of Care that may contain components documented by all disciplines (PT, OT, and ST.) OT Problem 1 OT Problem #1 Knowledge Deficit OT Goal 1 Goal / Goal Update Pt. will demonstrate independence in HEP Pt. will demonstrate independence in self manual lymph drainage routine Pt. will demonstrate independence in compression garment wear schedule Target Visit 20 OT Problem 2 OT Problem #2 Pain OT Goal 1 Goal / Goal Update Pt. will report <1/10 pain 5/7 day per week with regular activity Target Visit 20 OT Problem 3 OT Problem #3 Impaired Lymphatic System OT Goal 1 Goal / Goal Update Pt. will display L LE volume measurement of <400 cm up to 44 cm from base of heel Target Visit 20
--- NOTE | 2025-09-03 17:21 | OTOPPROG ---
Assessment and note entered by Susanne Myrick, OT Evaluation Information Assessment Status Progress Assessment OT Clinical Summary Pt. is active 75 year old F, presents for progress note with symptoms consistent with Stage 1 Lymphedema, with including bilateral LE swelling L > R, with occasional foot and ankle swelling, negative stemmer sign, and redness in L calf. Pt. frequently decreased overall pain during treatments, with 24.25 cm volume reduction in R LE and 8.5 cm volume reduction in LE with intensive phase of complete decongestive treatment. Pt. is committed to treatment has made excellent progress , and will benefit from continued skilled OT services for complete decongestive treatment including manual lymph drainage, use of vasoneumatic compression pump, and short stretch compression bandaging, while awaiting arrival of LE compression garment, and continued education and training for long-term maintenance of condition. Plan of Care Interventions Therapeutic Exercise,Manual Therapy,Therapeutic Activities,Other Other Interventions valsoneumatic compression OT Services Indicated Yes Treatment Frequency and 3 x/wk for 10 visits Duration These treatments will address the objective and functional deficits as defined above. The patient will be advanced safely and appropriately in order for the patient to progress towards his/her prior level of function. Additional exercises will be introduced and as well as a comprehensive home exercise program upon discharge, if needed, ?to ensure carryover of functional gains achieved in the clinic. This treatment plan has been reviewed and agreement upon by the patient.
--- NOTE | 2025-09-03 17:23 | OPREHPOC ---
Outpatient Therapy Plan of Care This is a Multidisciplinary Plan of Care that may contain components documented by all disciplines (PT, OT, and ST.) OT Problem 1 OT Problem #1 Knowledge Deficit OT Goal 1 Goal / Goal Update Pt. will demonstrate independence in HEP Pt. will demonstrate independence in self manual lymph drainage routine Pt. will demonstrate independence in compression garment wear schedule Progress 09/03/25 1) partially met, continue 2) partially met, continue 3) not met, continue Target Visit 20 Progress Partially Met OT Problem 2 OT Problem #2 Pain OT Goal 1 Goal / Goal Update Pt. will report <1/10 pain 5/7 day per week with regular activity Progress 09/03/25 1) partially met, continue Target Visit 20 Progress Partially Met OT Problem 3 OT Problem #3 Impaired Lymphatic System OT Goal 1 Goal / Goal Update Pt. will display L LE volume measurement of <400 cm up to 44 cm from base of heel Progress 09/03/25 1) partially met, continue Target Visit 20 Progress Partially Met
--- NOTE | 2025-09-20 15:30 | OTOPPROG ---
Assessment and note entered by Susanne Myrick OT Evaluation Information Assessment Status Evaluation Diagnosis Lymphedema ICD-10 Condition Codes (OT) Lymphedema I89.0 Onset 5- 6 years ago Subjective Information Pt. reports she had a lot of swelling over the holiday weekend in her L LE, with some in her R LE . Pt. reports she was very active and up and cooking on , swelling did go down some, but she has has increased pain bilaterally, greater in R LE in [place] and knee, bottom of feet . Pt. reports I wanted to wear my boots today, but my legs were too swollen. Pt. states The pump feels so good, it always reduces my pain for almost a whole day after I leave. My right leg used to swell so much , but it also doesn't swell as much when I come Assessment OT Clinical Summary Pt. is active 75 year old F, presents for progress note with symptoms consistent with Stage 1 Lymphedema, with including bilateral LE swelling L > R, with occasional foot and ankle swelling, negative stemmer sign, and redness in L calf. Pt. frequently decreased overall pain during treatments, with progressing volume reduction in L and R LE with intensive phase of complete decongestive treatment. Pt. is committed to treatment has made excellent progress, and will benefit from continued skilled OT services for complete decongestive treatment including manual lymph drainage, use of vasoneumatic compression pump training, and compression garment management training, to ensure transition to independent long -term management of condition. Plan of Care Interventions Therapeutic Exercise,Manual Therapy,Therapeutic Activities,Other Other Interventions vasoneumatic compression OT Services Indicated Yes Treatment Frequency and 2x/wk for 6 visits Duration These treatments will address the objective and functional deficits as defined above. The patient will be advanced safely and appropriately in order for the patient to progress towards his/her prior level of function. Additional exercises will be introduced and as well as a comprehensive home exercise program upon discharge, if needed, ?to ensure carryover of functional gains achieved in the clinic. This treatment plan has been reviewed and agreement upon by the patient.
--- NOTE | 2025-10-04 17:37 | OTOPDC ---
Assessment and note entered by Susanne Myrick OT Discharge Information Assessment Status Discharge Diagnosis Lymphedema ICD-10 Condition Codes (OT) Lymphedema I89.0 Onset 5- 6 years ago Subjective Information Pt. reports she was on her feet a lot over the weekend and had some cramping in her L ankle. Pt. reports otherwise she has not had additional pain. Pt. reports she got her new velcro compression garment on Saturday and her [employer] pump on Saturday. Pt. states that she feels confident in the management of her condition Reported Pain Level Pain Score 0: Self Report Assessment OT Clinical Summary Pt. is active 75 year old F, presents for progress note with symptoms consistent with Stage 1 Lymphedema, with including bilateral LE swelling L > R, with occasional foot and ankle swelling, negative stemmer sign, R swelling intermittent, worse in summer months. Pt. has completed intensive phase of complete decongestive treatment including short stretch compression bandaging, manuals lymph drainage, exercises, elevation, and manual lymph drainage, with education for transition to maintenance phase of treatment. Pt. L LE symptoms are currently managed with decreased overall swelling, with demonstrating ability to perform self manual lymph drainage, manage compression garments, and use of compression pump. Pt. reports confidence in independent long-term management of condition, and is agreeable to discharge on this date. Plan of Care OT Services Indicated No
== END 2025-10-05 09:39 | disposition home or self-care (01) ==
LOC: ANHOT 12:30
PROVIDERS: PCP Family Medicine; Visit Provider Student in an Organized Health Care Education/Training Program
DX: I89.0 Lymphedema, not elsewhere classified (principal)
CPT/HCPCS: 29581; 97016; 97110; 97140; 97165; 97530; 97535